=== PATIENT | female | born 1975 | race Two or more races ===

== ENCOUNTER 2020-02-10 22:58 | Emergency (ER) | payer MEDICAID, OTHER ==
[~2020-02-10] VITALS: Ht 154.9 cm; Wt 71.2 kg
[2020-02-10] MEDS ORDERED: LIDOCAINE HCL 1 % PF INJ 2ML AMP IJ ONE (23:30)
[2020-02-10 23:57] VITALS: BP 155/76
== END 2020-02-11 00:26 | disposition home or self-care (01) ==
LOC: ER 22:58
DX: L03.011 Cellulitis of right finger (principal)
CPT/HCPCS: 10060

== ENCOUNTER 2020-06-19 01:11 | Emergency (ER) | payer MEDICAID ==
[~2020-06-19] VITALS: Ht 152.4 cm; Wt 77.1 kg
[2020-06-19] MEDS ORDERED: ONDANSETRON ODT 4 MG TAB PO ONE (01:15)
[2020-06-19 01:23] VITALS: BP 144/117
[2020-06-19] MEDS ORDERED: LORazepam 0.5 MG TAB PO ONE (01:30)
[2020-06-19 01:53] LABS: Urine Bacteria FEW /hpf (None Seen); Urine Blood Negative /uL (Negative); Urine Specific Gravity 1.014 (1.001-1.035); Urine WBC 3 /hpf (0 - 5)
== END 2020-06-19 06:30 | disposition left against medical advice (07) ==
LOC: ER 01:11
DX: R06.02 Shortness of breath (principal); Z53.21 Procedure and treatment not carried out due to patient leaving prior to being seen by health care provider
CPT/HCPCS: 71045; 81001; 93005; Q0162

== ENCOUNTER 2020-06-20 22:11 | Emergency (ER) | payer MEDICAID ==
[~2020-06-20] VITALS: Ht 160 cm; Wt 71.2 kg
[2020-06-20] MEDS ORDERED: LORazepam 2MG/ML-1ML VIAL IV ONE (23:00)
[2020-06-20 23:18] LABS: Urine Bacteria NONE SEEN /hpf (None Seen); Urine Blood Negative /uL (Negative); Urine Specific Gravity 1.036 (1.001-1.035); Urine WBC 1 /hpf (0 - 5)
[2020-06-20 23:18] LABS: Basophils # (auto) 0 10 ^3/uL (0-0.2); Eosinophils # (auto) 0.1 10 ^3/uL (0-0.8); Lymphocytes # (auto) 2.1 10 ^3/uL (0.4-5.4); Lymphocytes % (auto) 26.8 % (10.0-50.0); Monocytes # (auto) 0.4 10 ^3/uL (0-1.3); Nucleated Red Blood Cells % 0.1 %; Platelet Count (auto) 153 10^3/uL (140-450); White Blood Cell 7.7 10^3/uL (4.4-10.8)
[2020-06-20 23:19] LABS: Basophils % (auto) 0.5 % (0.0-2.0); Eosinophils % (auto) 1.4 % (0.0-7.0); Hematocrit 44.3 % (36.0-46.0); Hemoglobin 14.7 g/dL (12.2-16.2); Mean Corpuscular Hemoglobin 26.7 pg (28.0-32.0); Mean Corpuscular Hgb Conc. 33.1 g/dL (32.0-36.0); Mean Corpuscular Volume 80.8 fL (80.0-100.0); Monocytes % (auto) 5.6 % (0.0-12.0); Neutrophils % (auto) 65.7 % (37.0-80.0); Red Blood Cells 5.48 10^6/uL (4.0-5.20); Red Cell Distribution Width 14.1 % (11.8-14.3)
[2020-06-20 23:36] LABS: Alanine Aminotransferase 28 U/L (13-56); Albumin 3.5 g/dL (3.4-5.0); Anion Gap 8 (5-15); Aspartate Aminotransferase 17 U/L (15-37); BUN/Creatinine Ratio 10.1; Blood Urea Nitrogen 7 mg/dL (7-18); Calcium 8.4 mg/dL (8.5-10.1); Carbon Dioxide 21 mmol/L (21-32); Chloride 107 mmol/L (98-107); GFR African American 120 mL/min; GFR Non-African American 99 mL/min; Glucose 335 mg/dL (74-106); Magnesium 2.6 mg/dL (1.6-2.6); Potassium 3.3 mmol/L (3.5-5.1); Sodium 136 mmol/L (136-145)
[2020-06-20 23:41] LABS: Alkaline Phosphatase 159 U/L (45-117); Total Protein 7.7 g/dL (6.4-8.2)
[2020-06-20 23:42] LABS: Alcohol, Urine < 3.0 mg/dL (0-10); Amphetamine Screen, Urine NEGATIVE (NEGATIVE); Barbiturate Scree,Urine NEGATIVE (NEGATIVE); Benzodiazephine Screen, Urine NEGATIVE (NEGATIVE); Cannabinoid Screen, Urine NEGATIVE (NEGATIVE); Cocaine Screen, Urine NEGATIVE (NEGATIVE); Opiate Scree,Urine NEGATIVE (NEGATIVE); Phencyclidine Screen, Urine NEGATIVE (NEGATIVE)
[2020-06-21] MEDS ORDERED: ONDANSETRON HCL 4 MG/2 ML VIAL IV ONE (00:45)
[2020-06-21] MEDS ORDERED: MORPHINE SULFATE 4 MG/ML SYR/VIAL IV ONE (00:45)
[2020-06-21] MEDS ORDERED: ONDANSETRON ODT 4 MG TAB PO ONE (02:30)
[2020-06-21] MEDS ORDERED: HYDROcodone-ACET 5/325MG TAB PO ONE (02:30)
[2020-06-21 04:00] VITALS: BP 129/74
[2020-06-21] MEDS ORDERED: LORazepam 0.5 MG TAB PO ONE (04:45)
== END 2020-06-21 05:08 | disposition home or self-care (01) ==
LOC: ER 22:11
DX: R07.89 Other chest pain (principal); F41.9 Anxiety disorder, unspecified; Z88.0 Allergy status to penicillin; Z88.8 Allergy status to other drugs, medicaments and biological substances
CPT/HCPCS: 36415; 71045; 80053; 80307; 81001; 83735; 83880; 84484; 85025; 93005; 96374; 96375; 99285; J2060; J2270; J2405; Q0162

== ENCOUNTER 2020-10-14 17:28 | Emergency (ER) | payer MEDICAID ==
[~2020-10-14] VITALS: Ht 154.9 cm; Wt 80.7 kg
[2020-10-14 17:51] VITALS: BP 157/94
== END 2020-10-14 20:43 | disposition home or self-care (01) ==
LOC: ER 17:30
DX: J18.9 Pneumonia, unspecified organism (principal); Z20.828 Contact with and (suspected) exposure to other viral communicable diseases; Z88.0 Allergy status to penicillin
CPT/HCPCS: 36415; 71045; 87426; 99284; U0003

== ENCOUNTER 2020-10-16 13:56 | Emergency (ER) | payer MEDICAID ==
[~2020-10-16] VITALS: Ht 154.9 cm; Wt 77.1 kg
[2020-10-16 15:44] VITALS: BP 146/74
== END 2020-10-16 20:18 | disposition left against medical advice (07) ==
LOC: ER 13:56
DX: R06.02 Shortness of breath (principal); R05 Cough; R50.9 Fever, unspecified; Z53.21 Procedure and treatment not carried out due to patient leaving prior to being seen by health care provider
CPT/HCPCS: 93005

== ENCOUNTER 2022-03-27 00:57 | Emergency (ER) | payer MEDICAID ==
[~2022-03-27] VITALS: Ht 154.9 cm; Wt 74.8 kg
[2022-03-27 02:41] LABS: Urine Bacteria NONE SEEN /hpf (None Seen); Urine Blood Negative /uL (Negative); Urine Specific Gravity 1.016 (1.001-1.035); Urine WBC 1 /hpf (0 - 5)
[2022-03-27 03:09] LABS: Basophils # (auto) 0 10 ^3/uL (0-0.2); Basophils % (auto) 0.3 % (0.0-2.0); Eosinophils # (auto) 0.2 10 ^3/uL (0-0.8); Eosinophils % (auto) 1.8 % (0.0-7.0); Hematocrit 41.1 % (36.0-46.0); Hemoglobin 14.1 g/dL (12.2-16.2); Lymphocytes # (auto) 3.1 10 ^3/uL (0.4-5.4); Lymphocytes % (auto) 30.3 % (10.0-50.0); Mean Corpuscular Hemoglobin 27.6 pg (28.0-32.0); Mean Corpuscular Hgb Conc. 34.2 g/dL (32.0-36.0); Mean Corpuscular Volume 80.8 fL (80.0-100.0); Monocytes # (auto) 0.5 10 ^3/uL (0-1.3); Monocytes % (auto) 5.1 % (0.0-12.0); Neutrophils # (auto) 6.3 10 ^3/uL (1.6-8.6); Neutrophils % (auto) 62.5 % (37.0-80.0); Nucleated Red Blood Cells % 0.1 %; Red Blood Cells 5.09 10^6/uL (4.0-5.20); Red Cell Distribution Width 13.7 % (11.8-14.3); White Blood Cell 10.1 10^3/uL (4.4-10.8)
[2022-03-27 03:23] LABS: Albumin 3.9 g/dL (3.4-5.0); BUN/Creatinine Ratio 19.8; Calcium 8.9 mg/dL (8.5-10.1); Potassium 3.8 mmol/L (3.5-5.1)
[2022-03-27 03:25] LABS: Bilirubin, Total 0.7 mg/dL (0.2-1.0)
[2022-03-27] MEDS ORDERED: KETOROLAC TROMETH 60MG/2ML VIAL IM ONE (04:00)
[2022-03-27 04:53] VITALS: BP 111/71
== END 2022-03-27 04:55 | disposition home or self-care (01) ==
LOC: ER 00:57
DX: R10.31 Right lower quadrant pain (principal); E11.9 Type 2 diabetes mellitus without complications; Z88.0 Allergy status to penicillin; Z88.8 Allergy status to other drugs, medicaments and biological substances
CPT/HCPCS: 36415; 80053; 81001; 81025; 85025; 96372; 99283; J1885

== ENCOUNTER 2022-04-19 19:29 | Emergency (ER) | payer MEDICAID ==
[~2022-04-19] VITALS: Ht 152.4 cm; Wt 74.8 kg
[2022-04-19 19:29] VITALS: BP 147/62
[2022-04-19 20:50] LABS: Basophils # (auto) 0 10 ^3/uL (0-0.2); Basophils % (auto) 0.5 % (0.0-2.0); Eosinophils # (auto) 0.1 10 ^3/uL (0-0.8); Eosinophils % (auto) 1.3 % (0.0-7.0); Hematocrit 39.2 % (36.0-46.0); Hemoglobin 13.4 g/dL (12.2-16.2); Lymphocytes # (auto) 2.9 10 ^3/uL (0.4-5.4); Lymphocytes % (auto) 31.2 % (10.0-50.0); Mean Corpuscular Hemoglobin 27.2 pg (28.0-32.0); Mean Corpuscular Hgb Conc. 34.2 g/dL (32.0-36.0); Mean Corpuscular Volume 79.5 fL (80.0-100.0); Monocytes # (auto) 0.5 10 ^3/uL (0-1.3); Monocytes % (auto) 5.8 % (0.0-12.0); Neutrophils # (auto) 5.6 10 ^3/uL (1.6-8.6); Neutrophils % (auto) 61.2 % (37.0-80.0); Nucleated Red Blood Cells % 0.1 %; Red Blood Cells 4.93 10^6/uL (4.0-5.20); Red Cell Distribution Width 13.5 % (11.8-14.3); White Blood Cell 9.2 10^3/uL (4.4-10.8)
[2022-04-19 21:02] LABS: Calcium 9.1 mg/dL (8.5-10.1); Magnesium 2.3 mg/dL (1.6-2.6); Potassium 3.9 mmol/L (3.5-5.1)
[2022-04-19 21:04] LABS: BUN/Creatinine Ratio 22.7
[2022-04-19 21:07] LABS: Bilirubin, Total 0.7 mg/dL (0.2-1.0)
== END 2022-04-20 02:45 | disposition home or self-care (01) ==
LOC: ER 19:33
DX: B34.9 Viral infection, unspecified (principal); R07.89 Other chest pain; M94.0 Chondrocostal junction syndrome [Tietze]; E11.9 Type 2 diabetes mellitus without complications; I10 Essential (primary) hypertension; Z98.51 Tubal ligation status; Z90.49 Acquired absence of other specified parts of digestive tract; Z88.0 Allergy status to penicillin
CPT/HCPCS: 36415; 71045; 80053; 83735; 83880; 84484; 84702; 85025; 85379; 93005

== ENCOUNTER 2022-04-30 14:35 | Emergency (ER) | payer MEDICAID ==
[~2022-04-30] VITALS: Ht 154.9 cm; Wt 74.8 kg
[2022-04-30 14:40] VITALS: BP 128/78
[2022-04-30 15:21] LABS: Urine Bacteria FEW /hpf (None Seen); Urine Blood Negative /uL (Negative); Urine Specific Gravity 1.001 (1.001-1.035); Urine WBC <1 /hpf (0 - 5)
[2022-04-30 15:49] LABS: Basophils # (auto) 0.1 10 ^3/uL (0-0.2); Eosinophils # (auto) 0.1 10 ^3/uL (0-0.8); Eosinophils % (auto) 1.4 % (0.0-7.0); Hematocrit 42.2 % (36.0-46.0); Hemoglobin 14.3 g/dL (12.2-16.2); Lymphocytes # (auto) 3.1 10 ^3/uL (0.4-5.4); Lymphocytes % (auto) 30.7 % (10.0-50.0); Mean Corpuscular Hemoglobin 27.2 pg (28.0-32.0); Mean Corpuscular Volume 80.2 fL (80.0-100.0); Monocytes # (auto) 0.5 10 ^3/uL (0-1.3); Monocytes % (auto) 5.1 % (0.0-12.0); Neutrophils # (auto) 6.3 10 ^3/uL (1.6-8.6); Neutrophils % (auto) 61.8 % (37.0-80.0); Nucleated Red Blood Cells % 0.3 %; Red Blood Cells 5.26 10^6/uL (4.0-5.20); Red Cell Distribution Width 13.4 % (11.8-14.3); White Blood Cell 10.2 10^3/uL (4.4-10.8)
[2022-04-30 16:04] LABS: BUN/Creatinine Ratio 21.5; Calcium 9.3 mg/dL (8.5-10.1); Potassium 3.7 mmol/L (3.5-5.1)
[2022-04-30] MEDS ORDERED: SODIUM CHLORIDE 0.9% 1,000 ML IV ONE (16:15)
[2022-04-30] MEDS ORDERED: ONDANSETRON ODT 4 MG TAB PO ONE (16:15)
[2022-04-30] MEDS ORDERED: ONDA-144 PO (16:17)
[2022-04-30] MEDS ORDERED: HYDROcodone-ACET 5/325MG TAB PO ONE (16:30)
[2022-04-30 16:48] LABS: Alcohol, Urine < 3.0 mg/dL (0-10); Amphetamine Screen, Urine NEGATIVE (NEGATIVE); Barbiturate Scree,Urine NEGATIVE (NEGATIVE); Benzodiazephine Screen, Urine NEGATIVE (NEGATIVE); Cannabinoid Screen, Urine NEGATIVE (NEGATIVE); Cocaine Screen, Urine NEGATIVE (NEGATIVE); Opiate Scree,Urine NEGATIVE (NEGATIVE); Phencyclidine Screen, Urine NEGATIVE (NEGATIVE)
[2022-04-30 16:51] LABS: Lactic Acid w/Reflex 2.3 mmol/L (0.4-2.0)
== END 2022-04-30 17:24 | disposition home or self-care (01) ==
LOC: ER 14:35
DX: K59.00 Constipation, unspecified (principal); E11.9 Type 2 diabetes mellitus without complications; I10 Essential (primary) hypertension; Z90.49 Acquired absence of other specified parts of digestive tract; Z98.51 Tubal ligation status; Z88.0 Allergy status to penicillin
CPT/HCPCS: 36415; 74176; 80048; 80307; 81001; 82962; 83605; 83690; 83735; 84702; 85025; 99284; Q0162

== ENCOUNTER 2022-05-25 14:56 | Emergency (ER) | payer MEDICAID ==
[~2022-05-25] VITALS: Ht 152.4 cm; Wt 69.9 kg
[~2022-05-25 14:56] MED LIST: ONDA-144 PO
[2022-05-25 16:15] VITALS: BP 157/91
[2022-05-25] MEDS ORDERED: HYDROcodone-ACET 5/325MG TAB PO ONE (16:15)
[2022-05-25] MEDS ORDERED: ONDANSETRON ODT 4 MG TAB PO ONE (16:15)
== END 2022-05-25 17:11 | disposition home or self-care (01) ==
LOC: ER 14:56
DX: S83.512A Sprain of anterior cruciate ligament of left knee, initial encounter (principal); I10 Essential (primary) hypertension; E11.9 Type 2 diabetes mellitus without complications; Z90.49 Acquired absence of other specified parts of digestive tract; Z79.899 Other long term (current) drug therapy; Z88.0 Allergy status to penicillin; Z88.8 Allergy status to other drugs, medicaments and biological substances; W18.39XA Other fall on same level, initial encounter; Y93.89 Activity, other specified; Y92.89 Other specified places as the place of occurrence of the external cause; Y99.8 Other external cause status
CPT/HCPCS: 29505; 73562; 93971; 99284; Q0162

== ENCOUNTER 2022-07-10 18:58 | Emergency (ER) | payer MEDICAID ==
[~2022-07-10] VITALS: Ht 152.4 cm; Wt 76.8 kg
[2022-07-10] MEDS ORDERED: ALBUTEROL SULF 2.5 MG/0.5ML(0.5%) NEB SOLN NEB ONE (20:15)
[2022-07-10] MEDS ORDERED: ASPirin 325 MG TAB PO ONE (20:15)
[2022-07-10] MEDS ORDERED: IPRATROPIUM BROM 0.5 MG/2.5ML INH SOL NEB ONE (20:15)
[2022-07-10 20:32] LABS: Basophils # (auto) 0.1 10 ^3/uL (0-0.2); Eosinophils # (auto) 0.1 10 ^3/uL (0-0.8); Lymphocytes # (auto) 3.4 10 ^3/uL (0.4-5.4); Monocytes # (auto) 0.7 10 ^3/uL (0-1.3); Nucleated Red Blood Cells % 0.1 %
[2022-07-10 20:33] LABS: Basophils % (auto) 0.7 % (0.0-2.0); Hematocrit 41.9 % (36.0-46.0); Hemoglobin 13.6 g/dL (12.2-16.2); Lymphocytes % (auto) 30.7 % (10.0-50.0); Mean Corpuscular Hemoglobin 25.6 pg (28.0-32.0); Mean Corpuscular Hgb Conc. 32.4 g/dL (32.0-36.0); Mean Corpuscular Volume 79.1 fL (80.0-100.0); Monocytes % (auto) 6.3 % (0.0-12.0); Neutrophils # (auto) 6.8 10 ^3/uL (1.6-8.6); Neutrophils % (auto) 61.3 % (37.0-80.0); Red Cell Distribution Width 13.9 % (11.8-14.3); White Blood Cell 11.1 10^3/uL (4.4-10.8)
[2022-07-10 21:04] LABS: Calcium 9.5 mg/dL (8.5-10.1); Potassium 3.7 mmol/L (3.5-5.1)
[2022-07-10 21:08] LABS: BUN/Creatinine Ratio 28.8; Bilirubin, Total 0.9 mg/dL (0.2-1.0); Total Protein 7.7 g/dL (6.4-8.2)
[2022-07-11] MEDS ORDERED: SODIUM CHLORIDE 0.9% 1,000 ML IV ONE (01:45)
[2022-07-11] MEDS ORDERED: HYDROcodone-ACET 5/325MG TAB PO ONE (02:00)
[2022-07-11 04:14] LABS: Urine Bacteria NONE SEEN /hpf (None Seen); Urine Blood Negative /uL (Negative); Urine Specific Gravity 1.029 (1.001-1.035); Urine WBC 2 /hpf (0 - 5)
[2022-07-11] MEDS ORDERED: ONDA-144 PO (04:19)
[2022-07-11] MEDS ORDERED: ONDANSETRON ODT 4 MG TAB PO ONE (05:15)
[2022-07-11] MEDS ORDERED: MECLIZINE HCL 25 MG TAB PO ONE (05:15)
[2022-07-11 05:30] VITALS: BP 123/76
[2022-07-11] MEDS ORDERED: MECL25TA18 PO (07:05)
== END 2022-07-11 07:15 | disposition home or self-care (01) ==
LOC: ER 18:58
DX: R42 Dizziness and giddiness (principal); R06.00 Dyspnea, unspecified; Z88.0 Allergy status to penicillin; Z88.8 Allergy status to other drugs, medicaments and biological substances; Z20.822 Contact with and (suspected) exposure to COVID-19
CPT/HCPCS: 36415; 71045; 71260; 74177; 80053; 81001; 82962; 83605; 84484; 85025; 85379; 87426; 87804; 93005; 94640; 99285; J7644; J8597; Q0162

== ENCOUNTER 2022-12-09 16:57 | Emergency (ER) | payer MEDICAID ==
[~2022-12-09] VITALS: Ht 154.9 cm; Wt 77.2 kg
[~2022-12-09 16:57] MED LIST changes: +MECL25TA18 PO
[2022-12-09 17:05] VITALS: BP 135/73
[2022-12-09] MEDS ORDERED: SODIUM CHLORIDE 0.9% 1,000 ML IV ONE (17:15)
[2022-12-09] MEDS ORDERED: ONDANSETRON HCL 4 MG/2 ML VIAL IV ONE (17:15)
[2022-12-09 17:59] LABS: Basophils # (auto) 0 10 ^3/uL (0-0.2); Basophils % (auto) 0.2 % (0.0-2.0); Eosinophils # (auto) 0 10 ^3/uL (0-0.8); Eosinophils % (auto) 0.3 % (0.0-7.0); Lymphocytes # (auto) 0.7 10 ^3/uL (0.4-5.4); Monocytes # (auto) 0.3 10 ^3/uL (0-1.3); Monocytes % (auto) 2.1 % (0.0-12.0); Nucleated Red Blood Cells % 0.1 %
[2022-12-09 18:01] LABS: Hemoglobin 14.8 g/dL (12.2-16.2); Lymphocytes % (auto) 4.3 % (10.0-50.0); Mean Corpuscular Hgb Conc. 32.3 g/dL (32.0-36.0); Mean Corpuscular Volume 80.6 fL (80.0-100.0); Neutrophils # (auto) 14.3 10 ^3/uL (1.6-8.6); Neutrophils % (auto) 93.1 % (37.0-80.0); Red Cell Distribution Width 14.6 % (11.8-14.3); White Blood Cell 15.4 10^3/uL (4.4-10.8)
[2022-12-09 18:15] LABS: Albumin 4.2 g/dL (3.4-5.0); BUN/Creatinine Ratio 38.2; Calcium 9.2 mg/dL (8.5-10.1); Potassium 3.8 mmol/L (3.5-5.1)
[2022-12-09 18:17] LABS: Bilirubin, Total 1.2 mg/dL (0.2-1.0); Total Protein 8.6 g/dL (6.4-8.2)
[2022-12-09] MEDS ORDERED: DICYCLOMINE HCL 10 MG CAP PO ONE (19:00)
== END 2022-12-09 20:00 | disposition left against medical advice (07) ==
LOC: ER 16:57
DX: R11.2 Nausea with vomiting, unspecified (principal); R10.33 Periumbilical pain; Z53.21 Procedure and treatment not carried out due to patient leaving prior to being seen by health care provider
CPT/HCPCS: 36415; 80053; 85025; 93005; J0500; J2405

== ENCOUNTER 2024-06-04 01:09 | Emergency (ER) | payer MEDICAID ==
[~2024-06-04] VITALS: Ht 152.4 cm; Wt 71.7 kg
[~2024-06-04 01:09] MED LIST changes: +AZIT-43 PO; +HYDR-4902 PO; +MECL-90 PO; -MECL25TA18 PO; +PRED20TA2 PO
[2024-06-04] MEDS ORDERED: HYDR-4902 PO (04:07)
[2024-06-04] MEDS: HYDROcodone-ACET 5/325MG TAB PO ONE (04:36)
[2024-06-04 05:45] VITALS: BP 121/68; PULSE 92; RESP 20; TEMP 98.6; O2SAT 99
== END 2024-06-04 05:49 | disposition home or self-care (01) ==
LOC: ER 01:09
DX: S46.001A Unspecified injury of muscle(s) and tendon(s) of the rotator cuff of right shoulder, initial encounter (principal); M25.511 Pain in right shoulder; Z88.0 Allergy status to penicillin; Z88.8 Allergy status to other drugs, medicaments and biological substances; Z79.52 Long term (current) use of systemic steroids; Z79.899 Other long term (current) drug therapy; X58.XXXA Exposure to other specified factors, initial encounter; Y93.89 Activity, other specified; Y92.89 Other specified places as the place of occurrence of the external cause; Y99.8 Other external cause status
CPT/HCPCS: 73030

== ENCOUNTER 2024-08-14 15:31 | Emergency (ER) | payer MEDICAID ==
[~2024-08-14] VITALS: Ht 152.4 cm; Wt 74.9 kg
[~2024-08-14 15:31] MED LIST changes: +NAP500T PO
[2024-08-14] MEDS: SODIUM CHLORIDE 0.9% 1,000 ML IV ONE (16:15)
[2024-08-14 16:26] LABS: Urine Bacteria None Seen /hpf (None Seen)
[2024-08-14 16:37] LABS: Basophils # (auto) 0 10 ^3/uL (0-0.2); Basophils % (auto) 0.6 % (0.0-2.0); Eosinophils # (auto) 0.1 10 ^3/uL (0-0.8); Eosinophils % (auto) 1.7 % (0.0-7.0); Hematocrit 29.9 % (36.0-46.0); Hemoglobin 8.9 g/dL (12.2-16.2); Lymphocytes % (auto) 29.2 % (10.0-50.0); Mean Corpuscular Hemoglobin 17.9 pg (28.0-32.0); Mean Corpuscular Hgb Conc. 29.7 g/dL (32.0-36.0); Mean Corpuscular Volume 60.2 fL (80.0-100.0); Monocytes # (auto) 0.4 10 ^3/uL (0-1.3); Monocytes % (auto) 5.7 % (0.0-12.0); Neutrophils # (auto) 4.4 10 ^3/uL (1.6-8.6); Neutrophils % (auto) 62.8 % (37.0-80.0); Nucleated Red Blood Cells % 0.1 %; Platelet Count (auto) 294 10^3/uL (140-450); Red Blood Cells 4.97 10^6/uL (4.0-5.20); Red Cell Distribution Width 17.5 % (11.8-14.3); White Blood Cell 6.9 10^3/uL (4.4-10.8)
[2024-08-14 16:43] LABS: Urine Blood Negative /uL (Negative); Urine Clarity Clear (Clear); Urine Color Light-Yellow (Yellow); Urine Protein, UAD Negative (Negative); Urine Specific Gravity 1.018 (1.001-1.035); Urine Urobilinogen Normal (Negative); Urine WBC <1 /hpf (0 - 5); Urine pH 5.5 (5.0-9.0)
[2024-08-14 16:45] LABS: Chloride 107 mmol/L (98-107); Potassium 3.4 mmol/L (3.5-5.1); Sodium 138 mmol/L (136-145)
[2024-08-14 16:46] LABS: Anion Gap 7 (5-15); Calcium 9.3 mg/dL (8.7-10.4); Carbon Dioxide 24 mmol/L (20-31)
[2024-08-14 16:51] LABS: Blood Urea Nitrogen 10 mg/dL (9-23); Glucose 111 mg/dL (74-106)
[2024-08-14 18:30] LABS: Anisocytosis Slight; Hypochromia Marked; Platelet Estimate Adequate
[2024-08-14 18:31] LABS: Stomatocytes Few; Tear Drop Cells FEW
[2024-08-14 19:50] VITALS: BP 132/79; PULSE 78; RESP 16; TEMP 98.5; O2SAT 100
== END 2024-08-14 20:04 | disposition home or self-care (01) ==
LOC: ER 15:31
DX: R53.1 Weakness (principal); E11.65 Type 2 diabetes mellitus with hyperglycemia; I10 Essential (primary) hypertension; K21.9 Gastro-esophageal reflux disease without esophagitis; Z79.52 Long term (current) use of systemic steroids; Z88.0 Allergy status to penicillin; Z90.49 Acquired absence of other specified parts of digestive tract; Z98.51 Tubal ligation status; Z98.890 Other specified postprocedural states
CPT/HCPCS: 36415; 80048; 81001; 82962; 85025; 99283; J7030

== ENCOUNTER 2024-09-10 16:47 | Inpatient (IN) | payer MEDICAID ==
[~2024-09-10] VITALS: Ht 152.4 cm; Wt 77.3 kg
--- NOTE | 2024-09-10 16:59 | ED.PDOC ---
GI ASSESSMENT HPI Comments ABDOMINAL PAIN. LUQ PAIN AND NAUSEA VOMITING, DIARRHEA FOR 4 DAYS. BMS ARE BLACK. EMESIS IS CLEAR. DID NOT CHECK BS Time Seen by MD: 16:48 Primary Care Provider: NAJMA Allergies: Coded Allergies: Diphenhydramine (Verified Allergy, Unknown, 02/10/20) Penicillins (Verified Allergy, Unknown, 02/10/20) Home Meds Active Scripts Naproxen (NAPROSYN TABLET) 500 Mg Tb, 1 TAB PO BID for 5 Days, #10 TAB 1 Refill Prov:SRAVANTHI TSEP 07/03/24 Hydrocodone-Acetaminophen (Hydrocodone Bitartrate/AC 5-325 mg) 1 Tab Tab, 1 TAB PO Q6HPRN PRN, #20 TAB Prov:YOVANY AREVALO PAC 06/04/24 Prednisone (Prednisone) 20 Mg Tab, 20 MG PO BID for 5 Days, #10 TAB 0 Refills Prov:KHANH GARCIAS 11/03/23 Azithromycin (Azithromycin) 250 Mg Tab, 250 MG PO DAILY MDD 500 for 5 Days, #6 TAB 0 Refills 2 TABLETS ORALLY ON DAY ONE, THEN 1 TABLET ORALLY DAILY FOR 4 DAYS Prov:KHANH GARCIAS 11/03/23 Ondansetron (Zofran) 4 Mg Tab, 1 TAB PO Q8HR PRN, #15 TAB 0 Refills Prov:MATEUSZ ROCA 04/09/23 Hydrocodone-Acetaminophen (Hydrocodone Bitartrate/AC 5-325 mg) 1 Tab Tab, 1 TAB PO Q4HPRN PRN, #15 TAB 0 Refills Prov:MATEUSZ ROCA 04/09/23 Meclizine Hcl (Meclizine Hcl) 25 Mg Tab, 25 MG PO TIDPRN PRN for 3 Days, #10 MG Prov:JO ANN ROBERTS DO 07/11/22 Ondansetron (Zofran) 4 Mg Tab, 4 MG PO Q8HPRN PRN for 3 Days, #10 MG Prov:JO ANN ROBERTS DO 07/11/22 Ondansetron (Zofran) 4 Mg Tab, 4 MG PO Q8HPRN PRN for 3 Days, #10 MG Prov:JO ANN ROBERTS DO 04/30/22 Information Source: Patient, [facility] Medical Record, Past Medical Record Mode of Arrival: Ambulatory Timing: Days (4) Duration: Intermittent Prehospital treatment: None Quality: Aching Vomitus: Watery Stool: Black Severity: Moderate Recent: None Recent Hx of: Diabetes Pain Location: LUQ Modifying Factors: Nothing Associated sign and symptoms: Nausea, Vomiting, Diarrhea, Abdominal Pain Past Medical History PAST MEDICAL HISTORY: Anxiety, Depression, DM, High Lipids, HTN Surgical History: Cholecystectomy, , Tubal Ligation Surgical History (Other): BILATERAL CARPAL TUNNEL RELEASE, KNEE SURGERY LIAISON PLANNER History: No Pertinent LIAISON PLANNER History Family History Family History: No family hx of Cancer, No family hx of DM, No family hx of Heart herber, No family hx of HTN, No family hx ofKidney herber, No family hx of Liver herber, No family hx of Lung herber, No family hx of Stroke Social History Smoker: Non-Smoker Alcohol: Denies ETOH Use Drugs: Denies Drug Use Lives In: Home Constitutional: denies: chills, diaphoresis, fatigue, fever, malaise, sweats, weakness, others EENTM: denies: blurred vision, double vision, ear bleeding, ear discharge, ear drainage, ear pain, ear ringing, eye pain, eye redness, hearing loss, mouth pain, mouth swelling, nasal discharge, nose bleeding, nose congestion, nose pain, photophobia, tearing, throat pain, throat swelling, voice changes, others Respiratory: denies: cough, hemoptysis, orthopnea, SOB at rest, shortness of breath, SOB with excertion, stridor, wheezing, others Cardiovascular: denies: chest pain, dizzy spells, diaphoresis, Dyspnea on exertion, edema, irregular heart beat, left arm pain, lightheadedness, palpitations, PND, syncope, others Gastrointestinal: reports: abdominal pain, diarrhea, nausea, vomiting; denies: abdomen distended, blood streaked bowels, constipated, dysphagia, difficulty swallowing, hematemesis, melena, poor appetite, poor fluid intake, rectal bleeding, rectal pain, others Genitourinary: denies: abnormal vagina bleeding, burning, dyspareunia, dysuria, flank pain, frequency, hematuria, incontinence, pain, , vagina discha rge, urgency, others Neurological: denies: dizziness, fainting, headache, left sided numbness, left sided weakness, numbness, paresthesia, pre-existing deficit, right sided numbness, right sided weakness, seizure, speech problems, tingling, tremors, weakness, others Musculoskeletal: denies: back pain, gout, joint pain, joint swelling, muscle pain, muscle stiffness, neck pain, others Integumetry: denies: bruises, change in color, change in hair/nails, dryness, laceration, lesions, lumps, rash, wounds, others Allergic/Immunocompromised: denies: Difficulty Healing, Frequent Infections, Hives, Itching, others Hematologic/Lymphatic: denies: anemia, blood clots, easy bleeding, easy bruising, swollen glands, others Endocrine: denies: excessive hunger, excessive sweating, excessive thirst, excessive urination, flushing, intolerance to cold, intolerance to heat, unexplained weight gain, unexplained weight loss, others Psychiatric: denies: anxiety, bipolar disorder, depression, hopeless, panic disorder, schizophrenia, sleepless, suicidal, others All Other Systems: Reviewed and Negative Physical Exam General Appearance: No Apparent Distress, Normal HEENT: Normal ENT Inspection, Pharynx Normal, TMs Normal Neck: Full Range of Motion, Non-Tender, Normal, Normal Inspection Respiratory: Chest Non-Tender, Lungs Clear, No Accessory Muscle Use, No Respiratory Distress, Normal Breath Sounds Cardiovascular: No Edema, No JVD, No Murmur, No Gallop, Normal Peripheral Pulses, Regular Rate/Rhythm Breast Exam: Deferred Gastrointestinal: LUQ, No Organomegaly, No Pulsatile Mass, Normal Bowel Sounds, Soft, Tenderness Genitalia: Deferred Pelvic: Deferred Rectal: Heme negative stool, Normal Exam, Normal rectal tone Extremities: No calf tenderness, Normal capillary refill, Normal inspection, Normal range of motion, Non-tender, No pedal edema Musculoskeletal : Apperance: Normal Neurologic: Alert, salt washer II-XII nml as Tested, No Motor Deficits, Normal Affect, Normal Mood, No Sensory Deficits Cerebellar Function: Normal Reflexes: Normal Skin: Dry, Normal Color, Warm Lymphatic: No Adenopathy Was a procedure done? Was a procedure done?: No GI differential Dx Differential Diagnosis: Appendicitis, Complete , Incomplete , Inevitable , Missed , Threatened , Abruptio placentae, Bowel Obstruction, Cholangitis, Cholecystitis, Constipation, Diverticular disease, Dysmenorrhea, Ectopic , Esophagitis, Gastritis/PUD, Gastroenteritis, Hernia, Hepatitis, Inflammatory BD, Ovarian cyst/torsion, Pancreatitis, Urinary Obstruction, UTI, Urolithiasis, Dehydration, Diabetes/ DKA, Electrolyte Imbalance, Food Poisoning, , Bacterial, Parasitic, Hypovolemia, Impaction, Malnutrition, Renal Failure, Ischemic Bowel, Mass, Anemia, Stress Ulcer, Kidney Stone X-Ray, Labs, Meds, VS Vital Signs Date Time Temp Pulse Resp B/P (MAP) Pulse Ox O2 Delivery O2 Flow Rate FiO2 09/10/24 17:47 98.8 96 17 118/58 (78) 99 98.8 09/10/24 17:47 96 17 99 Room Air 09/10/24 16:59 98.1 107 18 131/61 (84) 100 Lab Test 09/10/24 18:13 09/10/24 17:02 Range/Units White Blood Count 6.6 4.4-10.8 10^3/uL Red Blood Count 4.74 4.0-5.20 10^6/uL Hemoglobin 8.2 L 12.2-16.2 g/dL Hematocrit 28.7 L 36.0-46.0 % Mean Corpuscular Volume 60.6 L 80.0-100.0 fL Mean Corpuscular Hemoglobin 17.3 L 28.0-32.0 pg Mean Corpuscular Hemoglobin Concent 28.6 L 32.0-36.0 g/dL Red Cell Distribution Width 19.5 H 11.8-14.3 % Platelet Count 293 140-450 10^3/uL Mean Platelet Volume 8.5 6.9-10.8 fL Neutrophils (%) (Auto) 63.9 37.0-80.0 % Lymphocytes (%) (Auto) 27.2 10.0-50.0 % Monocytes (%) (Auto) 6.6 0.0-12.0 % Eosinophils (%) (Auto) 1.6 0.0-7.0 % Basophils (%) (Auto) 0.7 0.0-2.0 % Neutrophils # (Auto) 4.2 1.6-8.6 10 ^3/uL Lymphocytes # (Auto) 1.8 0.4-5.4 10 ^3/uL Monocytes # (Auto) 0.4 0-1.3 10 ^3/uL Eosinophils # (Auto) 0.1 0-0.8 10 ^3/uL Basophils # (Auto) 0 0-0.2 10 ^3/uL Nucleated Red Blood Cells 0.1 % Platelet Estimate Pending Sodium Level 137 136-145 mmol/L Potassium Level 4.1 3.5-5.1 mmol/L Chloride Level 110 H 98-107 mmol/L Carbon Dioxide Level 19 L 20-31 mmol/L Anion Gap 8 5-15 Blood Urea Nitrogen 12 9-23 mg/dL Creatinine 0.73 0.550-1.02 mg/dL Glomerular Filtration Rate Calc 102 >90 mL/min BUN/Creatinine Ratio 16.4 10.0-20.0 Serum Glucose 268 H 74-106 mg/dL Calcium Level 9.2 8.7-10.4 mg/dL Total Bilirubin 0.8 0.2-1.0 mg/dL Aspartate Amino Transferase (AST) 27 13-40 U/L Alanine Aminotransferase (ALT) 40 7-40 U/L Alkaline Phosphatase 158 H 46-116 U/L Total Protein 6.9 5.7-8.2 g/dL Albumin 4.6 3.2-4.8 g/dL Lipase 64 H 12-53 U/L Beta HCG, Quantitative 0.8 L 1.5-4.2 mIU/mL Current Medications Medications (Trade) Dose Ordered Sig/Ragini Route Start Time Stop Time Status Last Admin Sodium Chloride 1,000 ml @ 1,000 mls/hr Q1H ONCE IV 09/10/24 17:00 09/10/24 17:59 DC 09/10/24 17:39 Ondansetron HCl (Zofran) 4 mg ONCE ONCE IV 09/10/24 17:00 09/10/24 17:01 DC 09/10/24 17:44 Insulin Human Regular (InsuLIN R) 2 units ONCE ONCE IV 09/10/24 17:15 09/10/24 17:23 DC 09/10/24 17:46 Diagnostic Test (Pha) (Accu-Chek Comfort Curve T) 1 strip ONCE ONCE 09/10/24 17:30 09/10/24 17:31 DC 09/10/24 17:37 Time of 1ST Reevaluation: 18:00 Reevaluation 1ST: Unchanged Time of 2ND Reevaluation: 18:47 Reevaluation 2ND: Unchanged Consultation: Other (admitting provider) Patient Education/Counseling: Diagnosis, Treatment, Prognosis, Need For Follow Up Family Education/Counseling: No Family Present Additional Information although pt is not in DKA, she continues to feel nausea and pain. kub shows she is constipated, but she may need more advanced imaging. she is acidotic, though with out an AG. with her continuing having nausea, she is at riak to worsen and progress into DKA. pt has uncontrolled DM, due to her GI symptoms and will need to be admitted to control her symptoms, further evaluated for the abdominal p ain, and to control her BS Departure 1 Departure Time of Disposition: 18:49 Impression: Primary Impression: Uncontrolled diabetes mellitus Qualified Codes: E10.65 - Type 1 diabetes mellitus with hyperglycemia Additional Impressions: Metabolic acidosis Intractable nausea Abdominal pain Qualified Codes: R10.12 - Left upper quadrant pain Constipation Qualified Codes: K59.01 - Slow transit constipation Anemia Qualified Codes: D64.9 - Anemia, unspecified Alkaline phosphatase elevation Elevated lipase Disposition: ADMITTED INPATIENT Condition: Stable Critical Care Note Critical Care Time?: Yes (55 min-critical care time only) Critical care comment: due to the possibliety of deterioration of patients condition, causing life threatening processes, her care required my highest level of attention. i ordered the proper tests, reviewed the results, formulated a plan of care, communicated with medical personnel, and consulted with hospitalist. i reassessed her respond to treatment and reformulated [facility] care plan. total time include at least 50% face to face contact, excluding any procedures Stability Stability form required: RADHA Mclean MD Sep 10, 2024 16:59
[2024-09-10] MEDS: ACCU-CHEK COMFORT CURVE STRIP VI ONE (17:37)
[2024-09-10] MEDS: SODIUM CHLORIDE 0.9% 1,000 ML IV ONE (17:39)
[2024-09-10] MEDS: ONDANSETRON HCL 4 MG/2 ML VIAL IV ONE ×2 (17:44→20:36)
[2024-09-10 17:46] LABS: Alanine Aminotransferase 40 U/L (7-40); Albumin 4.6 g/dL (3.2-4.8); Alkaline Phosphatase 158 U/L (46-116); Anion Gap 8 (5-15); Aspartate Aminotransferase 27 U/L (13-40); BUN/Creatinine Ratio 16.4 (10.0-20.0); Blood Urea Nitrogen 12 mg/dL (9-23); Calcium 9.2 mg/dL (8.7-10.4); Carbon Dioxide 19 mmol/L (20-31); Chloride 110 mmol/L (98-107); Glucose 268 mg/dL (74-106); Lipase 64 U/L (12-53); Potassium 4.1 mmol/L (3.5-5.1); Sodium 137 mmol/L (136-145)
[2024-09-10] MEDS: InsuLIN REG 1unit/0.01ml Soln (100units/ml) IV ONE (17:46)
[2024-09-10 17:47] LABS: Bilirubin, Total 0.8 mg/dL (0.2-1.0); Total Protein 6.9 g/dL (5.7-8.2)
[2024-09-10 18:32] LABS: Basophils # (auto) 0 10 ^3/uL (0-0.2); Basophils % (auto) 0.7 % (0.0-2.0); Eosinophils # (auto) 0.1 10 ^3/uL (0-0.8); Eosinophils % (auto) 1.6 % (0.0-7.0); Hematocrit 28.7 % (36.0-46.0); Hemoglobin 8.2 g/dL (12.2-16.2); Lymphocytes # (auto) 1.8 10 ^3/uL (0.4-5.4); Lymphocytes % (auto) 27.2 % (10.0-50.0); Mean Corpuscular Hemoglobin 17.3 pg (28.0-32.0); Mean Corpuscular Hgb Conc. 28.6 g/dL (32.0-36.0); Mean Corpuscular Volume 60.6 fL (80.0-100.0); Monocytes # (auto) 0.4 10 ^3/uL (0-1.3); Monocytes % (auto) 6.6 % (0.0-12.0); Neutrophils # (auto) 4.2 10 ^3/uL (1.6-8.6); Neutrophils % (auto) 63.9 % (37.0-80.0); Nucleated Red Blood Cells % 0.1 %; Platelet Count (auto) 293 10^3/uL (140-450); Red Blood Cells 4.74 10^6/uL (4.0-5.20); Red Cell Distribution Width 19.5 % (11.8-14.3); White Blood Cell 6.6 10^3/uL (4.4-10.8)
--- NOTE | 2024-09-10 18:43 | DVH ---
Exam: XY KUB ABDOMEN SINGLE VIEW Indication: R/O CONSTIPATION, ILEUS, SBO Comparison: None Technique: 3 radiographic views of the abdomen. Findings: Post cholecystectomy. Mildly distended stomach. Moderate volume colonic stool. Nonobstructive bowel gas pattern noted. There is no definite evidence for pneumoperitoneum. No abnormal calcifications noted. Impression: Mildly distended stomach and moderate volume colonic stool.
[2024-09-10 19:55] LABS: Anisocytosis Slight; Hypochromia Marked; Platelet Estimate Adequate
[2024-09-10 20:06] VITALS: PULSE 82; RESP 18; O2SAT 96
[2024-09-10] MEDS: KETOROLAC TROMETH 30 MG/ML 1ML VIAL IV ONE (20:35)
--- NOTE | 2024-09-10 21:05 | DVH ---
Exam: CT CT AB PEL WO CON-NO ORAL OR IV History: luq pain Comparison Study: CT ABD PELVIS WO CONTRAST on DOS: 04/30/22 TECHNIQUE: Multidetector CT of the abdomen and pelvis was performed from lung bases to pubic symphysi s. Imaging was performed without IV contrast. Axial, coronal, and sagittal multiplanar reformats were obtained from the axial data set by the technologist. RADIATION DOSE: DLP 693.79 mGy.cm; CTDI vol 12.31 mGy. Findings: Lungs: The lung bases are clear. Heart: The visualized heart is unremarkable. No cardiomegaly or pericardial effusion. Liver: Unremarkable. Gallbladder: Cholecystectomy. Spleen: Unremarkable Pancreas: Unremarkable Adrenals: Unremarkable Kidneys: Unremarkable GI tract: Unremarkable : Unremarkable. Vasculature: Unremarkable Lymphadenopathy: Absent Peritoneum: No ascites Musculoskeletal: Unremarkable Soft tissues: Unremarkable Impression: 1. No acute abdominopelvic abnormalities.
[2024-09-10] MEDS ORDERED: ACETAMINOPHEN 325 MG TAB PO PRN (22:00)
[2024-09-10] MEDS ORDERED: MORPHINE SULFATE INJ 2 MG/ml SYRG IV PRN (22:00)
[2024-09-10] MEDS: SODIUM CHLORIDE 0.9% 1,000 ML IV SCH (22:00)
[2024-09-10] MEDS: ACCU-CHEK COMFORT CURVE STRIP VI SCH (22:00)
[2024-09-10] MEDS ORDERED: DEXTROSE (50%) 50ML SYRG IV PRN (22:00)
[2024-09-10] MEDS: InsuLIN REG 1unit/0.01ml Soln (100units/ml) SC SCH (22:27)
[2024-09-10] MEDS: HYDROcodone-ACET 5/325MG TAB PO PRN (22:55)
[2024-09-11] VITALS (10 sets, daily range): BP systolic 112–138; BP diastolic 61–72; PULSE 73–85; RESP 17–20; TEMP 97.9–98.4; O2SAT 96–100
[2024-09-11] MEDS ORDERED: LACTULOSE 20Gm/30ML SOLN PO PRN (00:45)
--- NOTE | 2024-09-11 00:54 | DVHHP2 ---
CHEKO DUBON PRESSURE SUPERVISOR 09/11/24 0054: History of Present Illness Reason for Visit: Abdominal pain History of Present Illness 49-year-old female with past medical history of DM presents with complaints of Of Left sided abdominal pain with nausea, vomiting, diarrhea times four days. Patient endorses stool has been black. Denies iron supplements and black emesis. FeroSul 325mg prescribed 08/30/24 Patient endorsed she was told last month She was anemic. States previous blood work nine months ago was normal. Also endorses she has not been compliant with her anti-diabetic medication. Denies fevers, chills, Dizziness, Shortness of breath, chest pain, palpitations, hematemesis. Endocrine: Diabetes Review of Systems Constitutional: No: Fever, Chills, Sweats, Weakness, Malaise, Other Eyes: No: Pain, Vision change, Conjunctivae inflammation, Eyelid inflammation, Other, Redness ENT: No: Ear pain, Ear discharge, Nose pain, Nose discharge, Nose congestion, Mouth pain, Mouth swelling, Throat pain, Throat swelling, Other Respiratory: No: Cough, Dry, Shortness of breath, SOB with excertion, Wheezing, Hemoptysis, Pleuritic Pain, Sputum, Wheezing, Other Cardiovascular: No: Chest Pain, Palpitations, Orthopnea, Paroxysmal Noc. Dyspnea, Edema, Lt Headedness, Other Gastrointestinal: Nausea, Vomiting, Abdominal Pain, Diarrhea, Constipation; No: Melena, Hematochezia, Other Genitourinary: No Dysuria, No Frequency, No Incontinence, No Hematuria, No Retention, No Other Musculoskeletal: No: other, neck pain, shoulder pain, arm pain, back pain, hand pain, leg pain, foot pain Skin: No: Rash, Lesions, Jaundice, Bruising, Other Neurological: No: Weakness, Numbness, Incoordination, Change in speech, Confusion, Seizures, Other Allergies: Coded Allergies: Diphenhydramine (Verified Allergy, Unknown, 02/10/20) Penicillins (Verified Allergy, Unknown, 02/10/20) Medications Current Medications Medications Dose Ordered Sig/Ragini Route Start Time Stop Time Status Last Admin Dose Admin Sodium Chloride 1,000 ml @ 100 mls/hr Q10H IV 09/10/24 22:00 09/10/24 22:00 100 MLS/HR Docusate Sodium 100 mg BIDPRN PRN PO 09/10/24 22:00 Acetaminophen 650 mg Q6HP PRN PO 09/10/24 22:00 Acetaminophen/ Hydrocodone Bitart 1 tab Q4HP PRN PO 09/10/24 22:00 09/10/24 22:55 1 TAB Ondansetron HCl 4 mg Q4HP PRN IV 09/10/24 22:00 Morphine Sulfate 2 mg Q4HPRN PRN IV 09/10/24 22:00 Nitroglycerin 0.4 mg Q5MINP PRN SL 09/10/24 22:00 Morphine Sulfate 2 mg Q30M PRN IV 09/10/24 22:00 Diagnostic Test (Pha) 1 strip ACHS 09/10/24 22:00 09/10/24 22:00 1 STRIP Insulin Human Regular HS SC 09/10/24 22:00 09/10/24 22:27 3 UNITS Insulin Human Regular AC SC 09/11/24 07:00 Dextrose 50 ml UD PRN IV 09/10/24 22:00 Pantoprazole Sodium 40 mg DAILY IV 09/11/24 10:00 Exam Vital Signs Vital Signs Date Time Temp Pulse Resp B/P (MAP) Pulse Ox O2 Delivery O2 Flow Rate FiO2 09/11/24 00:02 81 20 124/65 (84) 100 09/10/24 20:06 Room Air* 0 21 21 09/10/24 20:01 98.3 98.3 General Appearance: Alert, Oriented X3, Cooperative, mild distress HEENT: Atraumatic, PERRLA, EOMI Respiratory: Clear to auscultation, Normal air movement Cardiovascular: Regular rate, Normal S1, Normal S2 Abdominal: Soft, No tenderness Extremities: No clubbing, No cyanosis, No edema Skin: No breakdown, No significant lesion Neuro: Normal gait, Normal speech, Strength at 5/5 X4 ext Psych/Mental Status: Mental status NL, Mood NL Labs/Xrays Labs Test 09/10/24 22:23 09/10/24 18:13 09/10/24 17:02 Range/Units POC Glucose 184 H 70-106 mg/dl White Blood Count 6.6 4.4-10.8 10^3/uL Red Blood Count 4.74 4.0-5.20 10^6/uL Hemoglobin 8.2 L 12.2-16.2 g/dL Hematocrit 28.7 L 36.0-46.0 % Mean Corpuscular Volume 60.6 L 80.0-100.0 fL Mean Corpuscular Hemoglobin 17.3 L 28.0-32.0 pg Mean Corpuscular Hemoglobin Concent 28.6 L 32.0-36.0 g/dL Red Cell Distribution Width 19.5 H 11.8-14.3 % Platelet Count 293 140-450 10^3/uL Mean Platelet Volume 8.5 6.9-10.8 fL Neutrophils (%) (Auto) 63.9 37.0-80.0 % Lymphocytes (%) (Auto) 27.2 10.0-50.0 % Monocytes (%) (Auto) 6.6 0.0-12.0 % Eosinophils (%) (Auto) 1.6 0.0-7.0 % Basophils (%) (Auto) 0.7 0.0-2.0 % Neutrophils # (Auto) 4.2 1.6-8.6 10 ^3/uL Lymphocytes # (Auto) 1.8 0.4-5.4 10 ^3/uL Monocytes # (Auto) 0.4 0-1.3 10 ^3/uL Eosinophils # (Auto) 0.1 0-0.8 10 ^3/uL Basophils # (Auto) 0 0-0.2 10 ^3/uL Nucleated Red Blood Cells 0.1 % Platelet Estimate Adequate Hypochromasia (manual) Marked Anisocytosis (manual) Slight Microcytosis Marked Sodium Level 137 136-145 mmol/L Potassium Level 4.1 3.5-5.1 mmol/L Chloride Level 110 H 98-107 mmol/L Carbon Dioxide Level 19 L 20-31 mmol/L Anion Gap 8 5-15 Blood Urea Nitrogen 12 9-23 mg/dL Creatinine 0.73 0.550-1.02 mg/dL Glomerular Filtration Rate Calc 102 >90 mL/min BUN/Creatinine Ratio 16.4 10.0-20.0 Serum Glucose 268 H 74-106 mg/dL Calcium Level 9.2 8.7-10.4 mg/dL Total Bilirubin 0.8 0.2-1.0 mg/dL Aspartate Amino Transferase (AST) 27 13-40 U/L Alanine Aminotransferase (ALT) 40 7-40 U/L Alkaline Phosphatase 158 H 46-116 U/L Total Protein 6.9 5.7-8.2 g/dL Albumin 4.6 3.2-4.8 g/dL Lipase 64 H 12-53 U/L Beta HCG, Quantitative 0.8 L 1.5-4.2 mIU/mL Assessment/Plan Assessment/Plan Dark stool rule out GI bleed Anemia Elevated lipase level T2DM with hyperglycemia Metabolic acidosis Plan Admit telemetry Consult gastroenterology. Occult Stool rule out GI bleed. IVF. Clear liquid diet. Blood glucose checks ACHS with regular insulin sliding scale coverage for optimal glycemic management. Monitor BMP. GI prophylaxis - Protonix / DVT prophylaxis - SCDs Plan discussed with: Patient My Orders Orders - CHEKO DUBON NP Procedure Category Date Status Time Admit ADMIT 09/10/24 Transmitted 21:52 Code Status CODE 09/10/24 Transmitted 21:52 Vital Signs CHRIS 09/10/24 In Process 21:52 Review Orders With CHRIS 09/10/24 In Process Adm. 21:52 Sodium Chloride 0.9% PHA 09/10/24 In Process 22:00 Oxygen By Face Mask RT 09/10/24 Transmitted 21:52 Docusate Sodium PHA 09/10/24 In Process Capsule (Colace 22:00 Acetaminophen Tablet PHA 09/10/24 In Process (Tylenol Tablet) 22:00 Notify Of Changes CHRIS 09/10/24 In Process From Base 21:52 Advance Directive CHRIS 09/10/24 In Process 21:52 Basic Metabolic Panel LAB 09/11/24 Logged 05:00 Basic Metabolic Panel LAB 09/12/24 Verified 05:00 Basic Metabolic Panel LAB 09/13/24 Verified 05:00 Basic Metabolic Panel LAB 09/14/24 Verified 05:00 Basic Metabolic Panel LAB 09/15/24 Verified 05:00 Complete Blood Count LAB 09/11/24 Logged 05:00 Complete Blood Count LAB 09/12/24 Verified 05:00 Complete Blood Count LAB 09/13/24 Verified 05:00 Complete Blood Count LAB 09/14/24 Verified 05:00 Complete Blood Count LAB 09/15/24 Verified 05:00 Urine Bacterial STEVEN 09/10/24 Logged Culture 21:52 Patient Condition ORDERS 09/10/24 Transmitted 21:52 Allergies CHRIS 09/10/24 In Process 21:52 Hydrocodone-Acet PHA 09/10/24 In Process 5/325mg Tab ([place] 22:00 Ondansetron Hcl PHA 09/10/24 In Process (Zofran) 22:00 Morphine Sulfate PHA 09/10/24 In Process Injection 22:00 Sequential CHRIS 09/10/24 In Process Compression Device Nitroglycerin PHA 09/10/24 In Process Sublingual (Ntrostat 22:00 Morphine Sulfate PHA 09/10/24 In Process Injection 22:00 Stat Ekg For Chest CHRIS 09/10/24 In Process Pain 21:52 Notify Of Changes CHRIS 09/10/24 In Process From Base 21:52 [employer] Representative For CHRIS 09/10/24 In Process 24 Hours 21:52 Emergency Dysrhythmia CHRIS 09/10/24 In Process Protocol 21:52 Rhythm Strips Once CHRIS 09/10/24 In Process Every Shift 21:52 Oxygen By Nasal RT 09/10/24 Transmitted Cannula 21:52 Glucose Blood PHA 09/10/24 In Process (Accu-Chek Comfort 22:00 Insulin R (Human) PHA 09/10/24 In Process (Insulin R) 22:00 Insulin R (Human) PHA 09/11/24 In Process (Insulin R) 07:00 Dextrose 50% Syringe PHA 09/10/24 In Process 22:00 Gastric Occult Blood LAB 09/10/24 Logged 21:52 * Gi Dvh Sql Programmer Analyst CONS 09/10/24 Transmitted 21:52 Clear Liq Diet DIET 09/11/24 Transmitted Breakfast Communication Order ORDERS 09/10/24 Transmitted 21:52 Communication Order ORDERS 09/10/24 Transmitted 21:52 Hemoglobin A1c LAB 09/11/24 Logged 04:00 Pantoprazole PHA 09/11/24 In Process (Protonix) 10:00 Lactulose Oral PHA 09/11/24 Transmitted 00:45 Date of Service: Sep 11, 2024 Billing Provider: MERYL WALKER MD Common Visit Codes: NOT BILLABLE MERYL WALKER MD 09/11/24 1721: Review of Systems Allergies: Coded Allergies: Diphenhydramine (Verified Allergy, Unknown, 02/10/20) Penicillins (Verified Allergy, Unknown, 02/10/20) Additional Comments Additional Comments Additional Comments 49-year-old female with a known history of insulin-dependent diabetes mellitus, hypertension, dyslipidemia who initially presented to the hospital with a nausea vomiting diarrhea found to have 1. Uncontrolled hyperglycemia in the setting of diabetes mellitus type 2 insulin dependent 2. Mild metabolic acidosis improved 3. Chest pain rule out AL 4. Hypertension 5-dyslipidemia 6. Microcytic anemia -continue insulin as needed, 2D echo cardiology consultation -GI consultation for possible EGD CHEKO DUBON NP Sep 11, 2024 00:54 MERYL WALKER MD Sep 11, 2024 17:21
[2024-09-11] MEDS ORDERED: TRAZ-227 PO (04:18)
[2024-09-11] MEDS ORDERED: ROPI1TAB78 PO (04:18)
[2024-09-11] MEDS ORDERED: OMEP20TA PO (04:26)
[2024-09-11] MEDS ORDERED: TRAM50TA2 PO (04:26)
[2024-09-11] MEDS ORDERED: PANT40TA2 PO (04:26)
[2024-09-11] MEDS ORDERED: ATOR10TA PO (04:26)
[2024-09-11] MEDS: InsuLIN REG 1unit/0.01ml Soln (100units/ml) SC SCH (06:40)
[2024-09-11 07:09] LABS: Anion Gap 9 (5-15); Carbon Dioxide 21 mmol/L (20-31); Chloride 111 mmol/L (98-107); Potassium 3.8 mmol/L (3.5-5.1); Sodium 141 mmol/L (136-145)
[2024-09-11 07:15] LABS: BUN/Creatinine Ratio 21.4 (10.0-20.0); Blood Urea Nitrogen 12 mg/dL (9-23); Glucose 136 mg/dL (74-106)
[2024-09-11] MEDS: PANTOPRAZOLE 40 MG/10 ML VIAL INJ IV SCH (08:50)
[2024-09-11] MEDS: DOCUSATE SOD 100 MG CAP PO PRN (08:50)
[2024-09-11 09:41] LABS: Basophils # (auto) 0 10 ^3/uL (0-0.2); Eosinophils # (auto) 0.2 10 ^3/uL (0-0.8); Eosinophils % (auto) 3.6 % (0.0-7.0); Hemoglobin 8.4 g/dL (12.2-16.2); Lymphocytes # (auto) 1.9 10 ^3/uL (0.4-5.4); White Blood Cell 5.6 10^3/uL (4.4-10.8)
[2024-09-11 09:44] LABS: Basophils % (auto) 0.4 % (0.0-2.0); Lymphocytes % (auto) 33.8 % (10.0-50.0); Mean Corpuscular Hemoglobin 17.5 pg (28.0-32.0); Mean Corpuscular Volume 60.5 fL (80.0-100.0); Monocytes # (auto) 0.5 10 ^3/uL (0-1.3); Monocytes % (auto) 8.1 % (0.0-12.0); Neutrophils # (auto) 3.1 10 ^3/uL (1.6-8.6); Neutrophils % (auto) 54.1 % (37.0-80.0); Nucleated Red Blood Cells % 0.1 %; Platelet Count (auto) 278 10^3/uL (140-450); Red Cell Distribution Width 19.8 % (11.8-14.3)
[2024-09-11 11:03] LABS: Urine Bacteria None Seen /hpf (None Seen)
[2024-09-11 11:15] LABS: Urine Blood Negative /uL (Negative); Urine Clarity Clear (Clear); Urine Color Light-Yellow (Yellow); Urine Protein, UAD Negative (Negative); Urine Specific Gravity 1.038 (1.001-1.035); Urine Urobilinogen Normal (Negative); Urine WBC <1 /hpf (0 - 5)
[2024-09-11] MEDS: ONDANSETRON HCL 4 MG/2 ML VIAL IV PRN (11:20)
[2024-09-11] MEDS: MORPHINE SULFATE INJ 2 MG/ml SYRG IV PRN (11:34)
--- NOTE | 2024-09-11 14:40 | DVHINCON2 ---
Date of service: Sep 11, 2024 Referring Physician Lseli Reason for Consultation Possible GI bleed History of Present Illness Patient is a 49-year-old female admitted with abdominal pain, dark stools, history of peptic ulcer disease, history of diabetes, anemia, with a prior history of endoscopy in December of this year in September of last year. Patient has no history of colonoscopy. She has been having abdominal pain and loose stools. Patient also states that her dark stool may be due to Pepto-Bismol. She is currently having chest pain and shortness of breath with cough. Patient does take NSAIDs. Past Medical History As above Past Surgical History Cholecystectomy Tubal ligation Family History: Patient reports no known family medical history. Family History No gastrointestinal diseases or malignancies Social History No significant tobacco alcohol or recreation drug Allergies: Coded Allergies: Diphenhydramine (Verified Allergy, Unknown, 02/10/20) Penicillins (Verified Allergy, Unknown, 02/10/20) Home Meds Active Scripts Naproxen (NAPROSYN TABLET) 500 Mg Tb, 1 TAB PO BID for 5 Days, #10 TAB 1 Refill Prov:SRAVANTHI TSE 07/03/24 Hydrocodone-Acetaminophen (Hydrocodone Bitartrate/AC 5-325 mg) 1 Tab Tab, 1 TAB PO Q6HPRN PRN, #20 TAB Prov:YOVANY AREVALO 06/04/24 Prednisone (Prednisone) 20 Mg Tab, 20 MG PO BID for 5 Days, #10 TAB 0 Refills Prov:KHANH GARCIAS 11/03/23 Azithromycin (Azithromycin) 250 Mg Tab, 250 MG PO DAILY MDD 500 for 5 Days, #6 TAB 0 Refills 2 TABLETS ORALLY ON DAY ONE, THEN 1 TABLET ORALLY DAILY FOR 4 DAYS Prov:KHANH GARCIAS 11/03/23 Ondansetron (Zofran) 4 Mg Tab, 1 TAB PO Q8HR PRN, #15 TAB 0 Refills Prov:MATEUSZ ROCA 04/09/23 Hydrocodone-Acetaminophen (Hydrocodone Bitartrate/AC 5-325 mg) 1 Tab Tab, 1 TAB PO Q4HPRN PRN, #15 TAB 0 Refills Prov:MATEUSZ ROCA 04/09/23 Meclizine Hcl (Meclizine Hcl) 25 Mg Tab, 25 MG PO TIDPRN PRN for 3 Days, #10 MG Prov:JO ANN ROBERTS DO 07/11/22 Ondansetron (Zofran) 4 Mg Tab, 4 MG PO Q8HPRN PRN for 3 Days, #10 MG Prov:JO ANN ROBERTS DO 07/11/22 Ondansetron (Zofran) 4 Mg Tab, 4 MG PO Q8HPRN PRN for 3 Days, #10 MG Prov:JO ANN ROBERTS DO 04/30/22 Reported Medications Tramadol Hcl (Tramadol Hcl) 50 Mg Tab, 50 MG PO Q6HP, MG 09/11/24 Pantoprazole Sodium Sesquihydr (Protonix) 40 Mg Tab, 40 MG PO DAILY, #30 TAB 09/11/24 Atorvastatin Calcium (Lipitor) 10 Mg Tab, 10 MG PO DAILY@DINNER, TAB 09/11/24 Omeprazole (Gnp Omeprazole) 20 Mg Tab, 40 MG PO BIDAC, TAB 09/11/24 Ropinirole Hydrochloride (Ropinirole Hcl) 1 Mg Tab, 1 MG PO HS, TAB 09/11/24 Trazodone Hcl (Trazodone Hcl) 50 Mg Tab, 50 MG PO HS, MG 09/11/24 Current Medications Current Medications Medications (Trade) Dose Ordered Sig/Ragini Route PRN Reason Start Time Stop Time Status Last Admin Sodium Chloride 1,000 ml @ 100 mls/hr Q10H IV 09/10/24 22:00 09/11/24 06:56 Docusate Sodium (Colace Capsule) 100 mg BIDPRN PRN PO FOR CONSTIPATION 09/10/24 22:00 09/11/24 08:50 Acetaminophen (Tylenol Tablet) 650 mg Q6HP PRN PO PAIN SCALE 1-3 OR TEMP>100.4 09/10/24 22:00 Acetaminophen/ Hydrocodone Bitart ([place] 5/325MG Tab) 1 tab Q4HP PRN PO MODERATE PAIN (4-6 PAIN SCALE) 09/10/24 22:00 09/11/24 08:49 Ondansetron HCl (Zofran) 4 mg Q4HP PRN IV NAUSEA / VOMITING 09/10/24 22:00 09/11/24 11:20 Morphine Sulfate 2 mg Q4HPRN PRN IV SEVERE PAIN (7-10 PAIN SCALE) 09/10/24 22:00 Nitroglycerin (Ntrostat Sublingual) 0.4 mg Q5MINP PRN SL FOR CHEST PAIN 09/10/24 22:00 Morphine Sulfate 2 mg Q30M PRN IV FOR CHEST PAIN 09/10/24 22:00 09/11/24 13:58 Diagnostic Test (Pha) (Accu-Chek Comfort Curve T) 1 strip ACHS 09/10/24 22:00 09/11/24 12:22 Insulin Human Regular (InsuLIN R) HS SC 09/10/24 22:00 09/10/24 22:27 Insulin Human Regular (InsuLIN R) AC SC 09/11/24 07:00 09/11/24 12:22 Dextrose 50 ml UD PRN IV Blood Sugar LESS THAN 60 09/10/24 22:00 Pantoprazole Sodium (Protonix) 40 mg DAILY IV 09/11/24 10:00 09/11/24 08:50 Lactulose 30 ml BIDPRN PRN PO FOR CONSTIPATION 09/11/24 00:45 Review of Systems 12 point review of systems negative other than HPI Vital Signs Vital Signs Date Time Temp Pulse Resp B/P (MAP) Pulse Ox O2 Delivery O2 Flow Rate FiO2 09/11/24 13:58 78 17 127/86 09/11/24 09:00 98.0 96 98.0 09/11/24 01:34 Room Air* 0 21 Physical Exam Alert and oriented x4 Normocephalic atraumatic EOMI, PERRLA, oropharynx clear Regular rate and rhythm Soft nontender nondistended abdomen No clubbing cyanosis or edema Labs/Diagnostic Data Labs Test 09/11/24 11:26 09/11/24 09:04 09/11/24 09:00 09/11/24 06:13 Range/Units POC Glucose 142 H 70-106 mg/dl White Blood Count 5.6 4.4-10.8 10^3/uL Red Blood Count 4.80 4.0-5.20 10^6/uL Hemoglobin 8.4 L 12.2-16.2 g/dL Hematocrit 29.0 L 36.0-46.0 % Mean Corpuscular Volume 60.5 L 80.0-100.0 fL Mean Corpuscular Hemoglobin 17.5 L 28.0-32.0 pg Mean Corpuscular Hemoglobin Concent 29.0 L 32.0-36.0 g/dL Red Cell Distribution Width 19.8 H 11.8-14.3 % Platelet Count 278 140-450 10^3/uL Mean Platelet Volume 8.5 6.9-10.8 fL Neutrophils (%) (Auto) 54.1 37.0-80.0 % Lymphocytes (%) (Auto) 33.8 10.0-50.0 % Monocytes (%) (Auto) 8.1 0.0-12.0 % Eosinophils (%) (Auto) 3.6 0.0-7.0 % Basophils (%) (Auto) 0.4 0.0-2.0 % Neutrophils # (Auto) 3.1 1.6-8.6 10 ^3/uL Lymphocytes # (Auto) 1.9 0.4-5.4 10 ^3/uL Monocytes # (Auto) 0.5 0-1.3 10 ^3/uL Eosinophils # (Auto) 0.2 0-0.8 10 ^3/uL Basophils # (Auto) 0 0-0.2 10 ^3/uL Nucleated Red Blood Cells 0.1 % Hemoglobin A1c 7.0 H <5.7 % A1C Urine Color Light-yellow Yellow Urine Clarity Clear Clear Urine pH 6.0 5.0-9.0 Urine Specific [place] 1.038 H 1.001-1.035 Urine Protein Negative Negative Urine Ketones Negative Negative Urine Blood Negative Negative /uL Urine Nitrite Negative Negative Urine Bilirubin Negative Negative Urine Urobilinogen Normal Negative mg/dL Urine Leukocyte Esterase Negative Negative /uL Urine RBC <1 0 - 4 /hpf Urine WBC <1 0 - 5 /hpf Urine Squamous Epithelial Cells Few <5 /hpf Urine Bacteria None seen None Seen /hpf Urine Glucose 4+ H Normal mg/dL Sodium Level 141 136-145 mmol/L Potassium Level 3.8 3.5-5.1 mmol/L Chloride Level 111 H 98-107 mmol/L Carbon Dioxide Level 21 20-31 mmol/L Anion Gap 9 5-15 Blood Urea Nitrogen 12 9-23 mg/dL Creatinine 0.56 0.550-1.02 mg/dL Glomerular Filtration Rate Calc 113 >90 mL/min BUN/Creatinine Ratio 21.4 H 10.0-20.0 Serum Glucose 136 H 74-106 mg/dL Calcium Level 9.0 8.7-10.4 mg/dL Test 09/10/24 18:13 09/10/24 17:02 Range/Units Platelet Estimate Adequate Hypochromasia (manual) Marked Anisocytosis (manual) Slight Microcytosis Marked Total Bilirubin 0.8 0.2-1.0 mg/dL Aspartate Amino Transferase (AST) 27 13-40 U/L Alanine Aminotransferase (ALT) 40 7-40 U/L Alkaline Phosphatase 158 H 46-116 U/L Total Protein 6.9 5.7-8.2 g/dL Albumin 4.6 3.2-4.8 g/dL Lipase 64 H 12-53 U/L Beta HCG, Quantitative 0.8 L 1.5-4.2 mIU/mL CT scan of abdomen was normal Assessment 1. Abdominal pain 2. Anemia 3. History of peptic ulcer disease 4. Chest pain 5. Melena Patient is currently having chest pain and she states that she feels like somebody is pushing on her chest. It is associated with a cough and some shortness of breath Patient has microcytic anemia which may be due to GI bleed, she has a history of peptic ulcer disease but is downplaying her symptoms. She has no history of colonoscopy, other possibilities include no GI source of any Problems(with codes): (1) Anemia (2) Abdominal pain Plan/Recommendation 1. Cardiac workup as indicated 2. Continue Protonix 3. Follow H&H 4. Patient will need an EGD, once stabilized 5. Transfuse as needed Plan discussed with: Patient STEFANO HUTTON MD Sep 11, 2024 14:40
[2024-09-11] MEDS ORDERED: PROMETHAZINE-DM 5 ML ORAL SYRUP PO PRN (15:30)
[2024-09-11] MEDS: PROMETHAZINE-DM 5 ML ORAL SYRUP PO PRN (17:18)
[2024-09-12] VITALS (9 sets, daily range): BP systolic 105–149; BP diastolic 56–81; PULSE 75–107; RESP 16–18; TEMP 98–98.7; O2SAT 94–100
[2024-09-12 07:00] LABS: Chloride 108 mmol/L (98-107); Potassium 3.5 mmol/L (3.5-5.1); Sodium 140 mmol/L (136-145)
[2024-09-12 07:01] LABS: Anion Gap 9 (5-15); Calcium 8.9 mg/dL (8.7-10.4); Carbon Dioxide 23 mmol/L (20-31)
[2024-09-12 07:06] LABS: Blood Urea Nitrogen 6 mg/dL (9-23); Glucose 134 mg/dL (74-106)
[2024-09-12 07:11] LABS: Basophils # (auto) 0 10 ^3/uL (0-0.2); Basophils % (auto) 0.5 % (0.0-2.0); Eosinophils # (auto) 0.2 10 ^3/uL (0-0.8); Eosinophils % (auto) 2.8 % (0.0-7.0); Hematocrit 25.5 % (36.0-46.0); Hemoglobin 7.5 g/dL (12.2-16.2); Lymphocytes # (auto) 1.2 10 ^3/uL (0.4-5.4); Lymphocytes % (auto) 21.8 % (10.0-50.0); Mean Corpuscular Hemoglobin 17.3 pg (28.0-32.0); Mean Corpuscular Hgb Conc. 29.3 g/dL (32.0-36.0); Mean Corpuscular Volume 59.1 fL (80.0-100.0); Monocytes # (auto) 0.4 10 ^3/uL (0-1.3); Monocytes % (auto) 6.5 % (0.0-12.0); Neutrophils # (auto) 3.9 10 ^3/uL (1.6-8.6); Neutrophils % (auto) 68.4 % (37.0-80.0); Nucleated Red Blood Cells % 0.2 %; Platelet Count (auto) 264 10^3/uL (140-450); Red Blood Cells 4.33 10^6/uL (4.0-5.20); Red Cell Distribution Width 19.7 % (11.8-14.3); White Blood Cell 5.6 10^3/uL (4.4-10.8)
[2024-09-12 08:45] LABS: Hepatitis B Surface Antigen Negative (Negative)
[2024-09-12 09:18] LABS: Hepatitis C Antibody Positive (Negative)
[2024-09-12 09:19] LABS: Hypochromia Marked; Platelet Estimate Adequate
--- NOTE | 2024-09-12 14:16 | DVHPN2 ---
Subjective Overnight events noted. Patient denies any chest pain. Reviewed: Care Plan Changes from previous H/P or p: No Changes Eyes: No Pain, No Vision change, No Conjunctivae inflammation, No Eyelid inflammation, No Other, No Redness ENT: No Ear pain, No Ear discharge, No Nose pain, No Nose discharge, No Nose congestion, No Mouth pain, No Mouth swelling, No Throat pain, No Throat swelling, No Other Cardiovascular: No Chest Pain, No Palpitations, No Orthopnea, No Paroxysmal Noc. Dyspnea, No Edema, No Lt Headedness, No Other Respiratory: No Cough, No Dry, No Shortness of breath, No SOB with excertion, No Wheezing, No Hemoptysis, No Pleuritic Pain, No Sputum, No Other Gastrointestinal: Nausea, Vomiting, Abdominal Pain, Diarrhea, Constipation; No Melena, No Hematochezia, No Other Genitourinary: No Dysuria, No Frequency, No Incontinence, No Hematuria, No Retention, No Other Musculoskeletal: No other, No neck pain, No shoulder pain, No arm pain, No back pain, No hand pain, No leg pain, No foot pain Skin: No Rash, No Lesions, No Jaundice, No Bruising, No Other Objective Vitals Vital Signs Date Time Temp Pulse Resp B/P (MAP) Pulse Ox O2 Delivery O2 Flow Rate FiO2 09/12/24 09:11 98.2 101 16 113/65 (81) 94 98.2 09/12/24 08:10 Room Air* 0 21 Intake/Output Intake and Output 09/12/24 07:00 Intake Total 2170 ml Balance 2170 ml Intake Oral 2170 ml # Voids 6 Exam HEENT pupils are reactive Neck is supple CV is S1-S2 regular rate and rhythm Respiratory diminished breath sounds bases GI positive bowel sounds Extremity no edema [employer] no motor deficit Medications Current Medications Medications Dose Ordered Sig/Ragini Route Start Time Stop Time Status Last Admin Dose Admin Sodium Chloride 1,000 ml @ 100 mls/hr Q10H IV 09/10/24 22:00 09/12/24 14:00 100 MLS/HR Docusate Sodium 100 mg BIDPRN PRN PO 09/10/24 22:00 09/11/24 08:50 100 MG Acetaminophen 650 mg Q6HP PRN PO 09/10/24 22:00 Acetaminophen/ Hydrocodone Bitart 1 tab Q4HP PRN PO 09/10/24 22:00 09/12/24 11:02 1 TAB Ondansetron HCl 4 mg Q4HP PRN IV 09/10/24 22:00 09/11/24 18:20 4 MG Morphine Sulfate 2 mg Q4HPRN PRN IV 09/10/24 22:00 Nitroglycerin 0.4 mg Q5MINP PRN SL 09/10/24 22:00 Morphine Sulfate 2 mg Q30M PRN IV 09/10/24 22:00 09/11/24 13:58 2 MG Diagnostic Test (Pha) 1 strip ACHS 09/10/24 22:00 09/12/24 11:59 1 STRIP Insulin Human Regular HS SC 09/10/24 22:00 09/10/24 22:27 3 UNITS Insulin Human Regular AC SC 09/11/24 07:00 09/12/24 06:15 2 UNITS Dextrose 50 ml UD PRN IV 09/10/24 22:00 Pantoprazole Sodium 40 mg DAILY IV 09/11/24 10:00 09/12/24 11:02 40 MG Lactulose 30 ml BIDPRN PRN PO 09/11/24 00:45 Promethazine HCl/ Dextromethorphan 5 ml Q4HP PRN PO 09/11/24 17:15 09/11/24 17:18 5 ML Laboratory Results Laboratory Tests 09/12/24 06:04 Chemistry Test 09/12/24 06:04 Calcium Level 8.9 mg/dL (8.7-10.4) Urinalysis Test 09/11/24 09:00 Urine Color Light-yellow (Yellow) Urine Clarity Clear (Clear) Urine pH 6.0 (5.0-9.0) Urine Specific [employer] 1.038 (1.001-1.035) Urine Protein Negative (Negative) Urine Ketones Negative (Negative) Urine Blood Negative /uL (Negative) Urine Nitrite Negative (Negative) Urine Bilirubin Negative (Negative) Urine Urobilinogen Normal mg/dL (Negative) Urine Leukocyte Esterase Negative /uL (Negative) Urine RBC <1 /hpf (0 - 4) Urine WBC <1 /hpf (0 - 5) Urine Squamous Epithelial Cells Few /hpf (<5) Urine Bacteria None seen /hpf (None Seen) Urine Glucose 4+ mg/dL (Normal) H Microbiology Microbiology Date/Time Source Procedure Growth Status 09/11/24 09:00 Urine - Midstream Clean Catch Urine Culture - Preliminary Resulted Assessment/Plan Assessment/Plan 49-year-old female with a known history of insulin-dependent diabetes mellitus, hypertension, dyslipidemia who initially presented to the hospital with a nausea vomiting diarrhea found to have 1. Uncontrolled hyperglycemia in the setting of diabetes mellitus type 2 insulin dependent 2. Mild metabolic acidosis improved 3. Chest pain rule out [place] 4. Hypertension 5-dyslipidemia 6. Microcytic anemia -2D echo, cardiology consultation, continue current management Follow up GI for possible EGD. Plan discussed with: Patient My Orders Orders - MERYL WALKER MD Procedure Category Date Status Time * Cardiology Consult CONS 09/11/24 Transmitted 14:35 Promethazine-Dm PHA 09/11/24 In Process (Phenergan-Dm) 17:15 Date of Service: Sep 12, 2024 Billing Provider: MERYL WALKER MD Common Visit Codes: NOT BILLABLE MERYL WALKER MD Sep 12, 2024 14:16
[2024-09-12 20:04] LABS: % Iron Saturation 4.3 % (15-50)
[2024-09-12 20:35] LABS: Magnesium 2.1 mg/dL (1.6-2.6)
[2024-09-12 20:37] LABS: Phosphorus 3.4 mg/dL (2.4-5.1)
[2024-09-12] MEDS ORDERED: LACTULOSE 20Gm/30ML SOLN PO SCH (22:00)
[2024-09-12] MEDS ORDERED: LACTULOSE 20Gm/30ML SOLN PO PRN (22:00)
[2024-09-13] VITALS (10 sets, daily range): BP systolic 111–133; BP diastolic 60–70; PULSE 69–102; RESP 13–19; TEMP 97.9–98.8; O2SAT 95–100
[2024-09-13] MEDS: NITROGLYCERIN 0.4 MG SL TAB SL PRN (04:22)
[2024-09-13] MEDS: KETOROLAC TROMETH 30 MG/ML 1ML VIAL IV ONE (04:55)
[2024-09-13 06:50] LABS: Anion Gap 10 (5-15); Carbon Dioxide 26 mmol/L (20-31); Chloride 106 mmol/L (98-107); Potassium 3.6 mmol/L (3.5-5.1); Sodium 142 mmol/L (136-145)
[2024-09-13 06:51] LABS: INR 0.97 (0.9-1.15); Partial Thromboplastin Time 25.1 SEC (24.5-34.5); Prothrombin Time 10.3 sec (9.3-11.8)
[2024-09-13 06:56] LABS: BUN/Creatinine Ratio 13.8 (10.0-20.0); Blood Urea Nitrogen 9 mg/dL (9-23); Glucose 183 mg/dL (74-106)
[2024-09-13 07:22] LABS: Hematocrit 27.7 % (36.0-46.0); Hemoglobin 8.3 g/dL (12.2-16.2); Mean Corpuscular Hemoglobin 17.7 pg (28.0-32.0); Mean Corpuscular Hgb Conc. 29.9 g/dL (32.0-36.0); Mean Corpuscular Volume 59.3 fL (80.0-100.0); Platelet Count (auto) 318 10^3/uL (140-450); Red Blood Cells 4.66 10^6/uL (4.0-5.20); Red Cell Distribution Width 19.4 % (11.8-14.3); White Blood Cell 7.2 10^3/uL (4.4-10.8)
[2024-09-13 07:24] LABS: Band Neutrophils % (manual) 0; Basophils % (manual) 0 (0.0-2.0); Blast Cells 0; Metamyelocytes % 0; Myelocytes % 0; Promyelocytes % 0; Reactive Lymphocytes 0
[2024-09-13 09:02] LABS: Eosinophils % (manual) 2 (0-7); Lymphocytes % (manual) 30 (10.0-50.0); Monocytes % (manual) 4 (0-12); Platelet Estimate Adequate
[2024-09-13] MEDS ORDERED: SODIUM CHLORIDE LOCK 10 ML ONE (10:29)
[2024-09-13] MEDS ORDERED: LIDOCAINE VISCOUS 2% 15ML UD ONE (10:29)
[2024-09-13] MEDS ORDERED: diphenhdrAMINE HCL 50 MG/1 ML VL ONE (10:30)
[2024-09-13] MEDS: fentaNYL CITRATE 100 MCG/2 ML VL ONE (12:04)
[2024-09-13] MEDS: MIDAZOLAM HCL 5 MG/ML-1ML VIAL ONE (12:04)
--- NOTE | 2024-09-13 12:18 | DVHOP2 ---
Operative Report DATE OF OPERATION: 09/13/24 PROCEDURE: Upper Endoscopy with biopsy. PREOPERATIVE INDICATION: The patient is a 49 -year-old female undergoing endoscopy for nausea vomiting and dark colored stools POSTOPERATIVE DIAGNOSES: 1. [id number] antral gastritis with multiple pre-pyloric antral gastric tiny erosions and ulcers 2. Otherwise normal examination up to the 2nd and 3rd part of the duodenum with no active bleeding PROCEDURE PERFORMED BY: Sherron Rodriguez GI NURSE: Carmelina SCOPE: Olympus videoendoscope. ASA CLASS: 2. PREOPERATIVE MEDICATIONS: Versed 3 mg, Fentanyl 100 mcg, Benadryl 0 mg I administered moderate sedation throughout this _8_ minutes procedure. An independent trained observer pushed medications at my direction, and monitored the patient's level of consciousness and physiological status throughout. PROCEDURE IN DETAIL: After obtaining an informed consent, the patient was placed on left lateral decubitus position. The patient was then sedated with the above medications. A bite block was placed between her teeth. The endoscope was then passed through the oropharynx, into the esophagus, and through the stomach and pylorus up to the second and third part of the duodenum. The endoscope was then withdrawn. The 2nd and 3rd part of the duodenum and the duodenal bulb were normal. Duodenal biopsies were obtained. The pre-pyloric area and antrum showed [id number] gastritis with multiple tiny antral gastric erosions and ulcers On retroflexion the fundus cardia and angularis were normal. Gastric biopsies were obtained. There was no fresh or old blood in the stomach. The endoscope was then withdrawn into the distal esophagus where she had a slightly irregular squamocolumnar junction but no significant erosive esophagitis The remaining distal and proximal esophagus and oropharynx were unremarkable The patient tolerated the procedure well without difficulty. COMPLICATIONS : None SPECIMENS: Duodenal biopsy Gastric biopsy DISPOSITION: Transfer back to the floor Stable PLAN: 1. Await for biopsy result 2. Will place pt on Protonix 40 mg bid 3. Carafate 1 g p.o. twice a day 4. DC aspirin NSAIDs smoking alcohol 5. Resume soft mechanical diet advance as tolerated 6. Outpatient follow up with GI Services to discuss outpatient elective colonoscopy SHERRON RODRIGUEZ MD Sep 13, 2024 12:17
--- NOTE | 2024-09-13 16:05 | DVHSR ---
APPROVED REPORT EXAM: Two-dimensional and M-mode echocardiogram with Doppler and color Doppler. INDICATION Tachycardia RISK FACTORS Height: 5'7", Weight: 111 DIMENSIONS LVDd4.9 (3.8-5.7cm)LA (2D)3.9 (1.9-4.0cm)Aortic Root (2.0-3.7cm) LVDs3.3 (2.5-4.0cm)LA (MM) (1.9-4.0cm)Aortic Cusp Exc (1.5-2.0cm) EF (%) 60.0 (55-70%)Rt. Atrium3.3 (1.9-4.0cm)Asc. Aorta cm Mitral Valve MitralMitral Stenosis E/A ratio0.02D MVAcm2 LEFT VENTRICLE The left ventricle is normal size. There is normal left ventricular wall thickness. The left ventricle is normal in structure and function. The Ejection Fraction is 60-65%. No regional wall motion abnormalities noted. RIGHT VENTRICLE The right ventricle is normal size. There is normal right ventricular wall thickness. The right ventricular systolic function is normal. ATRIA The left atrium size is normal. The right atrium size is normal. The interatrial septum is intact with no evidence for an atrial septal defect. MITRAL VALVE The mitral valve is normal in structure and function. There is no evidence of mitral valve prolapse. There is no mitral valve stenosis. There is no mitral valve regurgitation noted. PULMONIC VALVE The pulmonary valve is normal in structure and function. There is no pulmonic valvular regurgitation. There is no pulmonic valvular stenosis. TRICUSPID VALVE The tricuspid valve is normal in structure and function. There is no tricuspid valve regurgitation noted. There is no tricuspid valve prolapse or vegetation. There is no tricuspid valve stenosis. AORTIC VALVE The aortic valve is normal in structure and function. No aortic regurgitation is present. There is no aortic valvular stenosis. There is no aortic valvular vegetation. GREAT VESSELS The aortic root is normal in size. Other Information Quality : Technically LimitedRhythm : Technically limited study due to body habitus and patient position. Conclusion The left ventricle is normal size. There is normal left ventricular wall thickness. The left ventricle is normal in structure and function. The Ejection Fraction is 60-65%. There is no gross valvular pathology. There is no pericardial effusion.
[2024-09-13] MEDS: SUCRALFATE 1 GM/10 ML ORAL SUSP PO SCH (17:08)
[2024-09-13] MEDS: PANTOPRAZOLE 40 MG TAB PO SCH (17:08)
[2024-09-13] MEDS ORDERED: PANT40TA2 PO (19:02)
[2024-09-13] MEDS ORDERED: SUCR1SUS26 PO (19:02)
--- NOTE | 2024-09-13 19:04 | DVHDS2 ---
Discharge Summary Date of Admission Sep 10, 2024 at 21:52 Date of Discharge: Sep 13, 2024 Labs/Diagnostic Data: Laboratory Results Test 09/13/24 16:51 09/13/24 06:19 09/12/24 18:49 09/12/24 06:04 POC Glucose 127 mg/dl (70-106) White Blood Count 7.2 10^3/uL (4.4-10.8) Red Blood Count 4.66 10^6/uL (4.0-5.20) Hemoglobin 8.3 g/dL (12.2-16.2) Hematocrit 27.7 % (36.0-46.0) Mean Corpuscular Volume 59.3 fL (80.0-100.0) Mean Corpuscular Hemoglobin 17.7 pg (28.0-32.0) Mean Corpuscular Hemoglobin Concent 29.9 g/dL (32.0-36.0) Red Cell Distribution Width 19.4 % (11.8-14.3) Platelet Count 318 10^3/uL (140-450) Mean Platelet Volume 8.6 fL (6.9-10.8) Neutrophils (%) (Auto) % (37.0-80.0) Lymphocytes (%) (Auto) % (10.0-50.0) Monocytes (%) (Auto) % (0.0-12.0) Basophils (%) (Auto) % (0.0-2.0) Neutrophils # (Auto) 10 ^3/uL (1.6-8.6) Lymphocytes # (Auto) 10 ^3/uL (0.4-5.4) Monocytes # (Auto) 10 ^3/uL (0-1.3) Differential Total Cells Counted 100.0 (100) Neutrophils % (Manual) 64 (37.0-80.0) Band Neutrophils % (Manual) 0 Lymphocytes % (Manual) 30 (10.0-50.0) Monocytes % (Manual) 4 (0-12) Eosinophils % (Manual) 2 (0-7) Basophils % (Manual) 0 (0.0-2.0) Metamyelocytes % (manual) 0 Myelocytes % (Manual) 0 Promyelocytes % (Manual) 0 Blast Cells % (Manual) 0 Reactive Lymphocytes 0 Platelet Estimate Adequate Prothrombin Time 10.3 sec (9.3-11.8) Prothrombin Time INR 0.97 (0.9-1.15) Activated Partial Thromboplast Time 25.1 SEC (24.5-34.5) Sodium Level 142 mmol/L (136-145) Potassium Level 3.6 mmol/L (3.5-5.1) Chloride Level 106 mmol/L (98-107) Carbon Dioxide Level 26 mmol/L (20-31) Anion Gap 10 (5-15) Blood Urea Nitrogen 9 mg/dL (9-23) Creatinine 0.65 mg/dL (0.550-1.02) Glomerular Filtration Rate Calc 109 mL/min (>90) BUN/Creatinine Ratio 13.8 (10.0-20.0) Serum Glucose 183 mg/dL (74-106) Calcium Level 9.0 mg/dL (8.7-10.4) Ammonia 33 umol/L (11-32) Phosphorus Level 3.4 mg/dL (2.4-5.1) Magnesium Level 2.1 mg/dL (1.6-2.6) Iron Level 18 ug/dL (50-170) Total Iron Binding Capacity 416 ug/dL (250-425) Percent Iron Saturation 4.3 % (15-50) Lactate Dehydrogenase 223 U/L (120-246) Triglycerides Level 163 mg/dL (< 150) Cholesterol Level 122 mg/dL (< 200) LDL Cholesterol 67 mg/dL (< 100) HDL Cholesterol 35 mg/dL (40-59) Carcinoembryonic Antigen 0.78 ng/mL (<=5.0) Vitamin B12 Level 636 pg/mL (211-911) Vitamin D 25-Hydroxy 39.9 ng/mL (30.0-100) Folic Acid 42.93 ng/mL (>5.38) Thyroid Stimulating Hormone (TSH) 0.37 uIU/mL (0.55-4.78) Eosinophils (%) (Auto) 2.8 % (0.0-7.0) Eosinophils # (Auto) 0.2 10 ^3/uL (0-0.8) Basophils # (Auto) 0 10 ^3/uL (0-0.2) Nucleated Red Blood Cells 0.2 % Hypochromasia (manual) Marked Microcytosis Marked Reticulocyte Count (auto) 2.19 % (0.5-1.5) Test 09/11/24 20:33 09/11/24 09:04 09/11/24 09:00 09/10/24 18:13 Troponin I High Sensitivity 7 ng/L (</=34) Hemoglobin A1c 7.0 % A1C (<5.7) Hepatitis B Surface Antigen Negative (Negative) Hepatitis C Antibody Positive (Negative) Urine Color Light-yellow (Yellow) Urine Clarity Clear (Clear) Urine pH 6.0 (5.0-9.0) Urine Specific [place] 1.038 (1.001-1.035) Urine Protein Negative (Negative) Urine Ketones Negative (Negative) Urine Blood Negative /uL (Negative) Urine Nitrite Negative (Negative) Urine Bilirubin Negative (Negative) Urine Urobilinogen Normal mg/dL (Negative) Urine Leukocyte Esterase Negative /uL (Negative) Urine RBC <1 /hpf (0 - 4) Urine WBC <1 /hpf (0 - 5) Urine Squamous Epithelial Cells Few /hpf (<5) Urine Bacteria None seen /hpf (None Seen) Urine Glucose 4+ mg/dL (Normal) Anisocytosis (manual) Slight Test 09/10/24 17:02 Total Bilirubin 0.8 mg/dL (0.2-1.0) Aspartate Amino Transferase (AST) 27 U/L (13-40) Alanine Aminotransferase (ALT) 40 U/L (7-40) Alkaline Phosphatase 158 U/L (46-116) Total Protein 6.9 g/dL (5.7-8.2) Albumin 4.6 g/dL (3.2-4.8) Lipase 64 U/L (12-53) Beta HCG, Quantitative 0.8 mIU/mL (1.5-4.2) Other Laboratory Tests 09/13/24 06:19 Brief Hx & Hospital Course: 49-year-old female with a known history of insulin-dependent diabetes mellitus, hypertension, dyslipidemia who initially presented to the hospital with a nausea vomiting diarrhea found to have uncontrolled hyperglycemia in the setting of diabetes mellitus type 2 insulin-dependent. Patient also had mild metabolic acidosis which has improved. Patient was complaining of chest pain eventually cardiology was consulted who cleared the patient to be get EGD patient underwent EGD which shows evidence of esophagitis gastritis. Protonix and Carafate was recommended per GI. Patient was being discharged under stable condition. Condition at Discharge: Stable Final Diagnosis/Problems List 49-year-old female with a known history of insulin-dependent diabetes mellitus, hypertension, dyslipidemia who initially presented to the hospital with a nausea vomiting diarrhea found to have 1. Uncontrolled hyperglycemia in the setting of diabetes mellitus type 2 insulin dependent 2. Mild metabolic acidosis improved 3. Chest pain rule out [place] 4. Hypertension 5-dyslipidemia 6. Microcytic anemia Discharge Disposition: Home SNF Discharge Will this Physician continue t: No Discharge Instruct/Medications Diet: Cardiac 2g Na,low cholest Activity: No Restrictions, As Tolerated Follow Up/Referral: Follow up with the PCP in 1-2 weeks Follow up with GI in 1-2 weeks Medications: Medication as prescribed add Protonix and Carafate Discharge Statement: "Patient was advised to return to the ER or call 911 if any headaches, dizziness, shortness of breath, chest pain, abdominal pain, bleeding, fevers, or worsening of medical condition. Patient was counseled about treatment plan, medications, possible side effects, patientverbalized understanding. All questions were answered to the best of my ability. This discharge took greater then 30 minutes in planning, reviewing documentation, counseling the patient, and discussing with other team members." ASSESSMENT ASSESSMENT Assessment 49-year-old female with a known history of insulin-dependent diabetes mellitus, hypertension, dyslipidemia who initially presented to the hospital with a nausea vomiting diarrhea found to have 1. Uncontrolled hyperglycemia in the setting of diabetes mellitus type 2 insulin dependent 2. Mild metabolic acidosis improved 3. Chest pain rule out [place] 4. Hypertension 5-dyslipidemia 6. Microcytic anemia Date of Service: Sep 13, 2024 Billing Provider: MERYL WALKER MD Common Visit Codes: NOT BILLABLE MERYL WALKER MD Sep 13, 2024 19:04
--- NOTE | 2024-09-13 20:05 | DVHINCON2 ---
DATE OF CONSULTATION: 09/13/2024 REFERRING PHYSICIAN: ____ CONSULTING PHYSICIAN: Obdulia Lemos MD INDICATION: Chest pain. HISTORY OF PRESENT ILLNESS: The patient is a 49-year-old female with a history of diabetes, hypertension, obesity. She initially presented to the hospital with complaints of nausea, vomiting, diarrhea. The patient was also reported symptoms of chest pain. At time of my evaluation, the patient states that she did not have any chest pain upon presentation to the hospital, but did have prior episodes which she described as dull, at times sharp. Her troponin has been negative x 2. She denies any prior history of heart disease known to her. PAST MEDICAL HISTORY: * Hypertension. * Diabetes. * Obesity. MEDICATIONS: Per med rec. ALLERGIES: PENICILLIN. PHYSICAL EXAMINATION: GENERAL: Alert and awake, in no form of cardiopulmonary distress. VITAL SIGNS: Blood pressure 113/57, pulse 107 per minute, saturation 96%. HEENT: No carotid bruits. No jugular venous distention. CHEST: Bilateral air entry, CARDIOVASCULAR: ____. Normal S1, S2. Regular rate and rhythm. No appreciable gallop or rubs. EXTREMITIES: No peripheral edema. DIAGNOSTIC DATA: Sodium 142, potassium 3.6, creatinine is 0.6. White count 7, hemoglobin 8.3, platelet is 318. Troponin negative x 2. ASSESSMENT: * Intractable nausea, vomiting. * Chest pain, atypical, IL has been ruled out. Serial negative troponin, doubt ACS. * Diabetes. * Hypertension. * Anemia. RECOMMENDATIONS: * Continue IV hydration. * Monitor electrolytes. * Hold off aspirin given anemia. * We will review echo once completed. * Continue telemetry monitoring. * If echo unremarkable, no further inpatient cardiac workup indicated. Thank you for allowing me to partake in the care of this patient. MD DDEE Ang/MICHAEL/JACINTA/JONNY TID: [id number] RECEIPT: [id number]
[2024-09-14 08:06] LABS: Haptoglobin 161 mg/dL (42-296)
[2024-09-14 17:06] LABS: Anti-Centromere B Antibody <0.2 AI (0.0-0.9); Anti-Jo-1 Antibody <0.2 AI (0.0-0.9); Anti-dsDNA Antibody <1 IU/mL (0-9); Antichromatin Antibody <0.2 AI (0.0-0.9); Antiscleroderma-70 Antibody <0.2 AI (0.0-0.9); RNP Antibody <0.2 AI (0.0-0.9); Sjogren's Anti-SS-A Antibody <0.2 AI (0.0-0.9); Sjogren's Anti-SS-B Antibody <0.2 AI (0.0-0.9); Smith Antibody <0.2 AI (0.0-0.9)
--- NOTE | 2024-09-18 09:29 | ECG ---
[facility] Test Date: 2024-09-13 Test Time: 04:20:52 Pat Name: LUIS GROSSMAN Department: Room: 0251T A Gender: F Parts Consultant: daniel : 1975 Requested By: ADONIS MOJICA Order Number: [id number] Reading MD: Kurt Rubio Measurements Intervals [place] Rate: 83 P: 59 [place]: 137 QRS: 68 QRSD: 86 T: 38 QT: 402 QTc: 473 Interpretive Statements Sinus rhythm Electronically Signed On 09-19-2024 17:23:11 PST by Kurt Rubio Please click the below link to view image of tracing.
--- NOTE | 2024-09-18 09:38 | ECG ---
[facility] Test Date: 2024-09-13 Test Time: 04:19:56 Pat Name: LUIS GROSSMAN Department: Room: 0251T A Gender: F Turkey Picker: daniel : 1975 Requested By: RUDY NARANJO Order Number: [id number] Reading MD: Kurt Rubio Measurements Intervals [place] Rate: 85 P: 56 [place]: 144 QRS: 64 QRSD: 84 T: 31 QT: 398 QTc: 474 Interpretive Statements Sinus rhythm ST elev, probable normal early repol pattern Electronically Signed On 09-19-2024 17:23:09 PST by Kurt Rubio Please click the below link to view image of tracing.
--- NOTE | 2024-09-23 10:52 | ECG ---
[facility] Test Date: 2024-09-11 Test Time: 14:07:17 Pat Name: LUIS GROSSMAN Department: Room: 0251T A Gender: F Sail Finisher Machine: KAREN : 1975 Requested By: RUDY NARANJO Order Number: [id number] Reading MD: Kurt Rubio Measurements Intervals [place] Rate: 69 P: 60 [place]: 131 QRS: 30 QRSD: 82 T: 2 QT: 407 QTc: 436 Interpretive Statements Sinus rhythm Low voltage, precordial leads Electronically Signed On 09-23-2024 15:51:54 PST by Kurt Rubio Please click the below link to view image of tracing.
== END 2024-09-13 22:00 | disposition home or self-care (01) | DRG 249 ==
LOC: ER 16:47 → TELE 21:52 → TELE-EAST 22:00
PROVIDERS: ADMIT Nurse Practitioner Family; ATTEND Nurse Practitioner Family
PROC: 0DB68ZX Excision of Stomach, Via Natural or Artificial Opening Endoscopic, Diagnostic (ICD-10-PCS; 2024-09-13)
PROC: 0DB98ZX Excision of Duodenum, Via Natural or Artificial Opening Endoscopic, Diagnostic (ICD-10-PCS; principal; 2024-09-13 11:58)
DX: A08.4 Viral intestinal infection, unspecified (principal); E87.20 Acidosis, unspecified; D50.9 Iron deficiency anemia, unspecified; E10.65 Type 1 diabetes mellitus with hyperglycemia; E66.9 Obesity, unspecified; E78.5 Hyperlipidemia, unspecified; K25.7 Chronic gastric ulcer without hemorrhage or perforation; K29.70 Gastritis, unspecified, without bleeding; G56.03 Carpal tunnel syndrome, bilateral upper limbs; R74.8 Abnormal levels of other serum enzymes; F32.A Depression, unspecified; F41.9 Anxiety disorder, unspecified; I10 Essential (primary) hypertension; K59.00 Constipation, unspecified; Z88.0 Allergy status to penicillin; Z88.8 Allergy status to other drugs, medicaments and biological substances; Z79.899 Other long term (current) drug therapy; Z91.199 Patient's noncompliance with other medical treatment and regimen due to unspecified reason; Z87.11 Personal history of peptic ulcer disease; Z90.49 Acquired absence of other specified parts of digestive tract; Z68.33 Body mass index [BMI] 33.0-33.9, adult; Z79.4 Long term (current) use of insulin
CPT/HCPCS: 36415; 43239; 74018; 74176; 80048; 80053; 80061; 81001; 82105; 82140; 82306; 82378; 82607; 82746; 82962; 83010; 83036; 83516; 83540; 83550; 83615; 83690; 83735; 84100; 84443; 84484; 84702; 85007; 85025; 85027; 85045; 85610; 85730; 86225; 86235; 86301; 86803; 87086; 87340; 93005; 93306; 99291; G0378; J1815; J1885; J2250; J2405; J2470

== ENCOUNTER 2024-10-14 16:01 | Emergency (ER) | payer MEDICAID ==
[~2024-10-14] VITALS: Ht 152.4 cm; Wt 75.1 kg
[~2024-10-14 16:01] MED LIST changes: +ATOR10TA PO; -AZIT-43 PO; -NAP500T PO; +PANT40TA2 PO; -PRED20TA2 PO; +ROPI1TAB78 PO; +SUCR1SUS26 PO; +TRAM50TA2 PO; +TRAZ-227 PO
[2024-10-14 16:36] LABS: Basophils # (auto) 0 10 ^3/uL (0-0.2); Eosinophils # (auto) 0.2 10 ^3/uL (0-0.8); Nucleated Red Blood Cells % 0.1 %; Red Cell Distribution Width 19.8 % (11.8-14.3); White Blood Cell 7.3 10^3/uL (4.4-10.8)
[2024-10-14 16:37] LABS: Basophils % (auto) 0.5 % (0.0-2.0); Eosinophils % (auto) 2.2 % (0.0-7.0); Hematocrit 27.8 % (36.0-46.0); Hemoglobin 7.8 g/dL (12.2-16.2); Lymphocytes # (auto) 2.3 10 ^3/uL (0.4-5.4); Lymphocytes % (auto) 30.8 % (10.0-50.0); Mean Corpuscular Hemoglobin 16.4 pg (28.0-32.0); Mean Corpuscular Hgb Conc. 28.1 g/dL (32.0-36.0); Mean Corpuscular Volume 58.4 fL (80.0-100.0); Monocytes # (auto) 0.5 10 ^3/uL (0-1.3); Monocytes % (auto) 6.3 % (0.0-12.0); Neutrophils # (auto) 4.4 10 ^3/uL (1.6-8.6); Neutrophils % (auto) 60.2 % (37.0-80.0); Platelet Count (auto) 258 10^3/uL (140-450); Red Blood Cells 4.76 10^6/uL (4.0-5.20)
--- NOTE | 2024-10-14 16:38 | DVH ---
EXAMINATION: AP portable chest radiograph CLINICAL HISTORY: CHEST PAIN COMPARISON: CHEST PORTABLE on DOS: 07/10/22, CXRP on DOS: 07/10/22, CXRP on DOS: 04/19/22 TECHNIQUE: Portable upright AP view of the chest FINDINGS: Negative AP chest. No dominant consolidations. The costophrenic angles are clear. No sizable pleural effusions or pneumo thorax identified. The cardiomediastinal silhouette appears within normal limits given technique. IMPRESSION: 1. Negative AP chest. 2. No significant change from 07/10/2022.
[2024-10-14 16:52] LABS: INR 0.92 (0.9-1.15); Partial Thromboplastin Time 23.3 SEC (24.5-34.5); Prothrombin Time 9.8 sec (9.3-11.8)
[2024-10-14 16:53] LABS: Alanine Aminotransferase 27 U/L (7-40); Albumin 4.4 g/dL (3.2-4.8); Anion Gap 12 (5-15); Aspartate Aminotransferase 26 U/L (13-40); BUN/Creatinine Ratio 25.6 (10.0-20.0); Bilirubin, Total 0.8 mg/dL (0.2-1.0); Blood Urea Nitrogen 21 mg/dL (9-23); Calcium 9.6 mg/dL (8.7-10.4); Carbon Dioxide 21 mmol/L (20-31); Chloride 106 mmol/L (98-107); Potassium 4.4 mmol/L (3.5-5.1); Sodium 139 mmol/L (136-145); Total Protein 6.9 g/dL (5.7-8.2)
[2024-10-14 16:56] LABS: Alkaline Phosphatase 134 U/L (46-116); Glucose 153 mg/dL (74-106)
[2024-10-14 17:01] LABS: Hypochromia Marked; Platelet Estimate Adequate
[2024-10-14] MEDS: NITROGLYCERIN 0.4 MG SL TAB SL ONE (17:56)
[2024-10-14] MEDS: KETOROLAC TROMETH 30 MG/ML 1ML VIAL IV ONE (18:01)
--- NOTE | 2024-10-14 19:49 | ED.PDOC ---
HPI Comments This patient is a pleasant 49-year-old female who arrives to the ED today for complaints of chest pain concerns that began earlier today and has continued throughout. Patient states she has had similar chest pain concerns multiple times over the past month. Patient has been seen at multiple emergency rooms as well as her primary care provider, but all studies performed of been unremarkable. Patient denies any fever nausea or vomiting. Patient states she does have a history of anemia for which she sees a incident commander. Vital signs were stable on arrival. Chief Complaint: Chest Pain Time Seen by MD: 16:03 Primary Care Provider: NAJMA Reviewed Notes: Nurses Notes Allergies: Coded Allergies: Diphenhydramine (Verified Allergy, Unknown, 02/10/20) Penicillins (Verified Allergy, Unknown, 02/10/20) Home Meds Active Scripts Sucralfate (CARAFATE SUSP) 1 Gm/10 Ml Ss, 10 ML PO BID for 30 Days, #600 ML 1 Refill Prov:MERYL WALKER MD 09/13/24 Pantoprazole Sodium Sesquihydr (Protonix) 40 Mg Tab, 40 MG PO BID, #60 TAB Prov:MERYL WALKER MD 09/13/24 Hydrocodone-Acetaminophen (Hydrocodone Bitartrate/AC 5-325 mg) 1 Tab Tab, 1 TAB PO Q6HPRN PRN, #20 TAB Prov:YOVANY AREVALO 06/04/24 Ondansetron (Zofran) 4 Mg Tab, 1 TAB PO Q8HR PRN, #15 TAB 0 Refills Prov:MATEUSZ ROCA 04/09/23 Meclizine Hcl (Meclizine Hcl) 25 Mg Tab, 25 MG PO TIDPRN PRN for 3 Days, #10 MG Prov:JO ANN ROBERTS DO 07/11/22 Reported Medications Tramadol Hcl (Tramadol Hcl) 50 Mg Tab, 50 MG PO Q6HP, MG 09/11/24 Atorvastatin Calcium (Lipitor) 10 Mg Tab, 10 MG PO DAILY@DINNER, TAB 09/11/24 Ropinirole Hydrochloride (Ropinirole Hcl) 1 Mg Tab, 1 MG PO HS, TAB 09/11/24 Trazodone Hcl (Trazodone Hcl) 50 Mg Tab, 50 MG PO HS, MG 09/11/24 Information Source: Patient, Friend Mode of Arrival: Ambulatory Severity: Moderate Timing: Hours Duration: Since onset Prehospital treatment: None Location: Chest (L), Substernal Quality: Sharp, Squeezing Onset: At Rest Cardiac Risk Factors: None PE Risk Factors: None History of: Similar pain in past Associated Signs and Symptoms: SOB Past Medical History PAST MEDICAL HISTORY: Anxiety, Depression, DM, High Lipids, HTN Surgical History: Cholecystectomy, , Tubal Ligation HEALTH INFORMATICS SPECIALIST History: No Pertinent HEALTH INFORMATICS SPECIALIST History Family History Family History: No family hx of Cancer, No family hx of DM, No family hx of Heart herber, No family hx of HTN, No family hx ofKidney herber, No family hx of Liver herber, No family hx of Lung herber, No family hx of Stroke Social History Smoker: Non-Smoker Alcohol: Denies ETOH Use Drugs: Denies Drug Use Lives In: Home Constitutional: denies: chills, diaphoresis, fatigue, fever, malaise, sweats, weakness, others EENTM: denies: blurred vision, double vision, ear bleeding, ear discharge, ear drainage, ear pain, ear ringing, eye pain, eye redness, hearing loss, mouth pain, mouth swelling, nasal discharge, nose bleeding, nose congestion, nose pain, photophobia, tearing, throat pain, throat swelling, voice changes, others Respiratory: reports: shortness of breath; denies: cough, hemoptysis, orthopnea, SOB at rest, SOB with excertion, stridor, wheezing, others Cardiovascular: reports: chest pain; denies: dizzy spells, diaphoresis, Dyspnea on exertion, edema, irregular heart beat, left arm pain, lightheadedness, palpitations, PND, syncope, others Gastrointestinal: denies: abdomen distended, abdominal pain, blood streaked bowels, constipated, diarrhea, dysphagia, difficulty swallowing, hematemesis, melena, nausea, poor appetite, poor fluid intake, rectal bleeding, rectal pain, vomiting, others Genitourinary: denies: abnormal vagina bleeding, burning, dyspareunia, dysuria, flank pain, frequency, hematuria, incontinence, pain, , vagina discharge, urgency, others Neurological: denies: dizziness, fainting, headache, left sided numbness, left sided weakness, numbness, paresthesia, pre-existing deficit, right sided numbness, right sided weakness, seizure, speech problems, tingling, tremors, weakness, others Musculoskeletal: denies: back pain, gout, joint pain, joint swelling, muscle pa in, muscle stiffness, neck pain, others Integumetry: denies: bruises, change in color, change in hair/nails, dryness, laceration, lesions, lumps, rash, wounds, others Allergic/Immunocompromised: denies: Difficulty Healing, Frequent Infections, Hives, Itching, others Hematologic/Lymphatic: denies: anemia, blood clots, easy bleeding, easy bruising, swollen glands, others Endocrine: denies: excessive hunger, excessive sweating, excessive thirst, excessive urination, flushing, intolerance to cold, intolerance to heat, unexplained weight gain, unexplained weight loss, others Psychiatric: denies: anxiety, bipolar disorder, depression, hopeless, panic disorder, schizophrenia, sleepless, suicidal, others Physical Exam General Appearance: Moderate Distress (Patient was in [id number] distress at time of evaluation.), Obese HEENT: Normal ENT Inspection, Pharynx Normal, TMs Normal Neck: Full Range of Motion, Non-Tender, Normal, Normal Inspection Respiratory: Chest Non-Tender, Lungs Clear, No Accessory Muscle Use, No Respiratory Distress, Normal Breath Sounds, Other (Unremarkable auscultation bilateral lung elena.) Cardiovascular: No Edema, No JVD, No Murmur, No Gallop, Normal Peripheral Pulses, Regular Rate/Rhythm, Other (Unremarkable cardiac evaluation) Breast Exam: Deferred Gastrointestinal: No Organomegaly, Non Tender, No Pulsatile Mass, Normal Bowel Sounds, Soft Genitalia: Deferred Pelvic: Deferred Rectal: Deferred Extremities: No calf tenderness, Normal capillary refill, Normal inspection, Normal range of motion, Non-tender, No pedal edema Neurologic: Alert, cigarette catcher II-XII nml as Tested, No Motor Deficits, Normal Affect, Normal Mood, No Sensory Deficits Cerebellar Function: Normal Reflexes: Normal Skin: Dry, Normal Color, Warm Lymphatic: No Adenopathy Was a procedure done? Was a procedure done?: No CP Differential Dx Differential Diagnosis: A-fib, Anxiety / Panic Attack, Atrial Dysrhythmia, AV Block 1st Degree, ID, Sinus Tachycardia X-Ray, Labs, Meds, VS Vital Signs Date Time Temp Pulse Resp B/P (MAP) Pulse Ox O2 Delivery O2 Flow Rate FiO2 10/14/24 17:56 105/45 10/14/24 17:54 98.7 97 17 105/45 (65) 97 98.7 10/14/24 17:54 95 10/14/24 16:11 98.9 99 19 115/49 (71) 98 10/14/24 16:07 100 Lab Test 10/14/24 17:19 10/14/24 16:18 Range/Units Troponin I High Sensitivity 4 5 </=34 ng/L White Blood Count 7.3 4.4-10.8 10^3/uL Red Blood Count 4.76 4.0-5.20 10^6/uL Hemoglobin 7.8 L 12.2-16.2 g/dL Hematocrit 27.8 L 36.0-46.0 % Mean Corpuscular Volume 58.4 L 80.0-100.0 fL Mean Corpuscular Hemoglobin 16.4 L 28.0-32.0 pg Mean Corpuscular Hemoglobin Concent 28.1 L 32.0-36.0 g/dL Red Cell Distribution Width 19.8 H 11.8-14.3 % Platelet Count 258 140-450 10^3/uL Mean Platelet Volume 8.5 6.9-10.8 fL Neutrophils (%) (Auto) 60.2 37.0-80.0 % Lymphocytes (%) (Auto) 30.8 10.0-50.0 % Monocytes (%) (Auto) 6.3 0.0-12.0 % Eosinophils (%) (Auto) 2.2 0.0-7.0 % Basophils (%) (Auto) 0.5 0.0-2.0 % Neutrophils # (Auto) 4.4 1.6-8.6 10 ^3/uL Lymphocytes # (Auto) 2.3 0.4-5.4 10 ^3/uL Monocytes # (Auto) 0.5 0-1.3 10 ^3/uL Eosinophils # (Auto) 0.2 0-0.8 10 ^3/uL Basophils # (Auto) 0 0-0.2 10 ^3/uL Nucleated Red Blood Cells 0.1 % Platelet Estimate Adequate Hypochromasia (manual) Marked Microcytosis Marked Prothrombin Time 9.8 9.3-11.8 sec Prothrombin Time INR 0.92 0.9-1.15 Activated Partial Thromboplast Time 23.3 L 24.5-34.5 SEC Sodium Level 139 136-145 mmol/L Potassium Level 4.4 3.5-5.1 mmol/L Chloride Level 106 98-107 mmol/L Carbon Dioxide Level 21 20-31 mmol/L Anion Gap 12 5-15 Blood Urea Nitrogen 21 9-23 mg/dL Creatinine 0.82 0.550-1.02 mg/dL Glomerular Filtration Rate Calc 89 >90 mL/min BUN/Creatinine Ratio 25.6 H 10.0-20.0 Serum Glucose 153 H 74-106 mg/dL Calcium Level 9.6 8.7-10.4 mg/dL Total Bilirubin 0.8 0.2-1.0 mg/dL Aspartate Amino Transferase (AST) 26 13-40 U/L Alanine Aminotransferase (ALT) 27 7-40 U/L Alkaline Phosphatase 134 H 46-116 U/L Total Protein 6.9 5.7-8.2 g/dL Albumin 4.4 3.2-4.8 g/dL Current Medications Medications (Trade) Dose Ordered Sig/Ragini Route Start Time Stop Time Status Last Admin Ketorolac Tromethamine (Toradol Injection) 30 mg ONCE ONCE IV 10/14/24 18:00 10/14/24 18:01 DC 10/14/24 18:01 X-Ray, Labs, Meds, VS Comment All studies performed the ED were evaluated by me personally. Laboratories for unremarkable for any acute process. The patient is anemic state was noted, but the patient is receiving outpatient care for that concern. EKG came back with sinus tachycardia at a rate of 100. Otherwise normal EKG with a DE interval of 115 and a QT interval of 354. Chest x-ray was unremarkable for any consolidation or pulmonary concern. Patient did not respond well to the nitro r equired additional pain medication. Advised patient that she will need to follow up with the primary care provider for continued evaluation of her chest pain concerns. Additionally, patient should continue follow up with her incident commander to address the cause of her anemic issues. Time of 1ST Reevaluation: 19:54 Reevaluation 1ST: Improved Consultation: PCP, Cardiology, Other (Hematology) Patient Education/Counseling: Diagnosis, Treatment Family Education/Counseling: Diagnosis, Treatment Departure 1 Departure Time of Disposition: 19:54 Impression: Primary Impression: Chest pain Disposition: HOME / SELF CARE / HOMELESS Condition: Stable Additional Instructions: Advised patient utilize medication as needed and additionally, follow up with [facility] care provider, Cardiology and Hematology to address her chest pain and anemic concerns. e-Prescriptions Hydrocodone-Acetaminophen (Hydrocodone Bitartrate/AC 5-325 mg) 1 Tab Tab 1 TAB PO Q6HP PRN, #10 TAB Prov: BARBI NICKERSON PAC 10/14/24 Ibuprofen Micronized (Ibuprofen) 800 Mg Tab 800 MG PO Q8HP PRN, #20 TAB Prov: BARBI NICKERSON PAC 10/14/24 Discharged With: Self, Friend Critical Care Note Critical Care Time?: No Stability Stability form required: No Heart Score Heart Score: Heart Score Response (Comments) Value History Slightly Suspicious 0 EKG Normal 0 Age 45-64 1 Risk Factors No known risk factors 0 Troponin Normal limit 0 Total 1 BARBI NICKERSON PAC Oct 14, 2024 19:49
[2024-10-14] MEDS ORDERED: IBUP-1455 PO (19:56)
[2024-10-14] MEDS ORDERED: HYDR-4902 PO (19:56)
[2024-10-14 20:10] VITALS: BP 113/52; PULSE 96; RESP 18; TEMP 98.2; O2SAT 99
--- NOTE | 2024-10-17 12:26 | ECG ---
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
== END 2024-10-14 20:12 | disposition home or self-care (01) ==
LOC: ER 16:01
DX: R07.89 Other chest pain (principal); I10 Essential (primary) hypertension; E11.9 Type 2 diabetes mellitus without complications; F41.9 Anxiety disorder, unspecified; F32.A Depression, unspecified; E78.5 Hyperlipidemia, unspecified; Z90.49 Acquired absence of other specified parts of digestive tract; Z98.890 Other specified postprocedural states; Z88.0 Allergy status to penicillin; Z79.899 Other long term (current) drug therapy; Z88.8 Allergy status to other drugs, medicaments and biological substances
CPT/HCPCS: 36415; 71045; 80053; 84484; 85025; 85610; 85730; 93005; 96374; 99285; J1885

== ENCOUNTER 2024-12-24 17:24 | Emergency (ER) | payer MEDICAID ==
[~2024-12-24] VITALS: Ht 152.4 cm; Wt 76.0 kg
[~2024-12-24 17:24] MED LIST changes: +IBUP-1455 PO
--- NOTE | 2024-12-24 17:40 | ED.PDOC ---
History of Present Illness HPI Comments 49-year-old female presents with a chief complaint of neck pain. Patient states that she is having right lateral neck pain, radiates down her right arm, describes as shooting pain, and subsequently is making her right arm numb. Patient reports that she is scheduled to see her surgeon soon sore right-sided rotator cuff issues. Patient is requesting pain management in the meantime until she can see her doctor. No trauma or injuries reported by patient. No deformities to the cervical neck or right arm. Chief Complaint: Neck Pain Time Seen by MD: 17:32 Primary Care Provider: NAJMA Reviewed Notes: Nurses Notes, Medications, Allergies Allergies: Coded Allergies: Diphenhydramine (Verified Allergy, Unknown, 02/10/20) Penicillins (Verified Allergy, Unknown, 02/10/20) Home Meds Active Scripts Hydrocodone-Acetaminophen (Hydrocodone Bitartrate/AC 5-325 mg) 1 Tab Tab, 1 TAB PO Q6HP PRN, #10 TAB Prov:BARBI NICKERSON PAC 10/14/24 Ibuprofen Micronized (Ibuprofen) 800 Mg Tab, 800 MG PO Q8HP PRN, #20 TAB Prov:BARBI NICKERSON PAC 10/14/24 Sucralfate (CARAFATE SUSP) 1 Gm/10 Ml Ss, 10 ML PO BID for 30 Days, #600 ML 1 Refill Prov:MERYL WALKER MD 09/13/24 Pantoprazole Sodium Sesquihydr (Protonix) 40 Mg Tab, 40 MG PO BID, #60 TAB Prov:MERYL WALKER MD 09/13/24 Hydrocodone-Acetaminophen (Hydrocodone Bitartrate/AC 5-325 mg) 1 Tab Tab, 1 TAB PO Q6HPRN PRN, #20 TAB Prov:YOVANY AREVALO PAC 06/04/24 Ondansetron (Zofran) 4 Mg Tab, 1 TAB PO Q8HR PRN, #15 TAB 0 Refills Prov:MATEUSZ ROCA 04/09/23 Meclizine Hcl (Meclizine Hcl) 25 Mg Tab, 25 MG PO TIDPRN PRN for 3 Days, #10 MG Prov:JO ANN ROBERTS DO 07/11/22 Reported Medications Tramadol Hcl (Tramadol Hcl) 50 Mg Tab, 50 MG PO Q6HP, MG 09/11/24 Atorvastatin Calcium (Lipitor) 10 Mg Tab, 10 MG PO DAILY@DINNER, TAB 09/11/24 Ropinirole Hydrochloride (Ropinirole Hcl) 1 Mg Tab, 1 MG PO HS, TAB 09/11/24 Trazodone Hcl (Trazodone Hcl) 50 Mg Tab, 50 MG PO HS, MG 09/11/24 Information Source: Patient Mode of Arrival: Ambulatory Severity: Moderate Timing: Days Duration: Intermittent Prehospital treatment: None Past Medical History PAST MEDICAL HISTORY: Anxiety, Depression, DM, High Lipids, HTN Past Medical History (Other): Patient states right-sided rotator cuff concerns. Surgical History: Cholecystectomy, , Tubal Ligation SENIOR PROCESS CONTROL TECH History: No Pertinent SENIOR PROCESS CONTROL TECH History Family History Family History: No family hx of Cancer, No family hx of DM, No family hx of Heart herber, No family hx of HTN, No family hx ofKidney herber, No family hx of Liver herber, No family hx of Lung herber, No family hx of Stroke Social History Smoker: Non-Smoker Alcohol: Denies ETOH Use Drugs: Denies Drug Use Lives In: Home Constitutional: denies: chills, diaphoresis, fatigue, fever, malaise, sweats, weakness, others EENTM: denies: blurred vision, double vision, ear bleeding, ear discharge, ear drainage, ear pain, ear ringing, eye pain, eye redness, hearing loss, mouth pain, mouth swelling, nasal discharge, nose bleeding, nose congestion, nose pain, photophobia, tearing, throat pain, throat swelling, voice changes, others Respiratory: denies: cough, hemoptysis, orthopnea, SOB at rest, shortness of breath, SOB with excertion, stridor, wheezing, others Cardiovascular: denies: chest pain, dizzy spells, diaphoresis, Dyspnea on exertion, edema, irregular heart beat, left arm pain, lightheadedness, p alpitations, PND, syncope, others Gastrointestinal: denies: abdomen distended, abdominal pain, blood streaked bowels, constipated, diarrhea, dysphagia, difficulty swallowing, hematemesis, melena, nausea, poor appetite, poor fluid intake, rectal bleeding, rectal pain, vomiting, others Genitourinary: denies: abnormal vagina bleeding, burning, dyspareunia, dysuria, flank pain, frequency, hematuria, incontinence, pain, , vagina discharge, urgency, others Neurological: reports: right sided numbness (RIGHT UPPER EXTREMITY); denies: dizziness, fainting, headache, left sided numbness, left sided weakness, numbness, paresthesia, pre-existing deficit, right sided weakness, seizure, speech problems, tingling, tremors, weakness, others Musculoskeletal: reports: neck pain, others (Right-sided rotator cuff concerns); denies: back pain, gout, joint pain, joint swelling, muscle pain, muscle stiffness Integumetry: denies: bruises, change in color, change in hair/nails, dryness, laceration, lesions, lumps, rash, wounds, others Allergic/Immunocompromised: denies: Difficulty Healing, Frequent Infections, Hives, Itching, others Hematologic/Lymphatic: denies: anemia, blood clots, easy bleeding, easy bruising, swollen glands, others Endocrine: denies: excessive hunger, excessive sweating, excessive thirst, excessive urination, flushing, intolerance to cold, intolerance to heat, unexplained weight gain, unexplained weight loss, others Psychiatric: denies: anxiety, bipolar disorder, depression, hopeless, panic disorder, schizophrenia, sleepless, suicidal, others All Other Systems: Reviewed and Negative Physical Exam General Appearance: Moderate Distress (Due to neck and shoulder pain.), Obese HEENT: Normal ENT Inspection, Pharynx Normal, TMs Normal Neck: Other (Diffuse right-sided tenderness to palpation. Moderate hypertonicity appreciated. Straightening of the cervical curve is noted. No step-offs.) Respiratory: Chest Non-Tender, Lungs Clear, No Accessory Muscle Use, No Respiratory Distress, Normal Breath Sounds Cardiovascular: No Edema, No JVD, No Murmur, No Gallop, Normal Peripheral Pulses, Regular Rate/Rhythm Breast Exam: Deferred Gastrointestinal: No Organomegaly, Non Tender, No Pulsatile Mass, Normal Bowel Sounds, Soft Genitalia: Deferred Pelvic: Deferred Rectal: Deferred Extremities: No calf tenderness, No pedal edema, Other (Patient complains of right arm tingling and burning sensations. Patient displays multiple rotator cuff muscle issues. Reduced range of motion noted. Positive empty can. Distal neurovascularly intact.) Musculoskeletal : Apperance: Normal Neurologic: Alert, No Motor Deficits, Normal Affect, Normal Mood, No Sensory Deficits Cerebellar Function: Normal Reflexes: Normal Skin: Dry, Normal Color, Warm Lymphatic: No Adenopathy Was a procedure done? Was a procedure done?: No Differential Dx Considerations may include: Cervical vertebrae fracture, degenerative disc disease of the cervical spine, cervical radiculopathy, nerve impingement X-Ray, Labs, Meds, VS Vital Signs Date Time Temp Pulse Resp B/P (MAP) Pulse Ox O2 Delivery O2 Flow Rate FiO2 12/24/24 18:13 88 16 99 Room Air* 0 21 12/24/24 18:13 88 16 116/67 (83) 99 12/24/24 17:31 97.3 98 16 153/57 (89) 98 Current Medications Medications (Trade) Dose Ordered Sig/Ragini Route Start Time Stop Time Status Last Admin Ketorolac Tromethamine (Toradol Injection) 30 mg ONCE ONCE IM 12/24/24 17:45 12/24/24 17:46 DC 12/24/24 18:11 Acetaminophen/ Hydrocodone Bitart ([place] 5/325MG Tab) 1 tab ONCE ONCE PO 12/24/24 17:45 12/24/24 17:46 DC 12/24/24 18:11 X-Ray, Labs, Meds, VS Comment All studies performed the ED were evaluated by me personally. Imaging studies revealed some minimal degradation but no definitive degenerative disc disease. Some straightening was noted indicative of muscle spasm concerns. Patient will be sent home with supportive medication and has been advised to utilize ice therapy as well. Patient should follow up with her primary care and surgeon for continued management of her right shoulder issues. Time of 1ST Reevaluation: 19:49 Reevaluation 1ST: Improved Consultation: PCP, Other (Orthopedist) Patient Education/Counseling: Diagnosis, Treatment, Prognosis Family Education/Counseling: Diagnosis, Treatment, Prognosis Departure 1 Departure Time of Disposition: 19:50 Impression: Primary Impression: Cervical radiculopathy Additional Impressions: Shoulder impingement Rotator cuff arthropathy Disposition: 01 HOME / SELF CARE / HOMELESS Condition: Stable Additional Instructions: Advised patient utilize pain medication as needed and additionally, patient will need to follow up with primary care provider for long-term medication management and additionally, follow up with orthopedist for continued surgical discussions related to right shoulder rotator cuff concerns. e-Prescriptions Hydrocodone-Acetaminophen (Hydrocodone Bitartrate/AC 5-325 mg) 1 Tab Tab 1 TAB PO Q6HP PRN, #20 TAB Prov: KRISHAN,BARBI B PAC 12/24/24 Ibuprofen Micronized (Ibuprofen) 800 Mg Tab 800 MG PO Q8HP PRN, #20 TAB Prov: BARBI NICKERSON PAC 12/24/24 Discharged With: Self, Friend Critical Care Note Critical Care Time?: No I personally scribed for BARBI NICKERSON PAC ([email or web address]) on 12/24/24 at 17:40. Electronically submitted by Diego Gomez ([email or web address]). BARBI NICKERSON PAC Dec 24, 2024 17:40
[2024-12-24] MEDS: HYDROcodone-ACET 5/325MG TAB PO ONE (18:11)
[2024-12-24] MEDS: KETOROLAC TROMETH 60MG/2ML VIAL IM ONE (18:11)
[2024-12-24 18:13] VITALS: BP 116/67; PULSE 88; RESP 16; O2SAT 99
--- NOTE | 2024-12-24 18:40 | DVH ---
CLINICAL INDICATION: Cervical radiculopathy TECHNIQUE: 3 radiographic views of the cervical spine were obtained. Comparison: None FINDINGS/IMPRESSION: 7 [id number] cervical type vertebra. Mild straightening of the cervical lordosis. Vertebral bod y heights are maintained. No evidence for acute traumatic fractures or spondylolisthesis. Anterior b ridging osteophytes C5-C6 and C6-C7. The dens is intact with the lateral masses of C1 and C2 properly aligned. The prevertebral soft tissues are unremarkable. Airways are patent.
[2024-12-24 20:20] VITALS: PULSE 91; RESP 18; O2SAT 98
== END 2024-12-24 20:18 | disposition home or self-care (01) ==
LOC: ER 17:24
DX: M54.12 Radiculopathy, cervical region (principal); M25.819 Other specified joint disorders, unspecified shoulder; I10 Essential (primary) hypertension; E11.9 Type 2 diabetes mellitus without complications; E78.5 Hyperlipidemia, unspecified; F41.9 Anxiety disorder, unspecified; F32.A Depression, unspecified; Z79.899 Other long term (current) drug therapy; Z90.49 Acquired absence of other specified parts of digestive tract; Z98.51 Tubal ligation status; Z98.890 Other specified postprocedural states; Z88.0 Allergy status to penicillin
CPT/HCPCS: 72040; 96372; 99283; J1885

== ENCOUNTER 2025-05-06 16:45 | Emergency (ER) | payer MEDICAID ==
[~2025-05-06] VITALS: Ht 152.4 cm; Wt 72.5 kg
--- NOTE | 2025-05-06 17:42 | ED.PDOC ---
GI ASSESSMENT HPI Comments This is a 49 year old female presenting to the ED with chief complaint of abdominal pain. Patient reports that she has been experiencing epigastric abdominal pain with associated nausea and vomiting for the past 3 days. Patient relays that she had tried taking Zofran, but she was not able to keep it down. Patient states that she has history of stomach ulcers and has had multiple endoscopies, confirming they are still present. Patient notes that she had recent rotator cuff surgery on 04/27/25 to her right shoulder. Patient reports that she has been unable to acquire pain medication due to pharmacy not releasing the medication because of a recent narcotic prescription recently sent by her PCP. Patient denies any diarrhea, chest pain, SOB, fever, chills, dysuria, or flank pain. Chief Complaint: Nausea/Vomiting Time Seen by MD: 17:36 Primary Care Provider: OLIVIA Thurman Notes: Nurses Notes, Medications, Allergies Allergies: Coded Allergies: Diphenhydramine (Verified Allergy, Unknown, 02/10/20) Penicillins (Verified Allergy, Unknown, 02/10/20) Home Meds Active Scripts Hydrocodone-Acetaminophen (Hydrocodone Bitartrate/AC 5-325 mg) 1 Tab Tab, 1 TAB PO Q6HP PRN, #20 TAB Prov:BARBI NICKERSON PAC 12/24/24 Ibuprofen Micronized (Ibuprofen) 800 Mg Tab, 800 MG PO Q8HP PRN, #20 TAB Prov:BARBI NICKERSON PAC 12/24/24 Hydrocodone-Acetaminophen (Hydrocodone Bitartrate/AC 5-325 mg) 1 Tab Tab, 1 TAB PO Q6HP PRN, #10 TAB Prov:BARBI NICKERSON PAC 10/14/24 Ibuprofen Micronized (Ibuprofen) 800 Mg Tab, 800 MG PO Q8HP PRN, #20 TAB Prov:BARBI NICEKRSON PAC 10/14/24 Sucralfate (CARAFATE SUSP) 1 Gm/10 Ml Ss, 10 ML PO BID for 30 Days, #600 ML 1 Refill Prov:MERYL WALKER MD 09/13/24 Pantoprazole Sodium Sesquihydr (Protonix) 40 Mg Tab, 40 MG PO BID, #60 TAB Prov:MERYL WALKER MD 09/13/24 Hydrocodone-Acetaminophen (Hydrocodone Bitartrate/AC 5-325 mg) 1 Tab Tab, 1 TAB PO Q6HPRN PRN, #20 TAB Prov:YOVANY AREVALO PAC 06/04/24 Ondansetron (Zofran) 4 Mg Tab, 1 TAB PO Q8HR PRN, #15 TAB 0 Refills Prov:MATEUSZ ROCA 04/09/23 Meclizine Hcl (Meclizine Hcl) 25 Mg Tab, 25 MG PO TIDPRN PRN for 3 Days, #10 MG Prov:JO ANN ROBERTS DO 07/11/22 Reported Medications Tramadol Hcl (Tramadol Hcl) 50 Mg Tab, 50 MG PO Q6HP, MG 09/11/24 Atorvastatin Calcium (Lipitor) 10 Mg Tab, 10 MG PO DAILY@DINNER, TAB 09/11/24 Ropinirole Hydrochloride (Ropinirole Hcl) 1 Mg Tab, 1 MG PO HS, TAB 09/11/24 Trazodone Hcl (Trazodone Hcl) 50 Mg Tab, 50 MG PO HS, MG 09/11/24 Information Source: Patient Mode of Arrival: Ambulatory Timing: Days Duration: Since onset Prehospital treatment: None Quality: Sharp Vomitus: Watery Stool: Normal Severity: Moderate Recent: None Recent Hx of: None Pain Location: Epigastric Modifying Factors: Nothing Associated sign and symptoms: Nausea, Vomiting, Abdominal Pain Past Medical History PAST MEDICAL HISTORY: Anxiety, Depression, DM, GERD, High Lipids, HTN Past Medical History (Other): Gastric ulcers Surgical History: Cholecystectomy, , Tubal Ligation Surgical History (Other): Recent right-sided rotator cuff surgery SLED MAKER History: No Pertinent SLED MAKER History Family History Family History: No family hx of Cancer, No family hx of DM, No family hx of Heart herber, No family hx of HTN, No family hx ofKidney herber, No family hx of Liver herber, No family hx of Lung herber, No family hx of Stroke Social History Smoker: Non-Smoker Alcohol: Denies ETOH Use Drugs: Denies Drug Use Lives In: Home Constitutional: denies: chills, diaphoresis, fatigue, fever, malaise, sweats, weakness, others EENTM: denies: blurred vision, double vision, ear bleeding, ear discharge, ear drainage, ear pain, ear ringing, eye pain, eye redness, hearing loss, mouth pain, mouth swelling, nasal discharge, nose bleeding, nose congestion, nose pain, photophobia, tearing, throat pain, throat swelling, voice changes, others Respiratory: denies: cough, hemoptysis, orthopnea, SOB at rest, shortness of breath, SOB with excertion, stridor, wheezing, others Cardiovascular: denies: chest pain, dizzy spells, diaphoresis, Dyspnea on exertion, edema, irregular heart beat, left arm pain, lightheadedness, palpitations, PND, syncope, others Gastrointestinal: reports: abdominal pain, nausea, vomiting; denies: abdomen distended, blood streaked bowels, constipated, diarrhea, dysphagia, difficulty swallowing, hematemesis, melena, poor appetite, poor fluid intake, rectal bleeding, rectal pain, others Genitourinary: denies: abnormal vagina bleeding, burning, dyspareunia, dysuria, flank pain, frequency, hematuria, incontinence, pain, , vagina discharge, urgency, others Neurological: denies: dizziness, fainting, headache, left sided numbness, left sided weakness, numbness, paresthesia, pre-existing deficit, right sided numbness, right sided weakness, seizure, speech problems, tingling, tremors, we akness, others Musculoskeletal: denies: back pain, gout, joint pain, joint swelling, muscle pain, muscle stiffness, neck pain, others Integumetry: denies: bruises, change in color, change in hair/nails, dryness, laceration, lesions, lumps, rash, wounds, others Allergic/Immunocompromised: denies: Difficulty Healing, Frequent Infections, Hives, Itching, others Hematologic/Lymphatic: denies: anemia, blood clots, easy bleeding, easy bruising, swollen glands, others Endocrine: denies: excessive hunger, excessive sweating, excessive thirst, excessive urination, flushing, intolerance to cold, intolerance to heat, unexplained weight gain, unexplained weight loss, others Psychiatric: denies: anxiety, bipolar disorder, depression, hopeless, panic disorder, schizophrenia, sleepless, suicidal, others All Other Systems: Reviewed and Negative Physical Exam General Appearance: Moderate Distress (Due to epigastric burning pain and nausea), Obese HEENT: Normal ENT Inspection, Pharynx Normal, TMs Normal Neck: Full Range of Motion, Non-Tender, Normal, Normal Inspection Respiratory: Chest Non-Tender, Lungs Clear, No Accessory Muscle Use, No Respiratory Distress, Normal Breath Sounds Cardiovascular: No Edema, No JVD, No Murmur, No Gallop, Normal Peripheral Puls es, Regular Rate/Rhythm Breast Exam: Deferred Gastrointestinal: No Pulsatile Mass, Normal Bowel Sounds, Other (Diffuse epigastric tenderness to palpation. No pulsatile masses. Abdomen was reasonably soft.) Genitalia: Deferred Pelvic: Deferred Rectal: Deferred Extremities: Other (Patient arrives with a right arm immobilizer due to recent rotator cuff surgery.) Neurologic: Alert, No Motor Deficits, Normal Affect, Normal Mood, No Sensory Deficits Cerebellar Function: Normal Reflexes: Normal Skin: Dry, Normal Color, Warm Lymphatic: No Adenopathy Was a procedure done? Was a procedure done?: No GI differential Dx Differential Diagnosis: Other (Gastritis, sepsis, electrolyte abnormality, gastric ulcers, GERD) X-Ray, Labs, Meds, VS Vital Signs Date Time Temp Pulse Resp B/P (MAP) Pulse Ox O2 Delivery O2 Flow Rate FiO2 05/06/25 17:28 98.1 72 18 117/76 (90) 96 98.1 Lab Test 05/06/25 18:00 Range/Units White Blood Count 9.2 4.4-10.8 10^3/uL Red Blood Count 5.37 H 4.0-5.20 10^6/uL Hemoglobin 14.5 12.2-16.2 g/dL Hematocrit 42.8 36.0-46.0 % Mean Corpuscular Volume 79.7 L 80.0-100.0 fL Mean Corpuscular Hemoglobin 26.9 L 28.0-32.0 pg Mean Corpuscular Hemoglobin Concent 33.8 32.0-36.0 g/dL Red Cell Distribution Width 13.6 11.8-14.3 % Platelet Count 262 140-450 10^3/uL Mean Platelet Volume 8.3 6.9-10.8 fL Neutrophils (%) (Auto) 67.5 37.0-80.0 % Lymphocytes (%) (Auto) 25.3 10.0-50.0 % Monocytes (%) (Auto) 5.1 0.0-12.0 % Eosinophils (%) (Auto) 1.4 0.0-7.0 % Basophils (%) (Auto) 0.7 0.0-2.0 % Neutrophils # (Auto) 6.2 1.6-8.6 10 ^3/uL Lymphocytes # (Auto) 2.3 0.4-5.4 10 ^3/uL Monocytes # (Auto) 0.5 0-1.3 10 ^3/uL Eosinophils # (Auto) 0.1 0-0.8 10 ^3/uL Basophils # (Auto) 0.1 0-0.2 10 ^3/uL Nucleated Red Blood Cells 0.1 % Sodium Level 142 136-145 mmol/L Potassium Level 3.5 3.5-5.1 mmol/L Chloride Level 106 98-107 mmol/L Carbon Dioxide Level 25 20-31 mmol/L Anion Gap 11 5-15 Blood Urea Nitrogen 9 9-23 mg/dL Creatinine 0.70 0.550-1.02 mg/dL Glomerular Filtration Rate Calc 107 >90 mL/min BUN/Creatinine Ratio 12.9 10.0-20.0 Serum Glucose 123 H 74-106 mg/dL Calcium Level 10.5 H 8.7-10.4 mg/dL X-Ray, Labs, Meds, VS Comment All studies performed the ED were evaluated by me personally. Laboratories were unremarkable for any systemic concerns. Patient was never able to provide urine for us. Patient had relief of symptoms status post medication dispensed. I believe the patient is suffering from gastric ulcers again due to her difficulties in managing her pain due to inability to acquire pain medication. Advised patient to contact her primary care provider in distress for need for pain medication. Patient will be sent home with a short order of a proton pump inhibitor. Time of 1ST Reevaluation: 20:39 Reevaluation 1ST: Improved Consultation: PCP, Surgery Patient Education/Counseling: Diagnosis, Treatment Family Education/Counseling: Diagnosis, Treatment, No Family Present SEPSIS Sepsis Screen Date sepsis recognized/suspect: May 06, 2025 Time Sepsis recognized/suspect: 1714 Recent Procedure: No On Antibiotic Therapy: No Respiratory Rate >20: No Heart Rate >90: No Temp<36 C (96.8 F) or >38.3 C: No SBP <90 or MAP <65 mmHG: No New Acute Mental Status Change: No Is the patient on CPAP, BIPAP,: No Physician Orders Urinalysis (05/06/25 17:36) Vital Signs Date Time Temp Pulse Resp B/P (MAP) Pulse Ox O2 Delivery O2 Flow Rate FiO2 05/06/25 17:28 98.1 72 18 117/76 (90) 96 98.1 Laboratory Tests Test 05/06/25 18:00 White Blood Count 9.2 10^3/uL (4.4-10.8) Departure 1 Departure Time of Disposition: 20:39 Impression: Primary Impression: Gastric peptic ulcer Disposition: HOME / SELF CARE / HOMELESS Condition: Stable Additional Instructions: Advised patient utilize medication as directed and additionally, patient needs to follow up with her surgeon with respect to pain management as well as her primary care provider for discussions related to her continuing gastric ulcer concerns. e-Prescriptions Omeprazole (Gnp Omeprazole) 20 Mg Tab 2 TAB PO DAILY, #40 TAB 0 Refills Prov: BARBI NICKERSON PAC 05/06/25 Discharged With: Self, Friend Critical Care Note Critical Care Time?: No Stability Stability form required: No Heart Score Heart Score: Heart Score Response (Comments) Value History N/A 0 EKG N/A 0 Age N/A 0 Risk Factors N/A 0 Troponin N/A 0 Total 0 I personally scribed for BARBI NICKERSON PAC ([email or web address]) on 05/06/25 at 17:42. Electronically submitted by Ernie Shaikh ([email or web address]). BARBI NICKERSON PAC May 06, 2025 17:42
[2025-05-06] MEDS ORDERED: HYDROmorphone HCL 2 MG/ML VL/or syr IM ONE (17:45)
[2025-05-06 18:12] LABS: Eosinophils # (auto) 0.1 10 ^3/uL (0-0.8); Monocytes # (auto) 0.5 10 ^3/uL (0-1.3); Monocytes % (auto) 5.1 % (0.0-12.0); Neutrophils # (auto) 6.2 10 ^3/uL (1.6-8.6); White Blood Cell 9.2 10^3/uL (4.4-10.8)
[2025-05-06 18:14] LABS: Basophils # (auto) 0.1 10 ^3/uL (0-0.2); Basophils % (auto) 0.7 % (0.0-2.0); Eosinophils % (auto) 1.4 % (0.0-7.0); Hematocrit 42.8 % (36.0-46.0); Hemoglobin 14.5 g/dL (12.2-16.2); Lymphocytes # (auto) 2.3 10 ^3/uL (0.4-5.4); Lymphocytes % (auto) 25.3 % (10.0-50.0); Mean Corpuscular Hemoglobin 26.9 pg (28.0-32.0); Mean Corpuscular Hgb Conc. 33.8 g/dL (32.0-36.0); Mean Corpuscular Volume 79.7 fL (80.0-100.0); Neutrophils % (auto) 67.5 % (37.0-80.0); Nucleated Red Blood Cells % 0.1 %; Platelet Count (auto) 262 10^3/uL (140-450); Red Blood Cells 5.37 10^6/uL (4.0-5.20); Red Cell Distribution Width 13.6 % (11.8-14.3)
[2025-05-06 18:25] LABS: Chloride 106 mmol/L (98-107); Potassium 3.5 mmol/L (3.5-5.1); Sodium 142 mmol/L (136-145)
[2025-05-06 18:26] LABS: Anion Gap 11 (5-15); Carbon Dioxide 25 mmol/L (20-31)
[2025-05-06 18:31] LABS: BUN/Creatinine Ratio 12.9 (10.0-20.0); Blood Urea Nitrogen 9 mg/dL (9-23)
[2025-05-06 18:46] LABS: Calcium 10.5 mg/dL (8.7-10.4); Glucose 123 mg/dL (74-106)
[2025-05-06] MEDS ORDERED: OMEP20TA PO (20:41)
[2025-05-06 23:20] VITALS: BP 134/63; PULSE 69; RESP 18; TEMP 98.2; O2SAT 97
[2025-05-06] MEDS ORDERED: HYDR-4798 PO (23:31)
[2025-05-06] MEDS: LIDOCAINE VISCOUS 2% 15ML UD PO ONE (23:32)
[2025-05-06] MEDS: ONDANSETRON HCL 4 MG/2 ML VIAL IM ONE (23:32)
[2025-05-06] MEDS: PANTOPRAZOLE 40 MG TAB PO ONE (23:32)
[2025-05-06] MEDS: MAALOX PLUS or MAALOX 30 ML PO ONE (23:32)
[2025-05-06] MEDS: HYDROcodone-ACET 10/325MG TAB PO ONE (23:38)
== END 2025-05-06 23:47 | disposition home or self-care (01) ==
LOC: ER 16:45
DX: K25.9 Gastric ulcer, unspecified as acute or chronic, without hemorrhage or perforation (principal); I10 Essential (primary) hypertension; E11.9 Type 2 diabetes mellitus without complications; F32.A Depression, unspecified; F41.9 Anxiety disorder, unspecified; Z79.899 Other long term (current) drug therapy; Z90.49 Acquired absence of other specified parts of digestive tract; Z98.51 Tubal ligation status; Z98.890 Other specified postprocedural states; Z88.0 Allergy status to penicillin
CPT/HCPCS: 36415; 80048; 85025; 96372; 99284; J2405

== ENCOUNTER 2025-05-15 17:28 | Inpatient (IN) | payer MEDICAID ==
[~2025-05-15] VITALS: Ht 160 cm; Wt 76.6 kg
[~2025-05-15 17:28] MED LIST changes: +HYDR-4798 PO; +OMEP20TA PO
--- NOTE | 2025-05-15 17:49 | ECG ---
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
--- NOTE | 2025-05-15 17:53 | ED.PDOC ---
SOB-HPI HPI Comments 49 y.o female with PMHx of DM and GERD, presents to the ED for a chief complaint of SOB that started one hour ago associated with substernal chest pain. Patient reports having right shoulder rotator cuff surgery 2.5 weeks ago. Patient describes pain as sharp, constant, non radiating and rating a 7/10 on the pain scale. Chief Complaint: Shortness of Breath Time Seen by MD: 17:47 Primary Care Provider: NAJMA Thurman notes: Nurses Notes, Medications, Allergies Information Source: Patient Mode of Arrival: Ambulatory Severity: Moderate Timing: Hours (1) Duration: Since onset Context: At Rest PE Risk Factors: Recent Surgery History of: None Modifying Factors: Nothing Associated Signs and Symptoms: Chest Pain Quality: Sharp Radiation: No Radiation Location: Substernal Past Medical History PAST MEDICAL HISTORY: Anxiety, Depression, DM, GERD, High Lipids, HTN Surgical History: Cholecystectomy, , Tubal Ligation Surgical History (Other): right shoulder LOOM CLEANER History: No Pertinent LOOM CLEANER History Family History Family History: No family hx of Cancer, No family hx of DM, No family hx of Heart herber, No family hx of HTN, No family hx ofKidney herber, No family hx of Liver herber, No family hx of Lung herber, No family hx of Stroke Social History Smoker: Non-Smoker Alcohol: Denies ETOH Use Drugs: Denies Drug Use Lives In: Home Constitutional: denies: chills, diaphoresis, fatigue, fever, malaise, sweats, weakness, others EENTM: denies: blurred vision, double vision, ear bleeding, ear discharge, ear drainage, ear pain, ear ringing, eye pain, eye redness, hearing loss, mouth pain, mouth swelling, nasal discharge, nose bleeding, nose congestion, nose pain, photophobia, tearing, throat pain, throat swelling, voice changes, others Respiratory: reports: SOB at rest, shortness of breath, SOB with excertion; denies: cough, hemoptysis, orthopnea, stridor, wheezing, others Cardiovascular: reports: chest pain; denies: dizzy spells, diaphoresis, Dyspnea on exertion, edema, irregular heart beat, left arm pain, lightheadedness, palpitations, PND, syncope, others Gastrointestinal: denies: abdomen distended, abdominal pain, blood streaked bowels, constipated, diarrhea, dysphagia, difficulty swallowing, hematemesis, melena, nausea, poor appetite, poor fluid intake, rectal bleeding, rectal pain, vomiting, others Genitourinary: denies: abnormal vagina bleeding, burning, dyspareunia, dysuria, flank pain, frequency, hematuria, incontinence, pain, , vagina disc harge, urgency, others Neurological: denies: dizziness, fainting, headache, left sided numbness, left sided weakness, numbness, paresthesia, pre-existing deficit, right sided numbness, right sided weakness, seizure, speech problems, tingling, tremors, weakness, others Musculoskeletal: denies: back pain, gout, joint pain, joint swelling, muscle pain, muscle stiffness, neck pain, others Integumetry: denies: bruises, change in color, change in hair/nails, dryness, laceration, lesions, lumps, rash, wounds, others Allergic/Immunocompromised: denies: Difficulty Healing, Frequent Infections, Hives, Itching, others Hematologic/Lymphatic: denies: anemia, blood clots, easy bleeding, easy bruising, swollen glands, others Endocrine: denies: excessive hunger, excessive sweating, excessive thirst, excessive urination, flushing, intolerance to cold, intolerance to heat, unexplained weight gain, unexplained weight loss, others Psychiatric: denies: anxiety, bipolar disorder, depression, hopeless, panic disorder, schizophrenia, sleepless, suicidal, others All Other Systems: Reviewed and Negative Physical Exam General Appearance: Moderate Distress HEENT: Normal ENT Inspection, Pharynx Normal, TMs Normal Neck: Full Range of Motion, Non-Tender, Normal, Normal Inspection Respiratory: Chest Non-Tender, Decreased Breath Sounds, Lungs Clear, No Accessory Muscle Use, Respiratory Distress Cardiovascular: No Edema, No JVD, No Murmur, No Gallop, Tachycardia Breast Exam: Deferred Gastrointestinal: No Organomegaly, Non Tender, No Pulsatile Mass, Normal Bowel Sounds, Soft Genitalia: Deferred Pelvic: Deferred Rectal: Deferred Extremities: No calf tenderness, Normal capillary refill, Normal inspection, Normal range of motion, Non-tender, No pedal edema Musculoskeletal : Apperance: Normal Neurologic: Alert, log manager II-XII nml as Tested, No Motor Deficits, Normal Affect, Normal Mood, No Sensory Deficits Cerebellar Function: Normal Reflexes: Normal Skin: Dry, Normal Color, Warm Lymphatic: No Adenopathy EKG EKG : Pulse Rate (adult): 84 Miranda: Normal Cardiac Rhythm: NSR Block: None ST: Nonsp Was a procedure done? Was a procedure done?: No Differential Dx Differential Diagnosis: Myocardial infarction, Pneumonia, Pulmonary Embolism, Respiratory Distress X-Ray, Labs, Meds, VS Vital Signs Date Time Temp Pulse Resp B/P (MAP) Pulse Ox O2 Delivery O2 Flow Rate FiO2 05/15/25 20:19 90 18 98 Room Air* 0 21 05/15/25 20:19 98.2 78 18 123/78 (93) 97 98.2 05/15/25 20:00 76 05/15/25 18:15 Room Air* 0 21 05/15/25 17:40 84 05/15/25 17:37 98.8 108 20 130/63 (85) 96 98.8 Lab Test 05/15/25 21:37 05/15/25 18:47 05/15/25 17:56 05/15/25 17:35 Range/Units Troponin I High Sensitivity Pending 5 4 </=34 ng/L White Blood Count 8.6 4.4-10.8 10^3/uL Red Blood Count 5.00 4.0-5.20 10^6/uL Hemoglobin 13.5 12.2-16.2 g/dL Hematocrit 39.7 36.0-46.0 % Mean Corpuscular Volume 79.5 L 80.0-100.0 fL Mean Corpuscular Hemoglobin 27.0 L 28.0-32.0 pg Mean Corpuscular Hemoglobin Concent 33.9 32.0-36.0 g/dL Red Cell Distribution Width 13.8 11.8-14.3 % Platelet Count 213 140-450 10^3/uL Mean Platelet Volume 8.6 6.9-10.8 fL Neutrophils (%) (Auto) 66.0 37.0-80.0 % Lymphocytes (%) (Auto) 26.5 10.0-50.0 % Monocytes (%) (Auto) 5.3 0.0-12.0 % Eosinophils (%) (Auto) 1.8 0.0-7.0 % Basophils (%) (Auto) 0.4 0.0-2.0 % Neutrophils # (Auto) 5.7 1.6-8.6 10 ^3/uL Lymphocytes # (Auto) 2.3 0.4-5.4 10 ^3/uL Monocytes # (Auto) 0.5 0-1.3 10 ^3/uL Eosinophils # (Auto) 0.2 0-0.8 10 ^3/uL Basophils # (Auto) 0 0-0.2 10 ^3/uL Nucleated Red Blood Cells 0.0 % D-Dimer, Quantitative 0.84 H 0.0-0.49 mg/L FEU Sodium Level 142 136-145 mmol/L Potassium Level 3.4 L 3.5-5.1 mmol/L Chloride Level 107 98-107 mmol/L Carbon Dioxide Level 22 20-31 mmol/L Anion Gap 13 5-15 Blood Urea Nitrogen 24 H 9-23 mg/dL Creatinine 0.66 0.550-1.02 mg/dL Glomerular Filtration Rate Calc 109 >90 mL/min BUN/Creatinine Ratio 36.4 H 10.0-20.0 Serum Glucose 105 74-106 mg/dL Calcium Level 10.2 8.7-10.4 mg/dL B-Type Natriuretic Peptide 1.78 0-100 pg/mL POC Glucose 122 H 70-106 mg/dl Current Medications Medications (Trade) Dose Ordered Sig/Ragini Route Start Time Stop Time Status Last Admin Ketorolac Tromethamine (Toradol Injection) 15 mg ONCE ONCE IM 05/15/25 20:45 05/15/25 20:46 DC 05/15/25 20:46 The patient was given Toradol 15 mg IM We are going to sign the patient out to Dr. Alvarez The patient's D-dimer is 0.84 The CBC and chemistry panel are within normal limits The patient is status post surgery to the right arm so we are concerned about possible PE We are currently awaiting a CAT scan of the chest to rule out PE The troponin level x2 is negative Time of 1ST Reevaluation: 17:53 Reevaluation 1ST: Unchanged Patient Education/Counseling: Diagnosis, Treatment, Prognosis Family Education/Counseling: No Family Present SEPSIS Sepsis Screen Date sepsis recognized/suspect: May 15, 2025 Time Sepsis recognized/suspect: 1731 Recent Procedure: No On Antibiotic Therapy: No Respiratory Rate >20: No Heart Rate >90: Yes Temp<36 C (96.8 F) or >38.3 C: No SBP <90 or MAP <65 mmHG: No New Acute Mental Status Change: No Is the patient on CPAP, BIPAP,: No Physician Orders Urinalysis (05/15/25 17:49) Heplock Iv (05/15/25 17:49) Pulse Oximetry (05/15/25 17:49) Ice Cream Dispenser (05/15/25 17:49) Blood Pressure (05/15/25 17:49) Ct Angio Chest Contrast (05/15/25 17:49) Troponin-I Hs (05/15/25 20:49) Vital Signs Date Time Temp Pulse Resp B/P (MAP) Pulse Ox O2 Delivery O2 Flow Rate FiO2 05/15/25 20:19 90 18 98 Room Air* 0 21 05/15/25 20:19 98.2 78 18 123/78 (93) 97 98.2 05/15/25 20:00 76 05/15/25 18:15 Room Air* 0 21 05/15/25 17:40 84 05/15/25 17:37 98.8 108 20 130/63 (85) 96 98.8 Laboratory Tests Test 05/15/25 17:56 White Blood Count 8.6 10^3/uL (4.4-10.8) Medications Medications Dose Ordered Sig/Ragini Route Start Time Stop Time Status Last Admin Dose Admin Ketorolac Tromethamine 15 mg ONCE ONCE IM 05/15/25 20:45 05/15/25 20:46 DC 05/15/25 20:46 Departure 1 Departure Time of Disposition: 21:50 Impression: Primary Impression: Shortness of breath Additional Impression: Elevated d-dimer Disposition: ADMITTED INPATIENT Admit to: Tele Condition: Fair Critical Care Note Critical Care Time?: Yes (35 min-critical care time only) Stability Stability form required: Yes Unstable for transfer: Telemetry monitoring (Telemetry monitoring required), ED Physician Assesment (Clinical assesment) I personally scribed for NEIDA ROMAN MD ([email or web address]) on 05/15/25 at 17:53. Electronically submitted by Rosangela Watts ([facility]). NEIDA ROMAN MD May 15, 2025 17:53
[2025-05-15 18:11] LABS: Hematocrit 39.7 % (36.0-46.0); Hemoglobin 13.5 g/dL (12.2-16.2); Mean Corpuscular Hemoglobin 27.0 pg (28.0-32.0); Mean Corpuscular Volume 79.5 fL (80.0-100.0); Nucleated Red Blood Cells % 0.0 %
[2025-05-15 18:20] LABS: Sodium 142 mmol/L (136-145)
[2025-05-15 18:21] LABS: Anion Gap 13 (5-15); Calcium 10.2 mg/dL (8.7-10.4); Carbon Dioxide 22 mmol/L (20-31); Chloride 107 mmol/L (98-107); Potassium 3.4 mmol/L (3.5-5.1)
[2025-05-15 18:26] LABS: BUN/Creatinine Ratio 36.4 (10.0-20.0); Glucose 105 mg/dL (74-106)
[2025-05-15 18:30] LABS: Blood Urea Nitrogen 24 mg/dL (9-23)
[2025-05-15 20:19] VITALS: PULSE 90; RESP 18; O2SAT 98
[2025-05-15] MEDS: KETOROLAC TROMETH 30 MG/ML 1ML VIAL IM ONE (20:46)
[2025-05-15] MEDS: HYDROcodone-ACET 5/325MG TAB PO ONE (22:34)
--- NOTE | 2025-05-15 22:35 | DVH ---
CTA Chest with intravenous contrast INDICATION: sob COMPARISON: None TECHNIQUE: Multidetector spiral CTA of the chest was performed of the chest with intravenous contrast . PULMONARY ANGIOGRAPHY PROTOCOL was utilized using a bolus-tracking technique centered on the main p ulmonary artery. Axial, coronal and sagittal multiplanar and MIP reformats were performed. Radiation Dose : 1. Chest: CTDI volume is 25.01 mGy. Dose-length product is 748.86 mGy*cm The dose indicators for CT are the volume Computed Tomography (CT) Dose Index (CTDIvol) and the Dose Length Product (DLP), and are measured in units of mGy and mGy-cm, respectively. These indicators are not patient dose, but values generated from the CT scanner acquisition factors. The report includes radiation exposure data for exposures received during this examination. Findings: Pulmonary artery: No evidence of pulmonary embolism. Thoracic aorta: No abnormality demonstrated. Lower neck: Unremarkable. Lungs: No pulmonary consolidation or edema. Pleura: No pleural effusion or pneumothorax. Heart: Normal heart size. No pericardial effusion. Mediastinum/Hilum: No abnormality demonstrated. No lymphadenopathy Musculoskeletal: No acute osseous abnormality. Soft tissues: Unremarkable. Upper abdomen: Cholycystectomy morning. IMPRESSION: No evidence of pulmonary embolism. No acute thoracic finding.
[2025-05-15] MEDS ORDERED: NITROGLYCERIN 0.4 MG SL TAB SL PRN (23:45)
[2025-05-15] MEDS ORDERED: ACETAMINOPHEN 325 MG TAB PO PRN (23:45)
[2025-05-15] MEDS ORDERED: MORPHINE SULFATE INJ 2 MG/ml SYRG IV PRN (23:45)
--- NOTE | 2025-05-15 23:56 | DVHHP2 ---
History of Present Illness History of Present Illness Patient is 49 years old female with past medical history of diabetes mellitus type 2, GERD came with a complaint of chest pain and shortness of breaths. As per patient she has been sudden chest pain, central, sharp, 7/10, no aggravating or relieving factor, radiating to the neck for last 1 hour came to the hospital. Patient's pain was associated with the shortness of breaths. Patient denied any sweating palpitation, cough or fever. Initial lab workup revealed D-dimer 0.84, potassium 3.4, MCV 79.7. CT angio chest negative for pulmonary embolism. Past Medical History diabetes mellitus type 2, GERD Past Surgical History Cholecystectomy, , Tubal Ligation, , left knee surgery, right rotator cuff shoulder surgery, bilateral carpal tunnel syndrome surgery Past Social History Denies smoking/alcoholism/use CBD gummy time to time Review of Systems Review of Systems Allergy- NKDA Patient was seen today at the bedside. Cardiovascular- deny acute cough or palpitation Respiratory denies cough or short of breath or wheezing Gastrointestinal- denies any rectal bleeding, nausea or vomiting Musculoskeletal-denies acute joint swelling or tenderness or redness Neurological- denies acute dysarthria, dysphagia, change in vision Psychiatry- denies depression or SI or HI Skin- denies acute rash or purpura Allergies: Coded Allergies: Diphenhydramine (Verified Allergy, Unknown, 02/10/20) Penicillins (Verified Allergy, Unknown, 02/10/20) Medications Current Medications Medications Dose Ordered Sig/Ragini Route Start Time Stop Time Status Last Admin Dose Admin Sodium Chloride 10 ml Q8HR IV 05/16/25 06:00 UNV Enoxaparin Sodium 40 mg DAILY SC 05/16/25 10:00 UNV Acetaminophen 650 mg Q6HP PRN PO 05/15/25 23:45 UNV Nitroglycerin 0.4 mg Q5MINP PRN SL 05/15/25 23:45 UNV Morphine Sulfate 2 mg Q30M PRN IV 05/15/25 23:45 UNV Ibuprofen 400 mg Q6HP PRN PO 05/16/25 00:00 UNV Aspirin 81 mg DAILY PO 05/16/25 10:00 UNV Atorvastatin Calcium 40 mg HS PO 05/16/25 22:00 UNV Diagnostic Test (Pha) 1 strip ACHS 05/16/25 07:00 UNV Insulin Human Regular ACHS SC 05/16/25 07:00 UNV Dextrose 50 ml UD PRN IV 05/16/25 00:00 UNV Exam Vital Signs Vital Signs Date Time Temp Pulse Resp B/P (MAP) Pulse Ox O2 Delivery O2 Flow Rate FiO2 05/15/25 22:00 98.1 87 18 118/75 (89) 97 98.1 05/15/25 20:19 Room Air* 0 21 Exam General examination-awake and alert HEENT- PEERLA, no acute nasal discharge Cardiovascular- S1-S2 audible, rate and rhythm regular, no murmur Respiratory- CTAB, no wheeze or rhonchi Gastrointestinal-nontender, bowel sound+. Nondistended Musculoskeletal-no acute joint swelling or tenderness or redness Lower extremity- no leg edema Neurological- cranial nerves intact, no acute dysarthria or dysphagia Psychiatry- denies depression or SI or HI Skin- no acute rash or purpura Labs/Xrays Labs Test 05/15/25 22:36 05/15/25 21:57 05/15/25 17:56 Range/Units Troponin I High Sensitivity 6 </=34 ng/L POC Glucose 94 70-106 mg/dl White Blood Count 8.6 4.4-10.8 10^3/uL Red Blood Count 5.00 4.0-5.20 10^6/uL Hemoglobin 13.5 12.2-16.2 g/dL Hematocrit 39.7 36.0-46.0 % Mean Corpuscular Volume 79.5 L 80.0-100.0 fL Mean Corpuscular Hemoglobin 27.0 L 28.0-32.0 pg Mean Corpuscular Hemoglobin Concent 33.9 32.0-36.0 g/dL Red Cell Distribution Width 13.8 11.8-14.3 % Platelet Count 213 140-450 10^3/uL Mean Platelet Volume 8.6 6.9-10.8 fL Neutrophils (%) (Auto) 66.0 37.0-80.0 % Lymphocytes (%) (Auto) 26.5 10.0-50.0 % Monocytes (%) (Auto) 5.3 0.0-12.0 % Eosinophils (%) (Auto) 1.8 0.0-7.0 % Basophils (%) (Auto) 0.4 0.0-2.0 % Neutrophils # (Auto) 5.7 1.6-8.6 10 ^3/uL Lymphocytes # (Auto) 2.3 0.4-5.4 10 ^3/uL Monocytes # (Auto) 0.5 0-1.3 10 ^3/uL Eosinophils # (Auto) 0.2 0-0.8 10 ^3/uL Basophils # (Auto) 0 0-0.2 10 ^3/uL Nucleated Red Blood Cells 0.0 % D-Dimer, Quantitative 0.84 H 0.0-0.49 mg/L FEU Sodium Level 142 136-145 mmol/L Potassium Level 3.4 L 3.5-5.1 mmol/L Chloride Level 107 98-107 mmol/L Carbon Dioxide Level 22 20-31 mmol/L Anion Gap 13 5-15 Blood Urea Nitrogen 24 H 9-23 mg/dL Creatinine 0.66 0.550-1.02 mg/dL Glomerular Filtration Rate Calc 109 >90 mL/min BUN/Creatinine Ratio 36.4 H 10.0-20.0 Serum Glucose 105 74-106 mg/dL Calcium Level 10.2 8.7-10.4 mg/dL B-Type Natriuretic Peptide 1.78 0-100 pg/mL Assessment/Plan Assessment/Plan Assessment and plan Acute chest pain, rule out acute coronary syndrome Ruled out Pulmonary embolism Acute chest pain likely due to musculoskeletal pain/costochondritis- chest wall tenderness positive Diabetes mellitus type 2 GERD Obesity Plan Continue aspirin 81 mg p.o. daily Continue atorvastatin 40 mg p.o. q.h.s. Continue pantoprazole 40 mg p.o. daily Insulin sliding scale as prescribed restarted home medication trazodone and Carafate Ibuprofen PRN as per Pending echo 2D Goals of care, Code status ; discussed with >15 minutes PUD prophylaxis: Pantoprazole DVT prophylaxis: Lovenox Plan discussed with Dr. Franklin , nursing staff, Total time spent on patient evaluation, chart review, assessment and plan, discussion discussion >35 minutes Plan discussed with: Patient, Other (RN) My Orders Orders - THANH AWAD RESIDENT Procedure Category Date Status Time Admit ADMIT 05/15/25 Transmitted 23:43 Code Status CODE 05/15/25 Transmitted 23:43 Sodium Chloride Lock PHA 05/16/25 Logged (Saline Lock Ns) 06:00 Enoxaparin Sodium PHA 05/16/25 Logged (Lovenox) 10:00 Complete Blood Count LAB 05/16/25 Verified 04:00 Comprehensive LAB 05/16/25 Verified Metabolic Panel 04:00 Echo 2d Mode Cardiac US 05/15/25 Logged DOP 23:43 Acetaminophen Tablet PHA 05/15/25 Logged (Tylenol Tablet) 23:45 Nitroglycerin PHA 05/15/25 Logged Sublingual (Ntrostat 23:45 Morphine Sulfate PHA 05/15/25 Logged Injection 23:45 Notify Of Changes [facility] 05/15/25 In Process From Base 23:43 Hr Consultant For [facility] 05/15/25 In Process 24 Hours 23:43 Electrocardigram EKG 05/15/25 Logged 23:46 Ibuprofen Tablet PHA 05/16/25 Logged (Motrin Tablet) 00:00 Ibuprofen Tablet PHA 05/16/25 Logged (Motrin Tablet) 00:00 Aspirin Tablet PHA 05/16/25 Logged 10:00 Atorvastatin (Lipitor) PHA 05/16/25 Logged 00:00 Atorvastatin (Lipitor) PHA 05/16/25 Logged 22:00 Glucose Blood PHA 05/16/25 Logged (Accu-Chek Comfort 07:00 Insulin R (Human) PHA 05/16/25 Logged (Insulin R) 07:00 Dextrose 50% Syringe PHA 05/16/25 Logged 00:00 Drug Screen LAB 05/15/25 Logged 23:51 Thyroid Stimulating LAB 05/15/25 Logged Hormone 23:51 Potassium Er Tablet PHA 05/16/25 Logged (Klor-Con Tablet) 00:00 Hepatic Panel LAB 05/15/25 Logged 23:52 Date of Service: May 15, 2025 Billing Provider: NICHOLAS FRANKLIN MD Common Visit Codes: [id number] INP/OBS CARE (HIGH) Secondary Visit Codes: [id number]-[id number] CARE PLAN 30 MINUTES THANH AWAD RESIDENT May 15, 2025 23:56
[2025-05-16] MEDS ORDERED: IBUPROFEN 400 MG TAB PO PRN
[2025-05-16] MEDS ORDERED: DEXTROSE (50%) 50ML SYRG IV PRN
[2025-05-16 00:10] LABS: Alanine Aminotransferase 22.0 U/L (7-40); Albumin 4.6 g/dL (3.2-4.8); Alkaline Phosphatase 102.0 U/L (46-116); Bilirubin, Direct 0.3 mg/dL (<0.3); Total Protein 6.9 g/dL (5.7-8.2)
[2025-05-16 00:11] LABS: Bilirubin, Total 1.0 mg/dL (0.2-1.0)
[2025-05-16] MEDS: POTASSIUM CHL 20 Meq TABLET PO ONE (00:16)
[2025-05-16] MEDS: IBUPROFEN 400 MG TAB PO ONE (00:18)
[2025-05-16] MEDS: guaiFENesin-DM 100/10mg/5ml SYR PO ONE (00:57)
[2025-05-16] MEDS: IOHEXOL 350 MG/ML 100ML IJ ONE (01:25)
[2025-05-16 02:04] LABS: Urine Protein, UAD TRACE (Negative)
[2025-05-16 02:08] LABS: Amphetamine Screen, Urine Neg (NEGATIVE); Barbiturate Scree,Urine Neg (NEGATIVE); Benzodiazephine Screen, Urine Neg (NEGATIVE); Cannabinoid Screen, Urine Pos (NEGATIVE); Cocaine Screen, Urine Neg (NEGATIVE); Opiate Scree,Urine Pos (NEGATIVE); Phencyclidine Screen, Urine Neg (NEGATIVE)
[2025-05-16] MEDS: ATORVASTATIN 20 MG TAB PO ONE ×2 (02:37)
[2025-05-16] MEDS: HYDROcodone-ACET 5/325MG TAB PO PRN (04:40)
[2025-05-16 04:47] LABS: Hematocrit 39.8 % (36.0-46.0); Hemoglobin 13.4 g/dL (12.2-16.2); Mean Corpuscular Hemoglobin 26.7 pg (28.0-32.0); Mean Corpuscular Volume 79.7 fL (80.0-100.0); Nucleated Red Blood Cells % 0.1 %
[2025-05-16 05:01] LABS: Alanine Aminotransferase 23 U/L (7-40); Albumin 4.7 g/dL (3.2-4.8); Alkaline Phosphatase 104 U/L (46-116); Anion Gap 13 (5-15); BUN/Creatinine Ratio 29.6 (10.0-20.0); Blood Urea Nitrogen 21 mg/dL (9-23); Calcium 9.8 mg/dL (8.7-10.4); Carbon Dioxide 20 mmol/L (20-31); Chloride 105 mmol/L (98-107); Potassium 4.0 mmol/L (3.5-5.1); Sodium 138 mmol/L (136-145); Total Protein 6.9 g/dL (5.7-8.2)
[2025-05-16 05:07] LABS: Bilirubin, Total 1.4 mg/dL (0.2-1.0); Glucose 168 mg/dL (74-106)
[2025-05-16] MEDS: SODIUM CHLOR 0.9% PF (SALINE LOCK) 10ML VIAL/SYR IV SCH (05:54)
[2025-05-16] MEDS: InsuLIN REG 1unit/0.01ml Soln (100units/ml) SC SCH (06:27)
[2025-05-16] MEDS: ACCU-CHEK COMFORT CURVE STRIP VI SCH (06:54)
[2025-05-16] MEDS: SUCRALFATE 1 GM/10 ML ORAL SUSP PO SCH (09:50)
[2025-05-16] MEDS: ENOXAPARIN SOD 40 MG/0.4 ML SYRINGE SC SCH (09:51)
[2025-05-16] MEDS: FAMOTIDINE 20 MG TAB PO ONE (12:17)
[2025-05-16] MEDS: POLYETHYLENE GLYCOL 17 GM PWDR PO ONE (12:17)
[2025-05-16] MEDS: KETOROLAC TROMETH 30 MG/ML 1ML VIAL IV ONE (12:17)
[2025-05-16] MEDS: KETOROLAC TROMETH 30 MG/ML 1ML VIAL IV SCH (13:17)
[2025-05-16 15:17] VITALS: BP 126/62; PULSE 69; RESP 18; TEMP 98.3; O2SAT 98
--- NOTE | 2025-05-16 15:39 | DVHPNRES ---
Progress Note Date Seen: May 16, 2025 Resident Creating Document: CHANELL HAGEN RESIDENT Has the PT tested + for MRSA If YES, has PT been informed?: No Medical Necessity Reason Pt with a Central, PICC or Fol: No Subjective Review of Systems Patient is a 49-year-old female with prior medical history of GERD, type 2 diabetes mellitus, and history of peptic ulcers who presents to the ED chief complaint of chest pain that began at rest and is described as a sharp pressure in the central region of the chest, that radiates towards the right shoulder, with intensity of 8/10, with no aggravating nor relieving factors and it is associated with cough shortness of breath, and vomiting. Denies palpitations, dizziness, fever, chills. A 12 lead EKG done in the ED shows sinus rhythm with no specific ST changes, troponins negative, D-dimer 0.84, CT angio negative for PE, and potassium 3.4. Patient admitted for further monitoring. Patient seen at bedside. Patient states improvement of chest pain with intensity of 6/10, still complains of some shortness of breath but overall improved. Patient states that she recently had rotator cuff correction surgery her stitches removed yesterday and pain concentrates towards this area. Additionally states she had a previous episode of pain about 9 months ago for which she was hospitalized at [facility] with workup resulting in a diagnosis of chest pain due to musculoskeletal causes. Constitutional: Patient alert, oriented, Cardiovascular- states chest pain Respiratory: Refers cough, improved shortness of breath Gastrointestinal- Refers constipation, denies any rectal bleeding, nausea or vomiting. Musculoskeletal-Referrs right shoulder Neurological- denies acute dysarthria, dysphagia, change in vision Skin- denies acute rash or purpura Objective vital signs Vital Sign Date Time Temp Pulse Resp B/P (MAP) Pulse Ox O2 Delivery O2 Flow Rate FiO2 05/16/25 14:07 83 16 126/49 (74) 98 05/16/25 10:00 98.0 98.0 05/16/25 07:30 Room Air* 0 21 medications Current Medications Medications Dose Ordered Sig/Ragini Route Start Time Stop Time Status Last Admin Dose Admin Sodium Chloride 10 ml Q8HR IV 05/16/25 06:00 05/16/25 14:06 10 ML Enoxaparin Sodium 40 mg DAILY SC 05/16/25 10:00 05/16/25 09:51 40 MG Atorvastatin Calcium 40 mg HS PO 05/16/25 22:00 Diagnostic Test (Pha) 1 strip ACHS 05/16/25 07:00 05/16/25 11:02 1 STRIP Insulin Human Regular ACHS SC 05/16/25 07:00 05/16/25 11:09 6 UNITS Dextrose 50 ml UD PRN IV 05/16/25 00:00 Acetaminophen/ Hydrocodone Bitart 1 tab Q6HPRN PRN PO 05/16/25 01:15 05/16/25 14:08 1 TAB Trazodone HCl 50 mg HS PO 05/16/25 02:00 Guaifenesin/ Dextromethorphan 10 ml Q6HPRN PRN PO 05/16/25 04:30 Pantoprazole Sodium 40 mg BID@0600,1700 PO 05/16/25 17:00 Polyethylene Glycol 17 gm DAILY PO 05/17/25 10:00 Famotidine 20 mg Q12HR PO 05/16/25 22:00 Ketorolac Tromethamine 15 mg Q8HR IV 05/16/25 14:00 05/21/25 13:59 Examination Physical exam General: The patient alert and oriented in person place and time. Patient following commands HEENT: Normocephalic , atraumatic, moist mucous membrane Respiratory/pulmonary: Clear lungs bilaterally, vesicular murmurs present in almost all lung elena, no associated crackles or wheezes. Chest: Pain to palpation Abdomen: Abdomen nondistended, there is no pain to palpation in any of the abdominal quadrants, no palpable masses. Extremities: there is no peripheral edema present at the lower extremities. R ight arm in brace. Movement of right shoulder restricted, pain to palpation of right shoulder, currently covered by bandages post removal of stitches. Peripheral pulses 3+ radial right, 3+ radials soft. 3+ dorsalis pedis right. 3+ dorsalis pedis left Skin: No rashes or pruritus. Neurological: Intact cranial nerves with no focal neurologic deficit laboratory and microbiology Laboratory Tests 05/16/25 04:05 Test 05/16/25 04:05 Range/Units Serum Glucose 168 H 74-106 mg/dL Problem List/Assessment/Plan Problem List/Assessment/Plan Assessment and Plan: Acute chest pain, ruled out acute coronary syndrome -EKG showing Sinus rhytm no specific ST changes -Troponins negative Ruled out Pulmonary embolism -Initial D-dimer 0.85, CT angio chest ruled out PE Acute chest pain likely due to referred pain from right shoulder -Patient has history of recent history of rotator cuff surgery -IV torodol 15 mg q8 Diabetes mellitus type 2 with hyperglycemia (HbA1c 7.2) -Lantus 10 units at HS and mild sliding scale insulin GERD -S/p endoscopy in 2023 with findings 1. [id number] antral gastritis with multiple pre-pyloric antral gastric tiny erosions and ulcers -Pepcid 20 mg bid Slow transit constipation -Miralax powder Plan discussed with Dr. Gleason. Plan discussed with patient and nurse. Plan discussed with: Patient Date of Service: May 16, 2025 Billing Provider: JAVIER GLEASON MD Common Visit Codes: [id number] INP/OBS CARE(HIGH) CHANELL HAGEN RESIDENT May 16, 2025 15:39 JAVIER GLEASON MD May 16, 2025 21:16
[2025-05-16 15:44] VITALS: BP 126/62; PULSE 69; RESP 18; TEMP 98.3; O2SAT 98
[2025-05-16] MEDS: PANTOPRAZOLE 40 MG TAB PO SCH (17:31)
[2025-05-16 20:00] VITALS: PULSE 77; PULSE 84; RESP 18; O2SAT 98
[2025-05-16 21:00] VITALS: BP 106/68; PULSE 75; RESP 16; TEMP 98.2; O2SAT 97
[2025-05-16] MEDS: FAMOTIDINE 20 MG TAB PO SCH (22:05)
[2025-05-16] MEDS: ATORVASTATIN 20 MG TAB PO SCH (22:05)
[2025-05-16] MEDS: INSULIN LANTUS (GLARGINE) 1 /0.01ml (100units/ml) SC SCH (22:31)
[2025-05-17 01:00] VITALS: BP 124/72; PULSE 68; RESP 16; TEMP 97.9; O2SAT 97
[2025-05-17 05:00] VITALS: BP 115/63; PULSE 82; RESP 19; TEMP 97.7; O2SAT 97
[2025-05-17] MEDS: guaiFENesin-DM 100/10mg/5ml SYR PO PRN (06:32)
[2025-05-17 08:00] VITALS: PULSE 68
[2025-05-17 08:01] VITALS: RESP 17; O2SAT 97
[2025-05-17] MEDS ORDERED: ATOR20TA50 PO (08:39)
[2025-05-17 09:00] VITALS: BP 125/69; PULSE 68; RESP 17; TEMP 98.1; O2SAT 100
[2025-05-17] MEDS: POLYETHYLENE GLYCOL 17 GM PWDR PO SCH (09:18)
--- NOTE | 2025-05-17 09:20 | DVH ---
CHEST RADIOGRAPH Indication: Cough Technique: Single frontal view of the chest was obtained Comparison: XY CHEST PORTABLE on DOS: 10/14/24, CHEST PORTABLE on DOS: 07/10/22, CXRP on DOS: 07/10/22, CXRP on DOS: 04/19/22, CHEST PORTABLE on DOS: 04/19/22 FINDINGS: Lines and Tubes: None Lungs: No focal consolidation. Pleura: No effusion. No pneumothorax. Cardiomediastinal contours: Unremarkable Bones: No acute osseous abnormality. IMPRESSION: No acute cardiopulmonary disease.
[2025-05-17] MEDS ORDERED: CEL100T PO (10:56)
[2025-05-17 12:23] VITALS: BP 118/73; PULSE 65; RESP 18; TEMP 98.5; O2SAT 98
--- NOTE | 2025-05-17 15:46 | DVHDSRES ---
Discharge Summary Date of Admission Resident Creating Document: CHANELL HAGEN RESIDENT May 15, 2025 at 23:43 Date of Discharge: May 17, 2025 Admitting Diagnosis Acute Chest Pain Labs/Diagnostic Data: Laboratory Results Test 05/17/25 06:21 05/16/25 06:26 05/16/25 04:05 05/16/25 01:30 POC Glucose 206 mg/dl (70-106) Vitamin B12 Level 626 pg/mL (211-911) Folic Acid 23.49 ng/mL (>5.38) White Blood Count 7.2 10^3/uL (4.4-10.8) Red Blood Count 5.00 10^6/uL (4.0-5.20) Hemoglobin 13.4 g/dL (12.2-16.2) Hematocrit 39.8 % (36.0-46.0) Mean Corpuscular Volume 79.7 fL (80.0-100.0) Mean Corpuscular Hemoglobin 26.7 pg (28.0-32.0) Mean Corpuscular Hemoglobin Concent 33.6 g/dL (32.0-36.0) Red Cell Distribution Width 14.0 % (11.8-14.3) Platelet Count 189 10^3/uL (140-450) Mean Platelet Volume 9.2 fL (6.9-10.8) Neutrophils (%) (Auto) 53.2 % (37.0-80.0) Lymphocytes (%) (Auto) 35.9 % (10.0-50.0) Monocytes (%) (Auto) 7.9 % (0.0-12.0) Eosinophils (%) (Auto) 2.5 % (0.0-7.0) Basophils (%) (Auto) 0.5 % (0.0-2.0) Neutrophils # (Auto) 3.8 10 ^3/uL (1.6-8.6) Lymphocytes # (Auto) 2.6 10 ^3/uL (0.4-5.4) Monocytes # (Auto) 0.6 10 ^3/uL (0-1.3) Eosinophils # (Auto) 0.2 10 ^3/uL (0-0.8) Basophils # (Auto) 0 10 ^3/uL (0-0.2) Nucleated Red Blood Cells 0.1 % Sodium Level 138 mmol/L (136-145) Potassium Level 4.0 mmol/L (3.5-5.1) Chloride Level 105 mmol/L (98-107) Carbon Dioxide Level 20 mmol/L (20-31) Anion Gap 13 (5-15) Blood Urea Nitrogen 21 mg/dL (9-23) Creatinine 0.71 mg/dL (0.550-1.02) Glomerular Filtration Rate Calc 105 mL/min (>90) BUN/Creatinine Ratio 29.6 (10.0-20.0) Serum Glucose 168 mg/dL (74-106) Hemoglobin A1c 7.1 % A1C (<5.7) Calcium Level 9.8 mg/dL (8.7-10.4) Total Bilirubin 1.4 mg/dL (0.2-1.0) Aspartate Amino Transferase (AST) 19 U/L (13-40) Alanine Aminotransferase (ALT) 23 U/L (7-40) Alkaline Phosphatase 104 U/L (46-116) Total Protein 6.9 g/dL (5.7-8.2) Albumin 4.7 g/dL (3.2-4.8) Vitamin D 25-Hydroxy 33.3 ng/mL (30.0-100) Thyroid Stimulating Hormone (TSH) 3.70 uIU/mL (0.55-4.78) Urine Color Yellow (Yellow) Urine Clarity Clear (Clear) Urine pH 6.0 (5.0-9.0) Urine Specific [place] > 1.050 (1.001-1.035) Urine Protein Trace (Negative) Urine Ketones Trace (Negative) Urine Blood Negative /uL (Negative) Urine Nitrite Negative (Negative) Urine Bilirubin Negative (Negative) Urine Urobilinogen Normal mg/dL (Negative) Urine Leukocyte Esterase Negative /uL (Negative) Urine RBC 7 /hpf (0 - 4) Urine Microscopic WBC < 1 /HPF (0-5) Urine Squamous Epithelial Cells Few /hpf (<5) Urine Bacteria None seen /hpf (None Seen) Urine Mucus Few (None Seen) Urine Glucose 2+ mg/dL (Normal) Urine Opiates Screen Pos (NEGATIVE) Urine Fentanyl Screen Neg (NEGATIVE) Urine Barbiturates Screen Neg (NEGATIVE) Urine Phencyclidine Screen Neg (NEGATIVE) Urine Amphetamines Screen Neg (NEGATIVE) Urine Benzodiazepines Screen Neg (NEGATIVE) Urine Cocaine Screen Neg (NEGATIVE) Urine Cannabinoids Screen Pos (NEGATIVE) Test 05/15/25 22:36 05/15/25 17:56 Direct Bilirubin 0.3 mg/dL (<0.3) Troponin I High Sensitivity 6 ng/L (</=34) D-Dimer, Quantitative 0.84 mg/L FEU (0.0-0.49) B-Type Natriuretic Peptide 1.78 pg/mL (0-100) Other Laboratory Tests 05/16/25 04:05 Brief Hx & Hospital Course: Patient is a 49-year-old female with prior medical history of GERD, type 2 diabetes mellitus, and history of peptic ulcers who presented to the ED with complaint of chest pain that began at rest and is described as sharp pressure in the central region of the chest that radiates towards the right shoulder with intensity of 8/10 with no aggravating or relieving factor and associated with cough, shortness of breath, and vomiting that began after having stitches removed from right shoulder. She denies palpitations, dizziness, fever, and chills. A 12 lead EKG done in the ED showed sinus rhythm with nonspecific ST changes, troponins were negative, D-dimer 0.84, CT angiogram negative for PE and potassium 3.4. On admission, oral potassium was given, analgesia was provided, and Robitussin was given for persistent cough. On evaluation patient presented chest wall tenderness predominantly in the upper right region close to the right shoulder and limited shoulder mobility. Patient was treated with Toradol injections, IV Protonix and Pepcid for GERD, and MiraLax for constipation. Today patient stated that she was feeling better, chest pain had improved. Due to cough chest x-ray was taken which showed no acute cardiopulmonary disease. Patient discharged home with PO Protonix, PO celecoxib for pain, and follow-up in D/C clinic and pain clinic. Operations or Procedures CTA Chest with intravenous contrast INDICATION: sob COMPARISON: None TECHNIQUE: Multidetector spiral CTA of the chest was performed of the chest with intravenous contrast. PULMONARY ANGIOGRAPHY PROTOCOL was utilized using a bolus- tracking technique centered on the main pulmonary artery. Axial, coronal and sagittal multiplanar and MIP reformats were performed. Radiation Dose : 1. Chest: CTDI volume is 25.01 mGy. Dose-length product is 748.86 mGy*cm The dose indicators for CT are the volume Computed Tomography (CT) Dose Index (CTDIvol) and the Dose Length Product (DLP), and are measured in units of mGy and mGy-cm, respectively. These indicators are not patient dose, but values generated from the CT scanner acquisition factors. The report includes radiation exposure data for exposures received during this examination. Findings: Pulmonary artery: No evidence of pulmonary embolism. Thoracic aorta: No abnormality demonstrated. Lower neck: Unremarkable. Lungs: No pulmonary consolidation or edema. Pleura: No pleural effusion or pneumothorax. Heart: Normal heart size. No pericardial effusion. Mediastinum/Hilum: No abnormality demonstrated. No lymphadenopathy Musculoskeletal: No acute osseous abnormality. Soft tissues: Unremarkable. Upper abdomen: Cholycystectomy morning. IMPRESSION: No evidence of pulmonary embolism. No acute thoracic finding. CHEST RADIOGRAPH Indication: Cough Technique: Single frontal view of the chest was obtained Comparison: XY CHEST PORTABLE on DOS: 10/14/24, CHEST PORTABLE on DOS: 07/10/22, CXRP on DOS: 07/10/22, CXRP on DOS: 04/19/22, CHEST PORTABLE on DOS: 04/19/22 FINDINGS: Lines and Tubes: None Lungs: No focal consolidation. Pleura: No effusion. No pneumothorax. Cardiomediastinal contours: Unremarkable Bones: No acute osseous abnormality. IMPRESSION: No acute cardiopulmonary disease. Condition at Discharge: Stable Final Diagnosis/Problems List Acute chest pain, ruled out acute coronary syndrome Ruled out Pulmonary embolism Acute chest pain likely musculoskeletal due to referred pain from right shoulder Diabetes mellitus type 2 with hyperglycemia (HbA1c 7.2) Slow transit constipation GERD Discharge Disposition: Home Discharge Instruct/Medications Diet: Consistent carbohydrate Activity: No Restrictions, As Tolerated Follow Up/Referral: Follow up with DC clinic in 1 week Follow up with Pain clinic in 1 to 2 weeks. Medications: As per EMR Scheduled Atorvastatin Calcium (Lipitor), 10 MG PO DAILY@DINNER, (Reported) Atorvastatin Calcium (Atorvastatin Calcium), 1 TAB PO HS Celecoxib (CeleBREX CAPSULE), 1 CAP PO BID Pantoprazole Sodium Sesquihydr (Protonix), 40 MG PO BID Ropinirole Hydrochloride (Ropinirole Hcl), 1 MG PO HS, (Reported) Sucralfate (Carafate Susp), 10 ML PO BID Tramadol Hcl (Tramadol Hcl), 50 MG PO Q6HP, (Reported) Trazodone Hcl (Trazodone Hcl), 50 MG PO HS, (Reported) Scheduled PRN Ondansetron (Zofran), 1 TAB PO Q8HR PRN Discontinued Medications Hydrocodone-Acetaminophen (Hydrocodone Bitartrate/AC 5-325 mg), 1 TAB PO Q6HPRN PRN Hydrocodone-Acetaminophen (Hydrocodone Bitartrate/AC 5-325 mg), 1 TAB PO Q6HP PRN Hydrocodone-Acetaminophen (Hydrocodone Bitartrate/AC 5-325 mg), 1 TAB PO Q6HP PRN Hydrocodone-Acetaminophen (Hydrocodone Bitartrate/AC 10-325 mg), 1 TAB PO Q8HP PRN Ibuprofen Micronized (Ibuprofen), 800 MG PO Q8HP PRN Ibuprofen Micronized (Ibuprofen), 800 MG PO Q8HP PRN Meclizine Hcl (Meclizine Hcl), 25 MG PO TIDPRN PRN Omeprazole (Gnp Omeprazole), 2 TAB PO DAILY Discharge Statement: "Patient was advised to return to the ER or call 911 if any headaches, dizziness, shortness of breath, chest pain, abdominal pain, bleeding, fevers, or worsening of medical condition. Patient was counseled about treatment plan, medications, possible side effects, patientverbalized understanding. All questions were answered to the best of my ability. This discharge took greater then 30 minutes in planning, reviewing documentation, counseling the patient, and discussing with other team members." ASSESSMENT ASSESSMENT Assessment Acute chest pain, ruled out acute coronary syndrome Ruled out Pulmonary embolism Acute chest pain likely due to referred pain from right shoulder Date of Service: May 17, 2025 Billing Provider: JAVIER GLEASON MD Common Visit Codes: 54017-QOM/OBS DISCH DAY >30min CHANELL HAGEN RESIDENT May 17, 2025 15:46 JAVIER GLEASON MD May 18, 2025 08:44
--- NOTE | 2025-05-18 10:17 | DVHSR ---
APPROVED REPORT EXAM: Two-dimensional and M-mode echocardiogram with Doppler and color Doppler. Blood Pressure: 102/49 mmHg INDICATION Chest Pain RISK FACTORS Height: 5'3, Weight: 161 DIMENSIONS LVDd4.3 (3.8-5.7cm)LA (2D)3.2 (1.9-4.0cm)Aortic Root2.7 (2.0-3.7cm) LVDs3.0 (2.5-4.0cm)LA (MM) (1.9-4.0cm)Aortic Cusp Exc1.6 (1.5-2.0cm) EF (%) 55.0 (55-70%)Rt. Atrium3.2 (1.9-4.0cm)Asc. Aorta cm IVSd0.9 (0.7-1.1cm)RV (D) (1.8-2.4cm) PWd0.8 (0.7-1.1cm) Mitral Valve MitralMitral Stenosis E wave0.81m/sMV Mean GR.mmHg A wave0.69m/sMV Peak GR.mmHg E/A ratio1.22D MVAcm2 DECEL [id number] 1/2 Timems Aortic Valve Aortic ValveAortic Stenosis V10.96m/Partha Mean GR.3mmHg V21.26m/Partha Peak GR.6mmHg LVOT Diameter1.9 (1.8-2.4cm)Doppler AVA2.16cm2 Pulmonic Valve V20.92m/s Tricuspid Valve TR Velocity1.74m/s [id number] Other Information Quality : Technically LimitedRhythm : Technically limited study due to pt had recent shoulder surgery and unable to turn on side Conclusion LVEF 55-60%, mild LVH, RV size and function normal Valved not well visualized, but likely grossly normal
== END 2025-05-17 15:43 | disposition home or self-care (01) | DRG 203 ==
LOC: ER 17:31 → OVERFLOW 23:43 → TELE-EAST 05-16 15:17
PROVIDERS: ADMIT Student in an Organized Health Care Education/Training Program; ATTEND Emergency Medicine
DX: R07.89 Other chest pain (principal); E11.65 Type 2 diabetes mellitus with hyperglycemia; M79.18 Myalgia, other site; E66.9 Obesity, unspecified; I10 Essential (primary) hypertension; K21.9 Gastro-esophageal reflux disease without esophagitis; E11.9 Type 2 diabetes mellitus without complications; F41.9 Anxiety disorder, unspecified; K59.01 Slow transit constipation; Z79.82 Long term (current) use of aspirin; Z88.0 Allergy status to penicillin; Z68.28 Body mass index [BMI] 28.0-28.9, adult
CPT/HCPCS: 36415; 71045; 71275; 80048; 80053; 80076; 80307; 81001; 82306; 82607; 82746; 82962; 83036; 83880; 84443; 84484; 85025; 85379; 93005; 93306; 96372; 99291; G0378; J1815; J1885

== ENCOUNTER 2025-08-02 21:51 | Inpatient (IN) | payer MEDICAID ==
[~2025-08-02] VITALS: Ht 152.4 cm; Wt 75.1 kg
[~2025-08-02 21:51] MED LIST changes: +ATOR20TA50 PO; -HYDR-4798 PO; -HYDR-4902 PO; -IBUP-1455 PO; -MECL-90 PO; -OMEP20TA PO
--- NOTE | 2025-08-02 22:32 | DVH ---
CLINICAL HISTORY: Epigastric pain TECHNIQUE: Single view of the chest was obtained. COMPARISON: XY CHEST XRAY 1 VIEW on DOS: 05/17/25, XR CHEST 2 VIEW on DOS: 04/12/25, XR CHEST 1 VIEW on DOS: 12/02/24, XY CHEST PORTABLE on DOS: 10/14/24, CR CHEST 2 VIEW on DOS: 01/12/24 FINDINGS: The heart size and pulmonary vasculature are normal. The lungs are clear. IMPRESSION: NO ACUTE CARDIOPULMONARY PROCESS.
[2025-08-02 22:33] LABS: Chloride 104 mmol/L (98-107); Sodium 142 mmol/L (136-145)
[2025-08-02 22:34] LABS: Anion Gap 11 (5-15); Calcium 9.3 mg/dL (8.7-10.4); Carbon Dioxide 27 mmol/L (20-31)
[2025-08-02 22:39] LABS: BUN/Creatinine Ratio 29.6 (10.0-20.0); Blood Urea Nitrogen 21 mg/dL (9-23); Glucose 84 mg/dL (74-106)
[2025-08-02 22:40] LABS: Lipase 39 U/L (12-53)
[2025-08-02 22:43] LABS: Potassium 3.2 mmol/L (3.5-5.1)
--- NOTE | 2025-08-02 22:49 | ED.PDOC ---
GI ASSESSMENT HPI Comments This is a 50 year-old female who presents to the ED with a chief complaint of LUQ abdominal pain with associated N, dizziness, substernal chest pain, and SOB as of X1 hour ago. Patient reports abdominal pain began spontaneously X3 hours ago, since worsening, with no alleviating factors. Patient reports chest pain as "pressure". Patient reports a Hx of stomach ulcers and suspects abdominal pain is due to unhealthy food consumption. Patient has no further complaints at this time and otherwise denies cough, hemopytisis, emesis, diarrhea, hematemesis, palpitations, or fever. REVIEW OF SYSTEMS: General: No fever, no chills, or fatigue HEENT: No sore throat, no earache, no congestion, no neck pain. Cardiac: Positive chest pain. No palpitations. Lungs: Positive shortness of breath, no cough. GI: Positive nausea, no vomiting, no diarrhea, no constipation, Positive abdominal pain : No dysuria, frequency, or urgency. No hematuria. Musculoskeletal: No joint pain , no joint swelling, no extremity edema. Skin: No rash, no itching. Neuro: No headache, Positive dizziness, no weakness EXAM: General: Awake, alert and oriented. No acute distress. Skin: Skin in warm, dry and intact. Appropriate color for ethnicity. HEENT: The head is normocephalic and atraumatic. Conjunctivae are clear without exudates or hemorrhage. Sclera is non-icteric. EOM are intact. No signs of nystagmus. Eyelids are normal in appearance without swelling or lesions. Oral mucosa is pink and moist Neck: The neck is supple with normal range of motion. No JVD. Cardiac: Heart rate and rhythm are normal. No murmurs, gallops, or rubs are auscultated. Respiratory: No signs of respiratory distress. Lung sounds are clear in all lobes bilaterally without rales, rhonchi, or wheezes. Abdominal: LUQ abdominal tenderness. Abdomen is soft, without distention. Bowel sounds are present and normoactive in all four quadrants. Extremities: Upper and lower extremities are atraumatic in appearance without deformity or edema. Neurological: The patient is awake, alert and oriented to person, place, and time with normal speech. Speech is clear. There is no facial asymmetry. Psychiatric: Appropriate mood and affect. Good judgement and insight Chief Complaint: Abdominal Pain Time Seen by MD: 22:25 Primary Care Provider: NAJMA Thurman Notes: Medications, Allergies Allergies: Coded Allergies: Diphenhydramine (Verified Allergy, Unknown, 02/10/20) Penicillins (Verified Allergy, Unknown, 02/10/20) Home Meds Active Scripts Atorvastatin Calcium (ATORVASTATIN CALCIUM) 20 Mg Tab, 1 TAB PO HS for 30 Days, #30 TAB 5 Refills Prov:MARCO BARKER 05/17/25 Sucralfate (CARAFATE SUSP) 1 Gm/10 Ml Ss, 10 ML PO BID for 30 Days, #600 ML 1 Refill Prov:MERYL WALKER MD 09/13/24 Pantoprazole Sodium Sesquihydr (Protonix) 40 Mg Tab, 40 MG PO BID, #60 TAB Prov:MERYL WALKER MD 09/13/24 Ondansetron (Zofran) 4 Mg Tab, 1 TAB PO Q8HR PRN, #15 TAB 0 Refills Prov:MATEUSZ ROCA 04/09/23 Reported Medications Omeprazole (Gnp Omeprazole) 20 Mg Tab, 2 TAB PO DAILY 08/03/25 Tramadol Hcl (Tramadol Hcl) 50 Mg Tab, 50 MG PO Q6HP, MG 09/11/24 Atorvastatin Calcium (Lipitor) 10 Mg Tab, 10 MG PO DAILY@DINNER, TAB 09/11/24 Ropinirole Hydrochloride (Ropinirole Hcl) 1 Mg Tab, 1 MG PO HS, TAB 09/11/24 Trazodone Hcl (Trazodone Hcl) 50 Mg Tab, 50 MG PO HS, MG 09/11/24 Information Source: Patient Mode of Arrival: Ambulatory Timing: Hours Duration: Since onset Prehospital treatment: None Severity: Moderate Recent Hx of: Ulcer Disease Pain Location: LUQ Associated sign and symptoms: Nausea, Abdominal Pain, Other (chest pain with SOB ) Past Medical History PAST MEDICAL HISTORY: Anxiety, Depression, DM, GERD, High Lipids, HTN Surgical History: Cholecystectomy, , 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 Was a procedure done?: No GI differential Dx Differential Diagnosis: Cholecystitis, Constipation, Gastritis/PUD, Gastroenteritis, Pancreatitis, UTI, Urolithiasis, Dehydration, Diabetes/ DKA, Food Poisoning, Bacterial, Parasitic, Viral X-Ray, Labs, Meds, VS Vital Signs Date Time Temp Pulse Resp B/P (MAP) Pulse Ox O2 Delivery O2 Flow Rate FiO2 08/03/25 04:47 108 18 168/82 08/03/25 04:46 108 18 168/82 (110) 98 08/03/25 01:27 98.5 101 16 162/94 (116) 99 98.5 08/02/25 22:02 101 08/02/25 21:54 98.3 110 18 153/77 98 98.3 Lab Test 08/03/25 01:23 08/03/25 01:10 08/02/25 23:19 08/02/25 22:17 Range/Units Urine Color Light-yellow Yellow Urine Clarity Clear Clear Urine pH 6.5 5.0-9.0 Urine Specific Jenner 1.028 1.001-1.035 Urine Protein Negative Negative Urine Ketones Negative Negative Urine Blood Negative Negative /uL Urine Nitrite Negative Negative Urine Bilirubin Negative Negative Urine Urobilinogen 2 H Negative mg/dL Urine Leukocyte Esterase Negative Negative /uL Urine RBC None seen 0 - 4 /hpf Urine Microscopic WBC < 1 0-5 /HPF Urine Squamous Epithelial Cells Few <5 /hpf Urine Bacteria None seen None Seen /hpf Urine Glucose Trace Normal mg/dL Urine Opiates Screen Pos NEGATIVE Urine Fentanyl Screen Neg NEGATIVE Urine Barbiturates Screen Neg NEGATIVE Urine Phencyclidine Screen Neg NEGATIVE Urine Amphetamines Screen Neg NEGATIVE Urine Benzodiazepines Screen Neg NEGATIVE Urine Cocaine Screen Neg NEGATIVE Urine Cannabinoids Screen Neg NEGATIVE Troponin I High Sensitivity 3 L 3 L 4 </=34 ng/L Amylase Level 50 30-118 U/L Plasma/Serum Blood Alcohol < 3.0 <10 mg/dL White Blood Count 6.7 4.4-10.8 10^3/uL Red Blood Count 4.93 4.0-5.20 10^6/uL Hemoglobin 13.2 12.2-16.2 g/dL Hematocrit 38.8 36.0-46.0 % Mean Corpuscular Volume 78.7 L 80.0-100.0 fL Mean Corpuscular Hemoglobin 26.8 L 28.0-32.0 pg Mean Corpuscular Hemoglobin Concent 34.1 32.0-36.0 g/dL Red Cell Distribution Width 14.1 11.8-14.3 % Platelet Count 220 140-450 10^3/uL Mean Platelet Volume 9.3 6.9-10.8 fL Neutrophils (%) (Auto) 56.3 37.0-80.0 % Lymphocytes (%) (Auto) 35.5 10.0-50.0 % Monocytes (%) (Auto) 5.7 0.0-12.0 % Eosinophils (%) (Auto) 2.0 0.0-7.0 % Basophils (%) (Auto) 0.5 0.0-2.0 % Neutrophils # (Auto) 3.7 1.6-8.6 10 ^3/uL Lymphocytes # (Auto) 2.4 0.4-5.4 10 ^3/uL Monocytes # (Auto) 0.4 0-1.3 10 ^3/uL Eosinophils # (Auto) 0.1 0-0.8 10 ^3/uL Basophils # (Auto) 0 0-0.2 10 ^3/uL Nucleated Red Blood Cells 0.0 % Sodium Level 142 136-145 mmol/L Potassium Level 3.2 L 3.5-5.1 mmol/L Chloride Level 104 98-107 mmol/L Carbon Dioxide Level 27 20-31 mmol/L Anion Gap 11 5-15 Blood Urea Nitrogen 21 9-23 mg/dL Creatinine 0.71 0.550-1.02 mg/dL Glomerular Filtration Rate Calc 105 >90 mL/min BUN/Creatinine Ratio 29.6 H 10.0-20.0 Serum Glucose 84 74-106 mg/dL Calcium Level 9.3 8.7-10.4 mg/dL Total Bilirubin 1.0 0.2-1.0 mg/dL Aspartate Amino Transferase (AST) 304 H 13-40 U/L Alanine Aminotransferase (ALT) 200 H 7-40 U/L Alkaline Phosphatase 241 H 46-116 U/L Lipase 39 12-53 U/L Current Medications Medications (Trade) Dose Ordered Sig/Ragini Route Start Time Stop Time Status Last Admin Morphine Sulfate 2 mg ONCE ONCE IV 08/03/25 04:00 08/03/25 04:01 DC 08/03/25 04:47 Ondansetron HCl (Zofran) 4 mg ONCE ONCE IV 08/03/25 04:00 08/03/25 04:01 DC 08/03/25 04:47 [place] [id number] Ph: [phone] DIAGNOSTIC IMAGING Diagnostic Imaging Report : [id number] Signed PATIENT: LUIS GROSSMAN FEEACCT: [id number] UNIT: [id number] : 1975 LOC: ER ROOM / BED: / AGE / SEX: 50 / F ADM STATUS: REG ER SERVICE 07 ORDERING PHYSICIAN: MITCHEL SHAH MD PROCEDURE(s): CXR1 - CHEST XRAY 1 VIEW REASON: Epigastric pain ORDER NUMBER(s): [id number], ACCESSION NUMBER(s): [id number] CLINICAL HISTORY: Epigastric pain TECHNIQUE: Single view of the chest was obtained. COMPARISON: XY CHEST XRAY 1 VIEW on DOS: 05/17/25, XR CHEST 2 VIEW on DOS: 04/12/25, XR CHEST 1 VIEW on DOS: 12/02/24, XY CHEST PORTABLE on DOS: 10/14/24, CR CHEST 2 VIEW on DOS: 01/12/24 FINDINGS: The heart size and pulmonary vasculature are normal. The lungs are clear. IMPRESSION: NO ACUTE CARDIOPULMONARY PROCESS. ATED BY: JAN VALENZUELA MD DICTATED DATE/TIME: 08/02/252228 SIGNED BY: JAN VALENZUELA MD SIGNED DATE/TIME: 08/02/252228 CC: [address] [address] Ph: [phone] DIAGNOSTIC IMAGING Diagnostic Imaging Report : [id number] Signed PATIENT: LUIS GROSSMAN FEEACCT: [id number] UNIT: [id number] : 1975 LOC: ER ROOM / BED: / AGE / SEX: 50 / F ADM STATUS: REG ER SERVICE 8 ORDERING PHYSICIAN: MITCHEL SHAH MD PROCEDURE(s): ABPLIV - CT AB PEL WITH IV CON ONLY REASON: Epigastric pain, elevated LFTs ORDER NUMBER(s): [id number], ACCESSION NUMBER(s): [id number] Exam: CT CT AB PEL WITH IV CON ONLY History: Epigastric pain, elevated LFTs COMPARISON: CT CHEST/AB/PL W CON- IV ONLY on DOS: 07/11/22 Technique: Multidetector spiral CT of the abdomen and pelvis was performed from lung bases to pubic symphysis. Intravenous contrast was administered during this examination. Portal venous imaging was obtained. Axial, coronal and sagittal multiplanar reformats were performed by the technologist on a separate workstation. Radiation Dose : 1. Abdomen/Pelvis: CTDIvol 9.12mGy, DLP 547.84 mGy*cm. Findings: Lower Chest: No acute findings. Liver: Diffuse hypoenhancement. Length measures 19.4 cm. Gallbladder and Biliary Tree: Cholecystectomy changes. Pancreas: Mild atrophy. Spleen: Unremarkable Adrenal Glands: Unremarkable Kidneys: Normal. Bladder: Decompressed without evident abnormality. Pelvic Organs: Unremarkable Bowel: Normal caliber without wall thickening. No evidence of appendicitis. Vasculature: Unremarkable. Lymphadenopathy: No evident adenopathy. Peritoneum: No ascites, free air, or fluid collection. Abdominal Wall: Periumbilical subcutaneous stranding likely related to medication injection. Musculoskeletal: No acute abnormality. IMPRESSION: 1. Borderline hepatomegaly with probable steatosis. 2. Prior cholecystectomy without evidence of complication. 3. Other chronic and incidental findings above. Radiation optimization: All CT scans at this facility use at least one of these dose optimization techniques: automated exposure control mA and/or kV adjustment per patient size (includes targeted exams where dose is matched to clinical indication) or iterative reconstruction. ATED BY: YORDY VINCENT MD DICTATED DATE/TIME: 08/03/25403 SIGNED BY: YORDY VINCENT MD SIGNED DATE/TIME: 08/03/25403 CC: Images Reviewed?: Images reviewed and evaluated by me Time of 1ST Reevaluation: 22:43 Reevaluation 1ST: Unchanged Patient Education/Counseling: Diagnosis, Treatment Family Education/Counseling: No Family Present Medical Screening: No EMC Exist At This Time SEPSIS Sepsis Screen Date sepsis recognized/suspect: Aug 02, 2025 Time Sepsis recognized/suspect: 2153 Recent Procedure: No On Antibiotic Therapy: No Respiratory Rate >20: No Heart Rate >90: Yes Temp<36 C (96.8 F) or >38.3 C: No SBP <90 or MAP <65 mmHG: No New Acute Mental Status Change: No Is the patient on CPAP, BIPAP,: No Physician Orders Electrocardigram (08/02/25 22:08) Chest Xray 1 View (08/02/25 22:08) Electrocardigram (08/02/25 22:08) Electrocardigram (08/02/25 23:08) Electrocardigram (08/03/25 01:08) Ct Ab Pel With Iv Con Only (08/03/25 01:19) Saline Lock (08/03/25 01:19) LIVER (08/03/25 03:17) Vital Signs Date Time Temp Pulse Resp B/P (MAP) Pulse Ox O2 Delivery O2 Flow Rate FiO2 08/03/25 04:47 108 18 168/82 08/03/25 04:46 108 18 168/82 (110) 98 08/03/25 01:27 98.5 101 16 162/94 (116) 99 98.5 08/02/25 22:02 101 08/02/25 21:54 98.3 110 18 153/77 98 98.3 Laboratory Tests Test 08/02/25 22:17 White Blood Count 6.7 10^3/uL (4.4-10.8) Departure 1 Departure Time of Disposition: 05:49 Impression: Primary Impression: Intractable abdominal pain Additional Impression: Elevated liver function tests Disposition: ADMITTED INPATIENT Condition: Stable Comments Patient admitted to hospitalist service for further treatment, evaluation and monitoring. Critical Care Note Critical Care Time?: No Stability Stability form required: No Heart Score Heart Score: Heart Score Response (Comments) Value History Slightly Suspicious 0 EKG N/A 0 Age 45-64 1 Risk Factors No known risk factors 0 Troponin N/A 0 Total 1 I personally scribed for MITCHEL SHAH MD ([email or web address]) on 08/02/25 at 22:49. Electronically submitted by Elle Girard ([employer]). I personally scribed for MITCHEL SHAH MD ([employer]) on 08/02/25 at 22:50. Electronically submitted by Elle Girard ([employer]). I personally scribed for MITCHEL SHAH MD ([employer]) on 08/02/25 at 23:39. Electronically submitted by Elle Girard ([employer]). MITCHEL SHAH MD Aug 02, 2025 22:49
[2025-08-02 23:01] LABS: Hematocrit 38.8 % (36.0-46.0); Hemoglobin 13.2 g/dL (12.2-16.2); Mean Corpuscular Hemoglobin 26.8 pg (28.0-32.0); Mean Corpuscular Volume 78.7 fL (80.0-100.0); Nucleated Red Blood Cells % 0.0 %
[2025-08-02 23:21] LABS: Bilirubin, Total 1.0 mg/dL (0.2-1.0)
[2025-08-02 23:35] LABS: Alanine Aminotransferase 200.0 U/L (7-40); Alkaline Phosphatase 241.0 U/L (46-116)
[2025-08-03] MEDS: MAALOX PLUS or MAALOX 30 ML PO ONE (01:40)
[2025-08-03] MEDS: LIDOCAINE VISCOUS 2% 15ML UD PO ONE (01:40)
[2025-08-03 01:44] LABS: Urine Protein, UAD Negative (Negative)
--- NOTE | 2025-08-03 04:07 | DVH ---
Exam: CT CT AB PEL WITH IV CON ONLY History: Epigastric pain, elevated LFTs COMPARISON: CT CHEST/AB/PL W CON- IV ONLY on DOS: 07/11/22 Technique: Multidetector spiral CT of the abdomen and pelvis was performed from lung bases to pubic s ymphysis. Intravenous contrast was administered during this examination. Portal venous imaging was o btained. Axial, coronal and sagittal multiplanar reformats were performed by the technologist on a Fwd: Power workstation. Radiation Dose : 1. Abdomen/Pelvis: CTDIvol 9.12mGy, DLP 547.84 mGy*cm. Findings: Lower Chest: No acute findings. Liver: Diffuse hypoenhancement. Length measures 19.4 cm. Gallbladder and Biliary Tree: Cholecystectomy changes. Pancreas: Mild atrophy. Spleen: Unremarkable Adrenal Glands: Unremarkable Kidneys: Normal. Bladder: Decompressed without evident abnormality. Pelvic Organs: Unremarkable Bowel: Normal caliber without wall thickening. No evidence of appendicitis. Vasculature: Unremarkable. Lymphadenopathy: No evident adenopathy. Peritoneum: No ascites, free air, or fluid collection. Abdominal Wall: Periumbilical subcutaneous stranding likely related to medication injection. Musculoskeletal: No acute abnormality. IMPRESSION: 1. Borderline hepatomegaly with probable steatosis. 2. Prior cholecystectomy without evidence of complication. 3. Other chronic and incidental findings above. Radiation optimization: All CT scans at this facility use at least one of these dose optimization ni hniques: automated exposure control mA and/or kV adjustment per patient size (includes targeted exam s where dose is matched to clinical indication) or iterative reconstruction.
[2025-08-03] MEDS: MORPHINE SULFATE INJ 2 MG/ml SYRG IV ONE (04:47)
[2025-08-03] MEDS: ONDANSETRON HCL 4 MG/2 ML VIAL IV ONE (04:47)
[2025-08-03] MEDS: IOHEXOL 300 MG/ML 100ML BOTTLE IJ ONE (05:32)
--- NOTE | 2025-08-03 06:16 | ECG ---
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
--- NOTE | 2025-08-03 06:48 | DVH ---
INDICATION: epigastric pain elevated lfts TECHNIQUE: Multiple real-time sonographic images were obtained of the right upper quadrant. COMPARISON: None FINDINGS: The liver demonstrates diffusely increased echotexture without focal mass lesions. The live r measures 15.8 cm. Normal hepatopetal portal flow identified. No evidence of pleural effusion or ab dominal ascites. There is no intrahepatic or extrahepatic ductal dilatation. The common duct measures 0.9 cm. The gallbladder is surgically absent. The right kidney measures 8.5 cm. The right kidney is normal in contour, size, and shape. The echogen icity is normal. There is no hydronephrosis. The pancreas is not well visualized due to overlying bowel gas. IMPRESSION: 1. Hepatic steatosis. 2. Cholecystectomy.
--- NOTE | 2025-08-03 08:10 | DVHHP2 ---
History of Present Illness Reason for Visit: Abdominal pain with nausea and vomiting History of Present Illness Davina Aviles is a 50-year-old female with past medical history of anxiety, depression, diabetes, GERD, hyperlipidemia, cholecystectomy, , tubal ligation, bilateral carpal tunnel surgery, right shoulder rotator cuff repair, and left knee surgery who presents to the ED with abdominal pain, nausea, and vomiting that started yesterday. Patient endorses that the epigastric pain is 7/10 aching and constant. She reported that the epigastric pain radiated to her chest. She states that there are no triggering or alleviating factors. She reports that she ate a hamburger yesterday that was [place] cooked. She denies recent travels, recent sick contacts, recent ingestion of spoiled food, recent trauma or injury, fever, chills, shortness of breath, diarrhea, or urinary symptoms. Patient denies that she has a history of hypertension. Patient reports that she ran out of her atorvastatin and was not taking it due to not having medications. Patient reports that she is compliant with her insulin. Cardiovascular: hyperipidemia GI: GERD Psych: Anxiety, Depression Endocrine: Diabetes Past Surgical History: Cholecystectomy, , Other (Bilateral carpal tunnel surgery, right shoulder rotator cuff repair, and left knee surgery) Family History: None Smoke: No ALCOHOL: none Lives: with Family Domestic Violence: Neg Review of Systems Gastrointestinal: Nausea, Vomiting, Abdominal Pain Allergies: Coded Allergies: Diphenhydramine (Verified Allergy, Unknown, 02/10/20) Penicillins (Verified Allergy, Unknown, 02/10/20) Exam Vital Signs Vital Signs Date Time Temp Pulse Resp B/P (MAP) Pulse Ox O2 Delivery O2 Flow Rate FiO2 08/03/25 04:47 108 18 168/82 08/03/25 04:46 98 08/03/25 01:27 98.5 98.5 General Appearance: Alert, Oriented X3, Cooperative, No acute distress HEENT: Atraumatic, PERRLA, EOMI, Mucous membr. moist/pink Respiratory: Clear to auscultation, Normal air movement Cardiovascular: Normal S1, Normal S2, No murmurs Abdominal: Normal bowel sounds, Soft Extremities: No clubbing, No cyanosis, No edema, Normal pulses Skin: No significant lesion Neuro: Normal gait, Normal speech, Strength at 5/5 X4 ext, Normal tone, Sensation intact Psych/Mental Status: Mental status NL, Mood NL Labs/Xrays Labs Test 08/03/25 01:23 08/03/25 01:10 08/02/25 22:17 Range/Units Urine Color Light-yellow Yellow Urine Clarity Clear Clear Urine pH 6.5 5.0-9.0 Urine Specific [place] 1.028 1.001-1.035 Urine Protein Negative Negative Urine Ketones Negative Negative Urine Blood Negative Negative /uL Urine Nitrite Negative Negative Urine Bilirubin Negative Negative Urine Urobilinogen 2 H Negative mg/dL Urine Leukocyte Esterase Negative Negative /uL Urine RBC None seen 0 - 4 /hpf Urine Microscopic WBC < 1 0-5 /HPF Urine Squamous Epithelial Cells Few <5 /hpf Urine Bacteria None seen None Seen /hpf Urine Glucose Trace Normal mg/dL Troponin I High Sensitivity 3 L </=34 ng/L Amylase Level 50 30-118 U/L White Blood Count 6.7 4.4-10.8 10^3/uL Red Blood Count 4.93 4.0-5.20 10^6/uL Hemoglobin 13.2 12.2-16.2 g/dL Hematocrit 38.8 36.0-46.0 % Mean Corpuscular Volume 78.7 L 80.0-100.0 fL Mean Corpuscular Hemoglobin 26.8 L 28.0-32.0 pg Mean Corpuscular Hemoglobin Concent 34.1 32.0-36.0 g/dL Red Cell Distribution Width 14.1 11.8-14.3 % Platelet Count 220 140-450 10^3/uL Mean Platelet Volume 9.3 6.9-10.8 fL Neutrophils (%) (Auto) 56.3 37.0-80.0 % Lymphocytes (%) (Auto) 35.5 10.0-50.0 % Monocytes (%) (Auto) 5.7 0.0-12.0 % Eosinophils (%) (Auto) 2.0 0.0-7.0 % Basophils (%) (Auto) 0.5 0.0-2.0 % Neutrophils # (Auto) 3.7 1.6-8.6 10 ^3/uL Lymphocytes # (Auto) 2.4 0.4-5.4 10 ^3/uL Monocytes # (Auto) 0.4 0-1.3 10 ^3/uL Eosinophils # (Auto) 0.1 0-0.8 10 ^3/uL Basophils # (Auto) 0 0-0.2 10 ^3/uL Nucleated Red Blood Cells 0.0 % Sodium Level 142 136-145 mmol/L Potassium Level 3.2 L 3.5-5.1 mmol/L Chloride Level 104 98-107 mmol/L Carbon Dioxide Level 27 20-31 mmol/L Anion Gap 11 5-15 Blood Urea Nitrogen 21 9-23 mg/dL Creatinine 0.71 0.550-1.02 mg/dL Glomerular Filtration Rate Calc 105 >90 mL/min BUN/Creatinine Ratio 29.6 H 10.0-20.0 Serum Glucose 84 74-106 mg/dL Calcium Level 9.3 8.7-10.4 mg/dL Total Bilirubin 1.0 0.2-1.0 mg/dL Aspartate Amino Transferase (AST) 304 H 13-40 U/L Alanine Aminotransferase (ALT) 200 H 7-40 U/L Alkaline Phosphatase 241 H 46-116 U/L Lipase 39 12-53 U/L INDICATION: epigastric pain elevated lfts TECHNIQUE: Multiple real-time sonographic images were obtained of the right upp er quadrant. COMPARISON: None FINDINGS: The liver demonstrates diffusely increased echotexture without focal mass lesions. The liver measures 15.8 cm. Normal hepatopetal portal flow identified. No evidence of pleural effusion or abdominal ascites. There is no intrahepatic or extrahepatic ductal dilatation. The common duct measures 0.9 cm. The gallbladder is surgically absent. The right kidney measures 8.5 cm. The right kidney is normal in contour, size, and shape. The echogenicity is normal. There is no hydronephrosis. The pancreas is not well visualized due to overlying bowel gas. IMPRESSION: 1. Hepatic steatosis. 2. Cholecystectomy. Exam: CT CT AB PEL WITH IV CON ONLY History: Epigastric pain, elevated LFTs COMPARISON: CT CHEST/AB/PL W CON- IV ONLY on DOS: 07/11/22 Technique: Multidetector spiral CT of the abdomen and pelvis was performed from lung bases to pubic symphysis. Intravenous contrast was administered during this examination. Portal venous imaging was obtained. Axial, coronal and sagittal multiplanar reformats were performed by the technologist on a separate workstation. Radiation Dose : 1. Abdomen/Pelvis: CTDIvol 9.12mGy, DLP 547.84 mGy*cm. Findings: Lower Chest: No acute findings. Liver: Diffuse hypoenhancement. Length measures 19.4 cm. Gallbladder and Biliary Tree: Cholecystectomy changes. Pancreas: Mild atrophy. Spleen: Unremarkable Adrenal Glands: Unremarkable Kidneys: Normal. Bladder: Decompressed without evident abnormality. Pelvic Organs: Unremarkable Bowel: Normal caliber without wall thickening. No evidence of appendicitis. Vasculature: Unremarkable. Lymphadenopathy: No evident adenopathy. Peritoneum: No ascites, free air, or fluid collection. Abdominal Wall: Periumbilical subcutaneous stranding likely related to medication injection. Musculoskeletal: No acute abnormality. IMPRESSION: 1. Borderline hepatomegaly with probable steatosis. 2. Prior cholecystectomy without evidence of complication. 3. Other chronic and incidental findings above. CLINICAL HISTORY: Epigastric pain TECHNIQUE: Single view of the chest was obtained. COMPARISON: XY CHEST XRAY 1 VIEW on DOS: 05/17/25, XR CHEST 2 VIEW on DOS: 04/12/25, XR CHEST 1 VIEW on DOS: 12/02/24, XY CHEST PORTABLE on DOS: 10/14/24, CR CHEST 2 VIEW on DOS: 01/12/24 FINDINGS: The heart size and pulmonary vasculature are normal. The lungs are clear. IMPRESSION: NO ACUTE CARDIOPULMONARY PROCESS. SEPSIS Sepsis Screen Date sepsis recognized/suspect: Aug 02, 2025 Time Sepsis recognized/suspect: 2153 Recent Procedure: No On Antibiotic Therapy: No Respiratory Rate >20: No Heart Rate >90: Yes Temp<36 C (96.8 F) or >38.3 C: No SBP <90 or MAP <65 mmHG: No New Acute Mental Status Change: No Is the patient on CPAP, BIPAP,: No Physician Orders Ct Ab Pel With Iv Con Only (08/03/25 01:19) Saline Lock (08/03/25 01:19) LIVER (08/03/25 03:17) Vital Signs Date Time Temp Pulse Resp B/P (MAP) Pulse Ox O2 Delivery O2 Flow Rate FiO2 08/03/25 04:47 108 18 168/82 08/03/25 04:46 108 18 168/82 (110) 98 08/03/25 01:27 98.5 101 16 162/94 (116) 99 98.5 Laboratory Tests Test 08/02/25 22:17 White Blood Count 6.7 10^3/uL (4.4-10.8) Medications Medications Dose Ordered Sig/Ragini Route Start Time Stop Time Status Last Admin Dose Admin Al Hydrox/Mg Hydrox/Simethicone 30 ml ONCE ONCE PO 08/02/25 22:15 08/02/25 22:16 DC 08/03/25 01:40 30 ML Lidocaine HCl 10 ml ONCE ONCE PO 08/02/25 22:15 08/02/25 22:16 DC 08/03/25 01:40 10 ML Morphine Sulfate 2 mg ONCE ONCE IV 08/03/25 04:00 08/03/25 04:01 DC 08/03/25 04:47 2 MG Ondansetron HCl 4 mg ONCE ONCE IV 08/03/25 04:00 08/03/25 04:01 DC 08/03/25 04:47 4 MG Assessment/Plan Assessment/Plan Assessment Intractable abdominal pain with nausea and vomiting ? Gastroenteritis Transaminitis Obesity Hypokalemia Hepatic steatosis History of cholecystectomy History of History of tubal ligation History of anxiety History of depression History of diabetes History of GERD History of hyperlipidemia ? Hypertension patient denies History of bilateral carpal tunnel surgery History of right shoulder rotator cuff repair History of left knee surgery Plan Med surge admit Antiemetics Pain management Antihypertensives Hemoglobin A1c ISS and Accu-Cheks Replete lytes Lipase noted Amylase Troponins noted UA UDS IV fluids NPO until pain resolves DVT prophylaxis-not indicated patient ambulating PUD prophylaxis-PPIs Discussed plan of care with patient and nurse Counseled patient on lifestyle modifications, diet, and exercise [id number] Preventive counseling healthy eating habits, physical activity, and regular checkups Plan discussed with: Patient Date of Service: Aug 03, 2025 Billing Provider: MARY MELVIN Common Visit Codes: [id number] INP/OBS CARE (HIGH) Secondary Visit Codes: [id number] COUNSELING IND MARY MELVIN Aug 03, 2025 08:10
[2025-08-03] MEDS: LACTATED RINGER'S 1,000 ML IV SCH (08:15)
[2025-08-03] MEDS ORDERED: ACETAMINOPHEN 325 MG TAB PO PRN (08:15)
[2025-08-03] MEDS ORDERED: HYDROmorphone HCL 2 MG/ML VL/or syr IV PRN (08:15)
[2025-08-03] MEDS ORDERED: OMEP20TA PO (09:13)
[2025-08-03] MEDS ORDERED: DEXTROSE (50%) 50ML SYRG IV PRN (09:15)
[2025-08-03] MEDS ORDERED: hydrALAZINE HCL 20 MG/ML VL IV PRN (09:30)
[2025-08-03] MEDS: POTASSIUM CHL 20 Meq TABLET PO ONE (10:07)
[2025-08-03] MEDS: MORPHINE SULFATE INJ 2 MG/ml SYRG ONE ×2 (10:09→10:10)
[2025-08-03] MEDS: ONDANSETRON HCL 4 MG/2 ML VIAL IV PRN (10:11)
[2025-08-03] MEDS: ONDANSETRON HCL 4 MG/2 ML VIAL ONE (10:11)
[2025-08-03] MEDS: ACCU-CHEK COMFORT CURVE STRIP VI SCH (11:11)
[2025-08-03] MEDS: InsuLIN REG 1unit/0.01ml Soln (100units/ml) SC SCH (11:12)
[2025-08-03 13:00] LABS: Amphetamine Screen, Urine Neg (NEGATIVE); Barbiturate Scree,Urine Neg (NEGATIVE); Benzodiazephine Screen, Urine Neg (NEGATIVE); Cannabinoid Screen, Urine Neg (NEGATIVE); Cocaine Screen, Urine Neg (NEGATIVE); Opiate Scree,Urine Pos (NEGATIVE); Phencyclidine Screen, Urine Neg (NEGATIVE)
[2025-08-03 17:22] VITALS: BP 121/99; PULSE 79; RESP 18; TEMP 98.1; O2SAT 99
[2025-08-03 17:30] VITALS: BP 122/66; PULSE 87; RESP 18; TEMP 98.3; O2SAT 99
[2025-08-03] MEDS: MORPHINE SULFATE INJ 2 MG/ml SYRG IV PRN (17:42)
[2025-08-03 20:00] VITALS: BP 121/99; PULSE 79; RESP 18; TEMP 98.1; O2SAT 99
[2025-08-03] MEDS ORDERED: ATORVASTATIN 20 MG TAB PO SCH (22:00)
[2025-08-03 22:39] VITALS: BP 143/74; PULSE 85; RESP 16; TEMP 97.9; O2SAT 98
[2025-08-04] VITALS (8 sets, daily range): BP systolic 111–132; BP diastolic 65–86; PULSE 74–88; RESP 15–17; TEMP 97.7–98.5; O2SAT 97–100
[2025-08-04 07:36] LABS: Hematocrit 40.8 % (36.0-46.0); Hemoglobin 13.7 g/dL (12.2-16.2); Mean Corpuscular Hemoglobin 26.8 pg (28.0-32.0); Mean Corpuscular Volume 79.5 fL (80.0-100.0); Nucleated Red Blood Cells % 0.0 %
[2025-08-04 07:52] LABS: Albumin 4.5 g/dL (3.2-4.8); Anion Gap 10 (5-15); BUN/Creatinine Ratio 13.1 (10.0-20.0); Calcium 8.9 mg/dL (8.7-10.4); Carbon Dioxide 22 mmol/L (20-31); Chloride 105 mmol/L (98-107); Potassium 3.9 mmol/L (3.5-5.1); Sodium 137 mmol/L (136-145); Total Protein 7.4 g/dL (5.7-8.2)
[2025-08-04 07:56] LABS: Alanine Aminotransferase 354 U/L (7-40); Alkaline Phosphatase 265 U/L (46-116); Bilirubin, Total 1.6 mg/dL (0.2-1.0); Blood Urea Nitrogen 8 mg/dL (9-23); Glucose 154 mg/dL (74-106)
[2025-08-04] MEDS: MORPHINE SULFATE INJ 2 MG/ml SYRG IV PRN (10:56)
[2025-08-04] MEDS ORDERED: DEXTROSE (50%) 50ML SYRG IV PRN (15:30)
--- NOTE | 2025-08-04 15:30 | DVHPN2 ---
Subjective Patient continues to have epigastric and right upper quadrant pain Reviewed: Care Plan, Labs, Medications Changes from previous H/P or p: No Changes General: Per HPI Gastrointestinal: Nausea, Vomiting, Abdominal Pain Objective Vitals Vital Signs Date Time Temp Pulse Resp B/P (MAP) Pulse Ox O2 Delivery O2 Flow Rate FiO2 08/04/25 13:00 98.0 76 15 117/74 (88) 97 98.0 08/04/25 08:00 Room Air* 0 21 Intake/Output Intake and Output 08/04/25 07:00 Intake Total 0 ml Balance 0 ml Intake Oral 0 ml # Voids 2 General Appearance: Alert, Oriented X3, Cooperative, No acute distress HEENT: Atraumatic, PERRLA Cardiovascular: Normal S1, Normal S2 Musculoskeletal: Normal sensory function, Normal motor function Skin: Dry, Intact Psych/Mental Status: Mental status NL, Mood NL Medications Current Medications Medications Dose Ordered Sig/Ragini Route Start Time Stop Time Status Last Admin Dose Admin Acetaminophen/ Hydrocodone Bitart 1 tab Q4HP PRN PO 08/03/25 08:15 Ondansetron HCl 4 mg Q4HP PRN IV 08/03/25 08:15 08/03/25 17:42 4 MG Acetaminophen 650 mg Q6HP PRN PO 08/03/25 08:15 Lactated Ringer's 1,000 ml @ 125 mls/hr Q8H IV 08/03/25 08:15 08/04/25 09:51 125 MLS/HR Diagnostic Test (Pha) 1 strip Q6HR 08/03/25 12:00 08/04/25 12:04 1 STRIP Insulin Human Regular Q6HR SC 08/03/25 12:00 08/04/25 11:47 2 UNITS Dextrose 50 ml UD PRN IV 08/03/25 09:15 Atorvastatin Calcium 20 mg HS PO 08/03/25 22:00 Hold Trazodone HCl 50 mg HS PO 08/03/25 22:00 Patient Own Medication 1 mg HS PO 08/03/25 22:00 Hydralazine HCl 10 mg Q6HP PRN IV 08/03/25 09:30 Morphine Sulfate 2 mg Q4HPRN PRN IV 08/04/25 10:45 08/04/25 10:56 2 MG Laboratory Results Laboratory Tests 08/04/25 07:01 Chemistry Test 08/04/25 07:01 Albumin 4.5 g/dL (3.2-4.8) Calcium Level 8.9 mg/dL (8.7-10.4) Total Protein 7.4 g/dL (5.7-8.2) LFT Test 08/04/25 07:01 Alanine Aminotransferase (ALT) 354 U/L (7-40) H Alkaline Phosphatase 265 U/L (46-116) H Aspartate Amino Transferase (AST) 180 U/L (13-40) H Total Bilirubin 1.6 mg/dL (0.2-1.0) H Urinalysis Test 08/03/25 01:23 Urine Color Light-yellow (Yellow) Urine Clarity Clear (Clear) Urine pH 6.5 (5.0-9.0) Urine Specific [place] 1.028 (1.001-1.035) Urine Protein Negative (Negative) Urine Ketones Negative (Negative) Urine Blood Negative /uL (Negative) Urine Nitrite Negative (Negative) Urine Bilirubin Negative (Negative) Urine Urobilinogen 2 mg/dL (Negative) H Urine Leukocyte Esterase Negative /uL (Negative) Urine RBC None seen /hpf (0 - 4) Urine Microscopic WBC < 1 /HPF (0-5) Urine Squamous Epithelial Cells Few /hpf (<5) Urine Bacteria None seen /hpf (None Seen) Urine Glucose Trace mg/dL (Normal) Labs and/or images reviewed: Labs reviewed by me, Image(s) reviewed by me Assessment/Plan Assessment/Plan Impression: -transaminitis, rule out acute hepatitis -history of hepatitis-C -GERD -obesity -diabetes mellitus Plan: -MRI of the liver -start clear liquid diet -PPI -check CA 19 nine, alpha fetoprotein level -regular insulin sliding scale -repeat labs in a.m. Total time spent with patient discussing and formulating plan of care: 35 minutes. This medical document was created using an electronic medical record system with [employer] dictation system. Although this document has been carefully reviewed, there may still be some phonetic and typographical errors. These areas are purely typographical due to imperfections of the software programs, and do not reflect any compromise in the patient's medical care. Plan discussed with: Patient, Other (RN) My Orders Orders - IESHA WEEKS NP Procedure Category Date Status Time Morphine Sulfate PHA 08/04/25 In Process Injection 10:45 Mri Abdomen No MRI 08/04/25 Logged Contrast 15:21 Date of Service: Aug 04, 2025 Billing Provider: IESHA WEEKS NP Common Visit Codes: [id number] INP/OBS CARE(HIGH) IESHA WEEKS NP Aug 04, 2025 15:29
[2025-08-04 16:22] LABS: Hepatitis B Surface Antigen Negative (Negative)
[2025-08-04 16:51] LABS: Hepatitis C Antibody Reactive (Negative)
[2025-08-04] MEDS: ACCU-CHEK COMFORT CURVE STRIP VI SCH (17:33)
[2025-08-04] MEDS: InsuLIN REG 1unit/0.01ml Soln (100units/ml) SC SCH (17:42)
[2025-08-05] VITALS (8 sets, daily range): BP systolic 104–118; BP diastolic 56–70; PULSE 74–82; RESP 16–18; TEMP 97.9–98.6; O2SAT 96–99
--- NOTE | 2025-08-05 09:24 | DVH ---
CLINICAL HISTORY: elevated LFTs. MRI of liver please TECHNIQUE: MRI of the abdomen was performed with and without IV contrast. COMPARISON: CT CT AB PEL WITH IV CON ONLY on DOS: 08/03/25, CT CT AB PEL WO CON-NO ORAL OR IV on DOS: 09/10/24, XY KUB ABDOMEN SINGLE VIEW on DOS: 09/10/24, CT CHEST/AB/PL W CON- IV ONLY on DOS: 07/11/22, CT ABD PELVIS WO CONTRAST on DOS: 04/30/22 FINDINGS: The spleen, pancreas, adrenal glands, and kidneys are unremarkable. The gallbladder is absent. The liver is normal in contour with mild hepatic steatosis. No hypervascular or hypovascular mass is seen. The biliary ductal system is normal in caliber. The abdominal aorta is normal in course and caliber. There is no free intraperitoneal fluid. No enlar ged lymph node is seen. There is a moderate amount of stool in the colon. IMPRESSION: Mild hepatic steatosis. Cholecystectomy. Constipation.
[2025-08-05] MEDS: PANTOPRAZOLE 40 MG/10 ML VIAL INJ IV SCH ×2 (10:22→22:50)
[2025-08-05 11:04] LABS: Albumin 3.9 g/dL (3.2-4.8); Anion Gap 11 (5-15); BUN/Creatinine Ratio 10.0 (10.0-20.0); Bilirubin, Total 0.9 mg/dL (0.2-1.0); Carbon Dioxide 22 mmol/L (20-31); Chloride 105 mmol/L (98-107); Potassium 4.2 mmol/L (3.5-5.1); Sodium 138 mmol/L (136-145); Total Protein 6.2 g/dL (5.7-8.2)
[2025-08-05 11:09] LABS: Alanine Aminotransferase 197 U/L (7-40); Alkaline Phosphatase 202 U/L (46-116); Blood Urea Nitrogen 7 mg/dL (9-23); Calcium 8.6 mg/dL (8.7-10.4); Glucose 278 mg/dL (74-106)
[2025-08-05] MEDS: LACTATED RINGER'S 1,000 ML IV SCH (14:30)
--- NOTE | 2025-08-05 14:32 | DVHPN2 ---
Subjective Patient continues to have epigastric and right upper quadrant pain Reviewed: Care Plan, Labs, Medications Changes from previous H/P or p: No Changes General: Per HPI Gastrointestinal: Nausea, Vomiting, Abdominal Pain Objective Vitals Vital Signs Date Time Temp Pulse Resp B/P (MAP) Pulse Ox O2 Delivery O2 Flow Rate FiO2 08/05/25 13:00 98.6 75 18 112/63 (79) 96 98.6 08/05/25 08:00 Room Air* 0 21 Intake/Output Intake and Output 08/05/25 07:00 Intake Total 694 ml Balance 694 ml Intake Oral 694 ml # Voids 11 # Bowel Movements 1 General Appearance: Alert, Oriented X3, Cooperative, No acute distress HEENT: Atraumatic, PERRLA Cardiovascular: Normal S1, Normal S2 Musculoskeletal: Normal sensory function, Normal motor function Skin: Dry, Intact Psych/Mental Status: Mental status NL, Mood NL Medications Current Medications Medications Dose Ordered Sig/Ragini Route Start Time Stop Time Status Last Admin Dose Admin Acetaminophen/ Hydrocodone Bitart 1 tab Q4HP PRN PO 08/03/25 08:15 Ondansetron HCl 4 mg Q4HP PRN IV 08/03/25 08:15 08/05/25 10:23 4 MG Acetaminophen 650 mg Q6HP PRN PO 08/03/25 08:15 Trazodone HCl 50 mg HS PO 08/03/25 22:00 08/04/25 22:46 50 MG Patient Own Medication 1 mg HS PO 08/03/25 22:00 Hydralazine HCl 10 mg Q6HP PRN IV 08/03/25 09:30 Morphine Sulfate 2 mg Q4HPRN PRN IV 08/04/25 10:45 08/05/25 10:23 2 MG Pantoprazole Sodium 40 mg DAILY IV 08/05/25 10:00 08/05/25 10:22 40 MG Diagnostic Test (Pha) 1 strip ACHS 08/04/25 17:00 08/05/25 11:30 1 STRIP Insulin Human Regular ACHS SC 08/04/25 17:00 08/05/25 12:13 4 UNITS Dextrose 50 ml UD PRN IV 08/04/25 15:30 Lactated Ringer's 1,000 ml @ 50 mls/hr Q20H IV 08/05/25 14:30 UNV Laboratory Results Laboratory Tests 08/04/25 07:01 08/05/25 10:20 Chemistry Test 08/05/25 10:20 Albumin 3.9 g/dL (3.2-4.8) Calcium Level 8.6 mg/dL (8.7-10.4) L Total Protein 6.2 g/dL (5.7-8.2) LFT Test 08/05/25 10:20 Alanine Aminotransferase (ALT) 197 U/L (7-40) H Alkaline Phosphatase 202 U/L (46-116) H Aspartate Amino Transferase (AST) 50 U/L (13-40) H Total Bilirubin 0.9 mg/dL (0.2-1.0) Urinalysis Test 08/03/25 01:23 Urine Color Light-yellow (Yellow) Urine Clarity Clear (Clear) Urine pH 6.5 (5.0-9.0) Urine Specific [place] 1.028 (1.001-1.035) Urine Protein Negative (Negative) Urine Ketones Negative (Negative) Urine Blood Negative /uL (Negative) Urine Nitrite Negative (Negative) Urine Bilirubin Negative (Negative) Urine Urobilinogen 2 mg/dL (Negative) H Urine Leukocyte Esterase Negative /uL (Negative) Urine RBC None seen /hpf (0 - 4) Urine Microscopic WBC < 1 /HPF (0-5) Urine Squamous Epithelial Cells Few /hpf (<5) Urine Bacteria None seen /hpf (None Seen) Urine Glucose Trace mg/dL (Normal) Labs and/or images reviewed: Labs reviewed by me, Image(s) reviewed by me Assessment/Plan Assessment/Plan Impression: -transaminitis, rule out acute hepatitis -history of hepatitis-C -GERD -obesity -diabetes mellitus Plan: Events: pain with clear liq. diet. -GI consult -MRI of the liver: Reviewed -start clear liquid diet -PPI -check CA 19 nine, alpha fetoprotein level: pending -regular insulin sliding scale -repeat labs in a.m. Total time spent with patient discussing and formulating plan of care: 35 minutes. This medical document was created using an electronic medical record system with [employer] system. Although this document has been carefully reviewed, there may still be some phonetic and typographical errors. These areas are purely typographical due to imperfections of the software programs, and do not reflect any compromise in the patient's medical care. Plan discussed with: Patient, Other (RN) My Orders Orders - IESHA WEEKS NP Procedure Category Date Status Time Clear Liq Diet DIET 08/04/25 Transmitted Dinner Carbohydrate Antigen LAB 08/04/25 In Process 19-9 Pantoprazole PHA 08/05/25 In Process (Protonix) 10:00 Glucose Blood PHA 08/04/25 In Process (Accu-Chek Comfort 17:00 Insulin R (Human) PHA 08/04/25 In Process (Insulin R) 17:00 Dextrose 50% Syringe PHA 08/04/25 In Process 15:30 Mri Abdomen W And Wo MRI 08/05/25 Resulted 15:21 Lactated Ringer's PHA 08/05/25 Logged 14:30 * [facility] [employer] CONS 08/05/25 Transmitted 14:24 Pantoprazole PHA 08/05/25 Transmitted (Protonix) 22:00 Date of Service: Aug 05, 2025 Billing Provider: IESHA WEEKS NP Common Visit Codes: [id number] INP/OBS CARE(HIGH) IESHA WEEKS NP Aug 05, 2025 14:32
[2025-08-06] VITALS (8 sets, daily range): BP systolic 102–162; BP diastolic 59–92; PULSE 63–81; RESP 15–21; TEMP 97.5–99; O2SAT 96–97
--- NOTE | 2025-08-06 09:43 | ECG ---
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
--- NOTE | 2025-08-06 11:11 | DVHINCON2 ---
Date of service: Aug 06, 2025 Referring Physician Mechelle Reason for Consultation Abdominal pain History of Present Illness The patient is a 50-year-old female with a past medical history significant for GERD, hyperlipidemia, anxiety, peptic ulcer disease, admitted with epigastric and right upper quadrant abdominal pain associated with nausea nonbloody emesis. Patient has a prior history of GERD as well as history of peptic ulcer disease. She is on a PPI. She denies any ill contacts, she denies any recent travel history or change in medications. The pain is significant was epigastric and now was right upper quadrant. Patient has a prior cholecystectomy. She denies any fevers or chills, chest pain or shortness of breath. Imaging studies show no acute findings. GI consultation was obtained for evaluation. Past Medical History As above Past Surgical History Cholecystectomy, section, tubal ligation, rotator cuff surgery Family History: Patient reports no known family medical history. Allergies: Coded Allergies: Diphenhydramine (Verified Allergy, Unknown, 02/10/20) Penicillins (Verified Allergy, Unknown, 02/10/20) Home Meds Active Scripts Atorvastatin Calcium (ATORVASTATIN CALCIUM) 20 Mg Tab, 1 TAB PO HS for 30 Days, #30 TAB 5 Refills Prov:MARCO BARKER 05/17/25 Sucralfate (CARAFATE SUSP) 1 Gm/10 Ml Ss, 10 ML PO BID for 30 Days, #600 ML 1 Refill Prov:MERYL WALKER MD 09/13/24 Pantoprazole Sodium Sesquihydr (Protonix) 40 Mg Tab, 40 MG PO BID, #60 TAB Prov:MERYL WALKER MD 09/13/24 Ondansetron (Zofran) 4 Mg Tab, 1 TAB PO Q8HR PRN, #15 TAB 0 Refills Prov:MATEUSZ ROCA 04/09/23 Reported Medications Omeprazole (Gnp Omeprazole) 20 Mg Tab, 2 TAB PO DAILY 08/03/25 Atorvastatin Calcium (Lipitor) 10 Mg Tab, 10 MG PO DAILY@DINNER, TAB 09/11/24 Ropinirole Hydrochloride (Ropinirole Hcl) 1 Mg Tab, 1 MG PO HS, TAB 09/11/24 Trazodone Hcl (Trazodone Hcl) 50 Mg Tab, 50 MG PO HS, MG 10/27/24 Discontinued Reported Medications Tramadol Hcl (Tramadol Hcl) 50 Mg Tab, 50 MG PO Q6HP, MG 09/11/24 Current Medications Current Medications Medications (Trade) Dose Ordered Sig/Ragini Route PRN Reason Start Time Stop Time Status Last Admin Lactated Ringer's 1,000 ml @ 50 mls/hr Q20H IV 08/05/25 14:30 08/06/25 00:00 Pantoprazole Sodium (Protonix) 40 mg BID IV 08/05/25 22:00 08/06/25 10:06 Metronidazole 100 ml @ 100 mls/hr Q8HR IV 08/05/25 14:41 08/06/25 05:00 Review of Systems Review of systems as per HPI She has hyperlipidemia but no diabetes or hypothyroidism No stroke or seizure, she has anxiety and depression No history of anemia or malignancy History of arthritic issues and surgeries No dysuria hematuria No rashes bruises or pruritus See HPI for GI issues No chest pain palpitations cough wheeze or shortness of breath Vital Signs Vital Signs Date Time Temp Pulse Resp B/P (MAP) Pulse Ox O2 Delivery O2 Flow Rate FiO2 08/06/25 10:06 79 22 120/74 08/06/25 09:00 99.0 97 99.0 08/05/25 20:00 Room Air* 0 21 Physical Exam General: Well-developed well-nourished HEENT: NC/AT EOMI PERRLA O/P clear, no JVD or cervical lymphadenopathy, no scleral icterus Heart: Regular rate and rhythm, no murmurs rubs or gallops Lungs: Clear to auscultation bilaterally, no wheezes rales or rhonchi Abdomen: Soft, [id number] right upper quadrant tenderness to palpation nondistended, no organomegaly, normoactive bowel sounds Extremity: No clubbing cyanosis or edema, no rashes or bruises Neuro: Cranial nerves 2-12 grossly intact, moves all four extremities, no asterixis Labs/Diagnostic Data Labs Test 08/06/25 05:06 08/05/25 10:20 08/04/25 16:44 08/04/25 07:01 Range/Units POC Glucose 170 H 70-106 mg/dl Sodium Level 138 136-145 mmol/L Potassium Level 4.2 3.5-5.1 mmol/L Chloride Level 105 98-107 mmol/L Carbon Dioxide Level 22 20-31 mmol/L Anion Gap 11 5-15 Blood Urea Nitrogen 7 L 9-23 mg/dL Creatinine 0.70 0.550-1.02 mg/dL Glomerular Filtration Rate Calc 107 >90 mL/min BUN/Creatinine Ratio 10.0 10.0-20.0 Serum Glucose 278 H 74-106 mg/dL Calcium Level 8.6 L 8.7-10.4 mg/dL Total Bilirubin 0.9 0.2-1.0 mg/dL Aspartate Amino Transferase (AST) 50 H 13-40 U/L Alanine Aminotransferase (ALT) 197 H 7-40 U/L Alkaline Phosphatase 202 H 46-116 U/L Total Protein 6.2 5.7-8.2 g/dL Albumin 3.9 3.2-4.8 g/dL Tumor Marker Alpha Fetoprotein 2.9 0.0-6.4 ng/mL White Blood Count 6.0 4.4-10.8 10^3/uL Red Blood Count 5.13 4.0-5.20 10^6/uL Hemoglobin 13.7 12.2-16.2 g/dL Hematocrit 40.8 36.0-46.0 % Mean Corpuscular Volume 79.5 L 80.0-100.0 fL Mean Corpuscular Hemoglobin 26.8 L 28.0-32.0 pg Mean Corpuscular Hemoglobin Concent 33.7 32.0-36.0 g/dL Red Cell Distribution Width 14.1 11.8-14.3 % Platelet Count 199 140-450 10^3/uL Mean Platelet Volume 9.1 6.9-10.8 fL Neutrophils (%) (Auto) 59.3 37.0-80.0 % Lymphocytes (%) (Auto) 30.6 10.0-50.0 % Monocytes (%) (Auto) 5.8 0.0-12.0 % Eosinophils (%) (Auto) 4.1 0.0-7.0 % Basophils (%) (Auto) 0.2 0.0-2.0 % Neutrophils # (Auto) 3.6 1.6-8.6 10 ^3/uL Lymphocytes # (Auto) 1.8 0.4-5.4 10 ^3/uL Monocytes # (Auto) 0.4 0-1.3 10 ^3/uL Eosinophils # (Auto) 0.2 0-0.8 10 ^3/uL Basophils # (Auto) 0 0-0.2 10 ^3/uL Nucleated Red Blood Cells 0.0 % Hepatitis A IgM Antibody Negative Hepatitis B Surface Antigen Negative Negative Hepatitis B Core IgM Antibody Negative Negative Hepatitis C Antibody Reactive *A Negative Test 08/03/25 09:32 08/03/25 01:23 08/03/25 01:10 08/02/25 22:17 Range/Units Hemoglobin A1c 8.1 H <5.7 % A1C Urine Color Light-yellow Yellow Urine Clarity Clear Clear Urine pH 6.5 5.0-9.0 Urine Specific [place] 1.028 1.001-1.035 Urine Protein Negative Negative Urine Ketones Negative Negative Urine Blood Negative Negative /uL Urine Nitrite Negative Negative Urine Bilirubin Negative Negative Urine Urobilinogen 2 H Negative mg/dL Urine Leukocyte Esterase Negative Negative /uL Urine RBC None seen 0 - 4 /hpf Urine Microscopic WBC < 1 0-5 /HPF Urine Squamous Epithelial Cells Few <5 /hpf Urine Bacteria None seen None Seen /hpf Urine Glucose Trace Normal mg/dL Urine Opiates Screen Pos NEGATIVE Urine Fentanyl Screen Neg NEGATIVE Urine Barbiturates Screen Neg NEGATIVE Urine Phencyclidine Screen Neg NEGATIVE Urine Amphetamines Screen Neg NEGATIVE Urine Benzodiazepines Screen Neg NEGATIVE Urine Cocaine Screen Neg NEGATIVE Urine Cannabinoids Screen Neg NEGATIVE Troponin I High Sensitivity 3 L </=34 ng/L Amylase Level 50 30-118 U/L Plasma/Serum Blood Alcohol < 3.0 <10 mg/dL Lipase 39 12-53 U/L Assessment 1. Abdominal pain 2. History of nausea and vomiting 3. History of cholecystectomy 4. Transaminitis 5. History of peptic ulcer disease Differential diagnosis includes retained bile duct stone versus gastroenteritis likely viral in nature versus other Problems(with codes): (1) Intractable abdominal pain (2) Elevated liver function tests (3) Elevated d-dimer (4) Shortness of breath (5) Gastric peptic ulcer Plan/Recommendation 1. We will follow, continue with clear liquid diet 2. Consider further workup with imaging such as HIDA scan to see if there is retained stone versus MRCP 3. Consider further workup for autoimmune liver disease if the LFTs remain elevated 4. Continue PPI 5. Consider EGD if the symptoms persist or worsen Plan discussed with: Patient STEFANO HUTTON MD Aug 06, 2025 11:11
--- NOTE | 2025-08-06 11:16 | DVHPN2 ---
Subjective Patient continues to have epigastric and right upper quadrant pain Reviewed: Care Plan, Labs, Medications Changes from previous H/P or p: No Changes General: Per HPI Gastrointestinal: Nausea, Vomiting, Abdominal Pain Objective Vitals Vital Signs Date Time Temp Pulse Resp B/P (MAP) Pulse Ox O2 Delivery O2 Flow Rate FiO2 08/06/25 10:36 64 18 110/64 08/06/25 09:00 99.0 97 99.0 08/05/25 20:00 Room Air* 0 21 Intake/Output Intake and Output 08/06/25 07:00 Intake Total 1810 ml Balance 1810 ml Intake Oral 1610 ml IV Total 200 ml # Voids 7 # Bowel Movements 1 General Appearance: Alert, Oriented X3, Cooperative, No acute distress HEENT: Atraumatic, PERRLA Cardiovascular: Normal S1, Normal S2 Musculoskeletal: Normal sensory function, Normal motor function Skin: Dry, Intact Psych/Mental Status: Mental status NL, Mood NL Medications Current Medications Medications Dose Ordered Sig/Ragini Route Start Time Stop Time Status Last Admin Dose Admin Acetaminophen/ Hydrocodone Bitart 1 tab Q4HP PRN PO 08/03/25 08:15 Ondansetron HCl 4 mg Q4HP PRN IV 08/03/25 08:15 08/05/25 16:04 4 MG Acetaminophen 650 mg Q6HP PRN PO 08/03/25 08:15 Trazodone HCl 50 mg HS PO 08/03/25 22:00 08/05/25 22:50 50 MG Patient Own Medication 1 mg HS PO 08/03/25 22:00 Hydralazine HCl 10 mg Q6HP PRN IV 08/03/25 09:30 Morphine Sulfate 2 mg Q4HPRN PRN IV 08/04/25 10:45 08/06/25 10:06 2 MG Diagnostic Test (Pha) 1 strip ACHS 08/04/25 17:00 08/06/25 11:09 1 STRIP Insulin Human Regular ACHS SC 08/04/25 17:00 08/06/25 05:58 3 UNITS Dextrose 50 ml UD PRN IV 08/04/25 15:30 Lactated Ringer's 1,000 ml @ 50 mls/hr Q20H IV 08/05/25 14:30 08/06/25 00:00 50 MLS/HR Pantoprazole Sodium 40 mg BID IV 08/05/25 22:00 08/06/25 10:06 40 MG Metronidazole 100 ml @ 100 mls/hr Q8HR IV 08/05/25 14:41 08/06/25 05:00 100 MLS/HR Laboratory Results Laboratory Tests 08/04/25 07:01 08/05/25 10:20 Urinalysis Test 08/03/25 01:23 Urine Color Light-yellow (Yellow) Urine Clarity Clear (Clear) Urine pH 6.5 (5.0-9.0) Urine Specific [place] 1.028 (1.001-1.035) Urine Protein Negative (Negative) Urine Ketones Negative (Negative) Urine Blood Negative /uL (Negative) Urine Nitrite Negative (Negative) Urine Bilirubin Negative (Negative) Urine Urobilinogen 2 mg/dL (Negative) H Urine Leukocyte Esterase Negative /uL (Negative) Urine RBC None seen /hpf (0 - 4) Urine Microscopic WBC < 1 /HPF (0-5) Urine Squamous Epithelial Cells Few /hpf (<5) Urine Bacteria None seen /hpf (None Seen) Urine Glucose Trace mg/dL (Normal) Labs and/or images reviewed: Labs reviewed by me, Image(s) reviewed by me Assessment/Plan Assessment/Plan Impression: -transaminitis, rule out acute hepatitis -history of hepatitis-C -GERD -obesity -diabetes mellitus Plan: Events: Patient continues to have abdominal pain. GI has rounded with the patient, discussed EGD. -GI consult -MRI of the liver: Reviewed -start clear liquid diet -PPI -check CA 19 nine, alpha fetoprotein level: pending -regular insulin sliding scale -repeat labs in a.m. Total time spent with patient discussing and formulating plan of care: 35 minutes. This medical document was created using an electronic medical record system with [employer] dictation system. Although this document has been carefully reviewed, there may still be some phonetic and typographical errors. These areas are purely typographical due to imperfections of the software programs, and do not reflect any compromise in the patient's medical care. Plan discussed with: Patient, Other (RN) My Orders Orders - IESHA WEEKS REFINERY OPERATOR [employer]KING Procedure Category Date Status Time Lactated Ringer's PHA 08/05/25 In Process 14:30 * [facility] Fashion Director CONS 08/05/25 Transmitted 14:24 Pantoprazole PHA 08/05/25 In Process (Protonix) 22:00 Metronidazole PHA 08/05/25 In Process 500mg/100ml (Flagyl 14:41 Comprehensive LAB 08/06/25 Logged Metabolic Panel 11:10 PTPTT LAB 08/06/25 Verified 11:14 Date of Service: Aug 06, 2025 Billing Provider: IESHA WEEKS NP Common Visit Codes: [id number] INP/OBS CARE(HIGH) IESHA WEEKS NP Aug 06, 2025 11:16
[2025-08-06 11:57] LABS: INR 0.99 (0.9-1.15); Partial Thromboplastin Time 29.3 SEC (24.5-34.5); Prothrombin Time 10.5 sec (9.3-11.8)
[2025-08-06 12:31] LABS: Albumin 4.0 g/dL (3.2-4.8); Anion Gap 9 (5-15); BUN/Creatinine Ratio 8.5 (10.0-20.0); Calcium 8.7 mg/dL (8.7-10.4); Carbon Dioxide 24 mmol/L (20-31); Chloride 106 mmol/L (98-107); Potassium 4.4 mmol/L (3.5-5.1); Sodium 139 mmol/L (136-145); Total Protein 6.4 g/dL (5.7-8.2)
[2025-08-06 12:32] LABS: Bilirubin, Total 0.8 mg/dL (0.2-1.0)
[2025-08-06 12:34] LABS: Alanine Aminotransferase 141 U/L (7-40); Alkaline Phosphatase 182 U/L (46-116); Blood Urea Nitrogen 6 mg/dL (9-23); Glucose 222 mg/dL (74-106)
[2025-08-06] MEDS: SUCRALFATE 1 GM/10 ML ORAL SUSP PO SCH (22:15)
[2025-08-07] VITALS (10 sets, daily range): BP systolic 99–127; BP diastolic 59–80; PULSE 62–90; RESP 15–18; TEMP 97.8–98.8; O2SAT 94–99
[2025-08-07] MEDS ORDERED: PROPOFOL 10 MG/ML 20 ML IV ONE (11:16)
[2025-08-07] MEDS ORDERED: SODIUM CHLORIDE LOCK 10 ML ONE (11:16)
[2025-08-07] MEDS ORDERED: MIDAZOLAM HCL 2MG/2ML 2ml VIAL (1mg/ml) ONE (11:16)
[2025-08-07] MEDS ORDERED: fentaNYL CITRATE 100 MCG/2 ML VL ONE (11:16)
[2025-08-07] MEDS ORDERED: ONDANSETRON HCL 4 MG/2 ML VIAL ONE (11:16)
--- NOTE | 2025-08-07 11:17 | DVHPN2 ---
Subjective Patient continues to have epigastric and right upper quadrant pain Reviewed: Care Plan, Labs, Medications Changes from previous H/P or p: No Changes General: Per HPI Gastrointestinal: Nausea, Vomiting, Abdominal Pain Objective Vitals Vital Signs Date Time Temp Pulse Resp B/P (MAP) Pulse Ox O2 Delivery O2 Flow Rate FiO2 08/07/25 08:44 97.9 62 15 99/59 (72) 97 97.9 08/07/25 08:00 Room Air* 0 21 Intake/Output Intake and Output 08/07/25 07:00 Intake Total 2025 ml Balance 2025 ml Intake Oral 975 ml IV Total 1050 ml # Voids 6 # Bowel Movements 1 General Appearance: Alert, Oriented X3, Cooperative, No acute distress HEENT: Atraumatic, PERRLA Cardiovascular: Normal S1, Normal S2 Musculoskeletal: Normal sensory function, Normal motor function Skin: Dry, Intact Psych/Mental Status: Mental status NL, Mood NL Medications Current Medications Medications Dose Ordered Sig/Ragini Route Start Time Stop Time Status Last Admin Dose Admin Acetaminophen/ Hydrocodone Bitart 1 tab Q4HP PRN PO 08/03/25 08:15 Ondansetron HCl 4 mg Q4HP PRN IV 08/03/25 08:15 08/07/25 06:19 4 MG Acetaminophen 650 mg Q6HP PRN PO 08/03/25 08:15 Trazodone HCl 50 mg HS PO 08/03/25 22:00 08/06/25 22:15 50 MG Patient Own Medication 1 mg HS PO 08/03/25 22:00 Hydralazine HCl 10 mg Q6HP PRN IV 08/03/25 09:30 Morphine Sulfate 2 mg Q4HPRN PRN IV 08/04/25 10:45 08/07/25 05:56 2 MG Diagnostic Test (Pha) 1 strip ACHS 08/04/25 17:00 08/07/25 05:55 1 STRIP Insulin Human Regular ACHS SC 08/04/25 17:00 08/06/25 22:36 3 UNITS Dextrose 50 ml UD PRN IV 08/04/25 15:30 Lactated Ringer's 1,000 ml @ 50 mls/hr Q20H IV 08/05/25 14:30 08/07/25 06:04 50 MLS/HR Pantoprazole Sodium 40 mg BID IV 08/05/25 22:00 08/07/25 08:58 40 MG Metronidazole 100 ml @ 100 mls/hr Q8HR IV 08/05/25 14:41 08/07/25 05:54 100 MLS/HR Sucralfate 1 gm QID@0600,1130,1700,2200 PO 08/06/25 22:00 08/07/25 05:54 1 GM Laboratory Results Laboratory Tests 08/04/25 07:01 08/06/25 11:25 Chemistry Test 08/06/25 11:25 Albumin 4.0 g/dL (3.2-4.8) Calcium Level 8.7 mg/dL (8.7-10.4) Total Protein 6.4 g/dL (5.7-8.2) Coagulation Test 08/06/25 11:25 Prothrombin Time 10.5 sec (9.3-11.8) Prothrombin Time INR 0.99 (0.9-1.15) Activated Partial Thromboplast Time 29.3 SEC (24.5-34.5) LFT Test 08/06/25 11:25 Alanine Aminotransferase (ALT) 141 U/L (7-40) H Alkaline Phosphatase 182 U/L (46-116) H Aspartate Amino Transferase (AST) 34 U/L (13-40) Total Bilirubin 0.8 mg/dL (0.2-1.0) Urinalysis Test 08/03/25 01:23 Urine Color Light-yellow (Yellow) Urine Clarity Clear (Clear) Urine pH 6.5 (5.0-9.0) Urine Specific [place] 1.028 (1.001-1.035) Urine Protein Negative (Negative) Urine Ketones Negative (Negative) Urine Blood Negative /uL (Negative) Urine Nitrite Negative (Negative) Urine Bilirubin Negative (Negative) Urine Urobilinogen 2 mg/dL (Negative) H Urine Leukocyte Esterase Negative /uL (Negative) Urine RBC None seen /hpf (0 - 4) Urine Microscopic WBC < 1 /HPF (0-5) Urine Squamous Epithelial Cells Few /hpf (<5) Urine Bacteria None seen /hpf (None Seen) Urine Glucose Trace mg/dL (Normal) Labs and/or images reviewed: Labs reviewed by me, Image(s) reviewed by me Assessment/Plan Assessment/Plan Impression: -transaminitis, rule out acute hepatitis -history of hepatitis-C -GERD -obesity -diabetes mellitus Plan: Events: Plans for EGD today. Currently NPO. -GI consult: Recommendations reviewed -MRI of the liver: Reviewed -start clear liquid diet -PPI -check CA 19 nine, alpha fetoprotein level: pending -regular insulin sliding scale -repeat labs in a.m. Total time spent with patient discussing and formulating plan of care: 35 minutes. This medical document was created using an electronic medical record system with [employer] dictation system. Although this document has been carefully reviewed, there may still be some phonetic and typographical errors. These areas are purely typographical due to imperfections of the software programs, and do not reflect any compromise in the patient's medical care. Plan discussed with: Patient, Other (RN) Date of Service: Aug 07, 2025 Billing Provider: IESHA WEEKS NP Common Visit Codes: [id number] INP/OBS CARE(HIGH) IESHA WEEKS NP Aug 07, 2025 11:17
[2025-08-07] MEDS: ACCU-CHEK COMFORT CURVE STRIP VI ONE (12:15)
[2025-08-07] MEDS: KETOROLAC TROMETH 30 MG/ML 1ML VIAL IV ONE (12:15)
[2025-08-07] MEDS ORDERED: METOCLOPRAMIDE HCL 5MG/ml INJ 2ml VIAL IV PRN (12:15)
[2025-08-07] MEDS ORDERED: MORPHINE SULFATE INJ 2 MG/ml SYRG IV PRN (12:15)
[2025-08-07] MEDS ORDERED: HYDROmorphone HCL 2 MG/ML VL/or syr IV PRN ×2 (12:15)
[2025-08-07] MEDS ORDERED: MORPHINE SULFATE 4 MG/ML SYR/VIAL IV PRN (12:15)
[2025-08-07] MEDS ORDERED: LIDOCAINE VISCOUS 2% 15ML UD ONE (13:13)
--- NOTE | 2025-08-07 13:38 | DVHOP2 ---
Operative Report DATE OF OPERATION: 08/07/25 PROCEDURE: Upper Endoscopy with biopsy. PREOPERATIVE INDICATION: The patient is a 50 -year-old female undergoing endoscopy for epigastric and right upper quadrant pain POSTOPERATIVE DIAGNOSES: 1. Mild duodenitis in the postbulbar area with a healing duodenal erosions and some scarring from previous duodenal ulcer disease 2. Mild gastritis otherwise normal examination of the 2nd and 3rd part of the d uodenum PROCEDURE PERFORMED BY: Sherron Rodriguez GI NURSE: Jacob SCOPE: Olympus videoendoscope. ASA CLASS: PREOPERATIVE MEDICATIONS: Dr. Garett Santoyo PROCEDURE IN DETAIL: After obtaining an informed consent, the patient was placed on left lateral decubitus position. The patient was then sedated with the above medications. A bite block was placed between her teeth. The endoscope was then passed through the oropharynx, into the esophagus, and through the stomach and pylorus up to the second and third part of the duodenum. The endoscope was then withdrawn. Second and 3rd part of the duodenal were normal. The postbulbar area of the duodenal showed some healing duodenitis with superficial erosions There was some scarring probably from previous peptic ulcer disease in this area. Duodenal biopsies were obtained. There was no visible vessel or active ulceration at this time. The pre-pyloric area and antrum showed mild gastritis. On retroflexion the fundus cardia and angularis were normal. The endoscope was then withdrawn into the distal esophagus There was no significant hiatal hernia and no significant esophagitis.The remaining distal and proximal esophagus and oropharynx were unremarkable The patient tolerated the procedure well without difficulty. COMPLICATIONS : None SPECIMENS: Duodenal biopsies Gastric biopsies DISPOSITION: Transfer back to the floor Stable PLAN: 1. Await for biopsy result 2. Will place pt on Protonix 40 mg bid 3. Carafate 1 g p.o. twice a day 4. Advance diet as tolerated 5. Patient has positive hepatitis-C antibody however she states that she has negative viremia based on her last outpatient testing 6. Liver enzymes are trending down and could be suggestive of passage of a small stone or sludge, however her MRI shows no biliary ductal dilatation and 7. Resume GI soft diet advance as tolerated and outpatient follow up with me in 2-4 weeks for ongoing observation and management SHERRON RODRIGUEZ MD Aug 07, 2025 13:38
[2025-08-07 13:59] LABS: Alanine Aminotransferase 99.0 U/L (7-40); Albumin 4.0 g/dL (3.2-4.8); Alkaline Phosphatase 161.0 U/L (46-116); Bilirubin, Direct 0.2 mg/dL (<0.3); Bilirubin, Total 1.0 mg/dL (0.2-1.0); Total Protein 6.7 g/dL (5.7-8.2)
[2025-08-08 01:00] VITALS: BP 114/69; PULSE 85; RESP 17; TEMP 97.9; O2SAT 96
[2025-08-08] MEDS: HYDROcodone-ACET 5/325MG TAB PO PRN (01:28)
[2025-08-08 05:00] VITALS: BP 124/73; PULSE 76; RESP 18; TEMP 97.8; O2SAT 97
[2025-08-08 07:45] VITALS: RESP 16
[2025-08-08 09:00] VITALS: BP 105/69; PULSE 74; RESP 16; TEMP 97.8; O2SAT 97
[2025-08-08 09:55] LABS: Albumin 3.9 g/dL (3.2-4.8); Anion Gap 10 (5-15); Carbon Dioxide 22 mmol/L (20-31); Chloride 107 mmol/L (98-107); Potassium 4.1 mmol/L (3.5-5.1); Sodium 139 mmol/L (136-145); Total Protein 6.4 g/dL (5.7-8.2)
[2025-08-08 09:56] LABS: Bilirubin, Total 0.9 mg/dL (0.2-1.0)
[2025-08-08 09:58] LABS: Alanine Aminotransferase 71 U/L (7-40); Alkaline Phosphatase 149 U/L (46-116); BUN/Creatinine Ratio 7.5 (10.0-20.0); Blood Urea Nitrogen < 5 mg/dL (9-23); Calcium 8.7 mg/dL (8.7-10.4); Glucose 151 mg/dL (74-106)
--- NOTE | 2025-08-08 11:32 | DVHPN2 ---
Subjective Patient continues to report having epigastric pain. States it has improved since yesterday Reviewed: Care Plan, Labs, Medications Changes from previous H/P or p: Changes General: Per HPI Gastrointestinal: Nausea, Vomiting, Abdominal Pain Objective Vitals Vital Signs Date Time Temp Pulse Resp B/P (MAP) Pulse Ox O2 Delivery O2 Flow Rate FiO2 08/08/25 09:00 97.8 74 16 105/69 (81) 97 97.8 08/08/25 07:45 Room Air* 0 21 Intake/Output Intake and Output 08/08/25 07:00 Intake Total 1730 ml Balance 1730 ml Intake Oral 1420 ml IV Total 310 ml # Voids 8 # Bowel Movements 1 General Appearance: Alert, Oriented X3, Cooperative, No acute distress HEENT: Atraumatic, PERRLA Cardiovascular: Normal S1, Normal S2 Musculoskeletal: Normal sensory function, Normal motor function Skin: Dry, Intact Psych/Mental Status: Mental status NL, Mood NL Medications Current Medications Medications Dose Ordered Sig/Ragini Route Start Time Stop Time Status Last Admin Dose Admin Acetaminophen/ Hydrocodone Bitart 1 tab Q4HP PRN PO 08/03/25 08:15 08/08/25 11:01 1 TAB Ondansetron HCl 4 mg Q4HP PRN IV 08/03/25 08:15 08/08/25 06:17 4 MG Acetaminophen 650 mg Q6HP PRN PO 08/03/25 08:15 Trazodone HCl 50 mg HS PO 08/03/25 22:00 08/07/25 21:22 50 MG Patient Own Medication 1 mg HS PO 08/03/25 22:00 Hydralazine HCl 10 mg Q6HP PRN IV 08/03/25 09:30 Morphine Sulfate 2 mg Q4HPRN PRN IV 08/04/25 10:45 08/07/25 20:02 2 MG Diagnostic Test (Pha) 1 strip ACHS 08/04/25 17:00 08/08/25 11:09 1 STRIP Insulin Human Regular ACHS SC 08/04/25 17:00 08/08/25 11:11 3 UNITS Dextrose 50 ml UD PRN IV 08/04/25 15:30 Lactated Ringer's 1,000 ml @ 50 mls/hr Q20H IV 08/05/25 14:30 08/07/25 06:04 50 MLS/HR Pantoprazole Sodium 40 mg BID IV 08/05/25 22:00 08/08/25 08:59 40 MG Metronidazole 100 ml @ 100 mls/hr Q8HR IV 08/05/25 14:41 08/08/25 05:54 100 MLS/HR Sucralfate 1 gm QID@0600,1130,1700,2200 PO 08/06/25 22:00 08/08/25 11:00 1 GM Laboratory Results Laboratory Tests 08/04/25 07:01 08/08/25 09:06 Chemistry Test 08/07/25 12:32 08/08/25 09:06 Albumin 4.0 g/dL (3.2-4.8) 3.9 g/dL (3.2-4.8) Total Protein 6.7 g/dL (5.7-8.2) 6.4 g/dL (5.7-8.2) Calcium Level 8.7 mg/dL (8.7-10.4) LFT Test 08/07/25 12:32 08/08/25 09:06 Alanine Aminotransferase (ALT) 99 U/L (7-40) H 71 U/L (7-40) H Alkaline Phosphatase 161 U/L (46-116) H 149 U/L (46-116) H Aspartate Amino Transferase (AST) 34 U/L (13-40) 22 U/L (13-40) Direct Bilirubin 0.2 mg/dL (<0.3) Total Bilirubin 1.0 mg/dL (0.2-1.0) 0.9 mg/dL (0.2-1.0) Urinalysis Test 08/03/25 01:23 Urine Color Light-yellow (Yellow) Urine Clarity Clear (Clear) Urine pH 6.5 (5.0-9.0) Urine Specific [place] 1.028 (1.001-1.035) Urine Protein Negative (Negative) Urine Ketones Negative (Negative) Urine Blood Negative /uL (Negative) Urine Nitrite Negative (Negative) Urine Bilirubin Negative (Negative) Urine Urobilinogen 2 mg/dL (Negative) H Urine Leukocyte Esterase Negative /uL (Negative) Urine RBC None seen /hpf (0 - 4) Urine Microscopic WBC < 1 /HPF (0-5) Urine Squamous Epithelial Cells Few /hpf (<5) Urine Bacteria None seen /hpf (None Seen) Urine Glucose Trace mg/dL (Normal) Labs and/or images reviewed: Labs reviewed by me, Image(s) reviewed by me Assessment/Plan Assessment/Plan Impression: -transaminitis, rule out acute hepatitis -history of hepatitis-C -GERD -obesity -diabetes mellitus Plan: Events: Status post EGD. Findings peptic ulcer disease. No active bleeding. Patient now reports having bright red blood with BM today. -stool for occult blood -GI consult: Recommendations reviewed -MRI of the liver: Reviewed -Advance diet as tolerated -PPI -regular insulin sliding scale -repeat labs in a.m. Total time spent with patient discussing and formulating plan of care: 35 minutes. This medical document was created using an electronic medical record system with [employer] dictation system. Although this document has been carefully reviewed, there may still be some phonetic and typographical errors. These areas are purely typographical due to imperfections of the software programs, and do not reflect any compromise in the patient's medical care. Plan discussed with: Patient, Other (RN) My Orders Orders - IESHA WEEKS NP Procedure Category Date Status Time Stool Occult Blood LAB 08/08/25 Transmitted 11:29 Complete Blood Count LAB 08/08/25 Transmitted 11:29 Date of Service: Aug 08, 2025 Billing Provider: IESHA WEEKS NP Common Visit Codes: [id number] INP/OBS CARE(HIGH) IESHA WEEKS NP Aug 08, 2025 11:32
[2025-08-08 12:43] VITALS: BP 121/84; PULSE 89; RESP 17; TEMP 97.8; O2SAT 100
[2025-08-08 13:24] LABS: Hematocrit 37.9 % (36.0-46.0); Hemoglobin 12.6 g/dL (12.2-16.2); Mean Corpuscular Hemoglobin 26.6 pg (28.0-32.0); Mean Corpuscular Volume 80.1 fL (80.0-100.0); Nucleated Red Blood Cells % 0.2 %
--- NOTE | 2025-08-08 15:46 | DVHPN2 ---
Progress Note - Dictate Date Seen: Aug 08, 2025 Medical Necessity Reason Pt with a Central, PICC or Fol: No Subjective Patient is tolerating mechanical soft diet Abdominal pain is improving Liver enzymes are trending down Patient had a small amount of bright red blood per rectum today but none since then H&H is stable vital signs Vital Sign Date Time Temp Pulse Resp B/P (MAP) Pulse Ox O2 Delivery O2 Flow Rate FiO2 08/08/25 12:43 97.8 89 17 121/84 (96) 100 97.8 08/08/25 07:45 Room Air* 0 21 Total Intake and Output 08/07/25 08/07/25 08/08/25 15:00 23:00 07:00 Intake Total 10 ml 970 ml 750 ml Balance 10 ml 970 ml 750 ml medications Current Medications Medications Dose Ordered Sig/Ragini Route Start Time Stop Time Status Last Admin Dose Admin Acetaminophen/ Hydrocodone Bitart 1 tab Q4HP PRN PO 08/03/25 08:15 08/08/25 11:01 1 TAB Ondansetron HCl 4 mg Q4HP PRN IV 08/03/25 08:15 08/08/25 06:17 4 MG Acetaminophen 650 mg Q6HP PRN PO 08/03/25 08:15 Trazodone HCl 50 mg HS PO 08/03/25 22:00 08/07/25 21:22 50 MG Patient Own Medication 1 mg HS PO 08/03/25 22:00 Hydralazine HCl 10 mg Q6HP PRN IV 08/03/25 09:30 Morphine Sulfate 2 mg Q4HPRN PRN IV 08/04/25 10:45 08/07/25 20:02 2 MG Diagnostic Test (Pha) 1 strip ACHS 08/04/25 17:00 08/08/25 11:09 1 STRIP Insulin Human Regular ACHS SC 08/04/25 17:00 08/08/25 11:11 3 UNITS Dextrose 50 ml UD PRN IV 08/04/25 15:30 Pantoprazole Sodium 40 mg BID IV 08/05/25 22:00 08/08/25 08:59 40 MG Sucralfate 1 gm QID@0600,1130,1700,2200 PO 08/06/25 22:00 08/08/25 11:00 1 GM objective General Appearance: Alert, Oriented X3, Cooperative, No acute distress HEENT: Atraumatic, PERRLA Cardiovascular: Normal S1, Normal S2 Musculoskeletal: Normal sensory function, Normal motor function Skin: Dry, Intact Psych/Mental Status: Mental status NL, Mood NL laboratory and microbiology Laboratory Tests 08/08/25 09:06 Test 08/08/25 09:06 Range/Units Serum Glucose 151 H 74-106 mg/dL Problems(with codes): (1) Gastric peptic ulcer (2) Intractable abdominal pain (3) Elevated liver function tests (4) Abdominal pain (5) Constipation Prognosis Plan plan Recommend supportive care Patient's stool for occult blood may be positive because of recent EGD with biopsies Colace 100 mg p.o. twice a day Discharge planning as per hospitalist I plan to arrange an outpatient elective screening colonoscopy as an outpatient Once again thank you for allowing me to participate in the care of this patient Dietary Evaluation Review Recommendations by RD: Dietary education by RD Comments: 1) Encourage optimal PO intake 2) Advance to 60g CCHO cardiac diet when medically feasible 3) Refer to outpatient RD/CDCES for weight management 4) Follow-up with cardiology and gastroenterology/hepatology 5) Continue to monitor I&O, labs, and skin integrity Expected Outcomes/Goals: 1) appetite and labs to improve 2) diet to advance 3) gradual wt los 4) f/u in 3-5 days Plan discussed with: Patient, Other (Nurse) SHERRON THAPA MD Aug 08, 2025 15:46
[2025-08-08] MEDS ORDERED: PANT40TA2 PO (16:26)
[2025-08-08] MEDS ORDERED: SUCR1TAB31 OR (16:26)
--- NOTE | 2025-08-08 16:34 | DVHDS2 ---
Discharge Summary Date of Admission Aug 03, 2025 at 08:05 Date of Discharge: Aug 08, 2025 Admitting Diagnosis Intractable nausea and vomiting with abdominal pain Labs/Diagnostic Data: Laboratory Results Test 08/08/25 16:08 08/08/25 09:06 08/07/25 12:32 08/06/25 11:25 POC Glucose 207 mg/dl (70-106) White Blood Count 5.8 10^3/uL (4.4-10.8) Red Blood Count 4.74 10^6/uL (4.0-5.20) Hemoglobin 12.6 g/dL (12.2-16.2) Hematocrit 37.9 % (36.0-46.0) Mean Corpuscular Volume 80.1 fL (80.0-100.0) Mean Corpuscular Hemoglobin 26.6 pg (28.0-32.0) Mean Corpuscular Hemoglobin Concent 33.3 g/dL (32.0-36.0) Red Cell Distribution Width 13.9 % (11.8-14.3) Platelet Count 198 10^3/uL (140-450) Mean Platelet Volume 9.7 fL (6.9-10.8) Neutrophils (%) (Auto) 52.0 % (37.0-80.0) Lymphocytes (%) (Auto) 37.5 % (10.0-50.0) Monocytes (%) (Auto) 6.9 % (0.0-12.0) Eosinophils (%) (Auto) 3.3 % (0.0-7.0) Basophils (%) (Auto) 0.3 % (0.0-2.0) Neutrophils # (Auto) 3.0 10 ^3/uL (1.6-8.6) Lymphocytes # (Auto) 2.2 10 ^3/uL (0.4-5.4) Monocytes # (Auto) 0.4 10 ^3/uL (0-1.3) Eosinophils # (Auto) 0.2 10 ^3/uL (0-0.8) Basophils # (Auto) 0 10 ^3/uL (0-0.2) Nucleated Red Blood Cells 0.2 % Sodium Level 139 mmol/L (136-145) Potassium Level 4.1 mmol/L (3.5-5.1) Chloride Level 107 mmol/L (98-107) Carbon Dioxide Level 22 mmol/L (20-31) Anion Gap 10 (5-15) Blood Urea Nitrogen < 5 mg/dL (9-23) Creatinine 0.67 mg/dL (0.550-1.02) Glomerular Filtration Rate Calc 108 mL/min (>90) BUN/Creatinine Ratio 7.5 (10.0-20.0) Serum Glucose 151 mg/dL (74-106) Calcium Level 8.7 mg/dL (8.7-10.4) Total Bilirubin 0.9 mg/dL (0.2-1.0) Aspartate Amino Transferase (AST) 22 U/L (13-40) Alanine Aminotransferase (ALT) 71 U/L (7-40) Alkaline Phosphatase 149 U/L (46-116) Total Protein 6.4 g/dL (5.7-8.2) Albumin 3.9 g/dL (3.2-4.8) Direct Bilirubin 0.2 mg/dL (<0.3) Beta HCG, Quantitative 0.1 mIU/mL (1.5-4.2) Prothrombin Time 10.5 sec (9.3-11.8) Prothrombin Time INR 0.99 (0.9-1.15) Activated Partial Thromboplast Time 29.3 SEC (24.5-34.5) Test 08/04/25 16:44 08/04/25 07:01 08/03/25 09:32 08/03/25 01:23 Tumor Marker Alpha Fetoprotein 2.9 ng/mL (0.0-6.4) Hepatitis A IgM Antibody Negative Hepatitis B Surface Antigen Negative (Negative) Hepatitis B Core IgM Antibody Negative (Negative) Hepatitis C Antibody Reactive (Negative) Hemoglobin A1c 8.1 % A1C (<5.7) Urine Color Light-yellow (Yellow) Urine Clarity Clear (Clear) Urine pH 6.5 (5.0-9.0) Urine Specific [place] 1.028 (1.001-1.035) Urine Protein Negative (Negative) Urine Ketones Negative (Negative) Urine Blood Negative /uL (Negative) Urine Nitrite Negative (Negative) Urine Bilirubin Negative (Negative) Urine Urobilinogen 2 mg/dL (Negative) Urine Leukocyte Esterase Negative /uL (Negative) Urine RBC None seen /hpf (0 - 4) Urine Microscopic WBC < 1 /HPF (0-5) Urine Squamous Epithelial Cells Few /hpf (<5) Urine Bacteria None seen /hpf (None Seen) Urine Glucose Trace mg/dL (Normal) Urine Opiates Screen Pos (NEGATIVE) Urine Fentanyl Screen Neg (NEGATIVE) Urine Barbiturates Screen Neg (NEGATIVE) Urine Phencyclidine Screen Neg (NEGATIVE) Urine Amphetamines Screen Neg (NEGATIVE) Urine Benzodiazepines Screen Neg (NEGATIVE) Urine Cocaine Screen Neg (NEGATIVE) Urine Cannabinoids Screen Neg (NEGATIVE) Test 08/03/25 01:10 08/02/25 22:17 Troponin I High Sensitivity 3 ng/L (</=34) Amylase Level 50 U/L (30-118) Plasma/Serum Blood Alcohol < 3.0 mg/dL (<10) Lipase 39 U/L (12-53) Other Laboratory Tests 08/08/25 09:06 Brief Hx & Hospital Course: History of Present Illness Davina Aviles is a 50-year-old female with past medical history of anxiety, depression, diabetes, GERD, hyperlipidemia, cholecystectomy, , tubal ligation, bilateral carpal tunnel surgery, right shoulder rotator cuff repair, and left knee surgery who presents to the ED with abdominal pain, nausea, and vomiting that started yesterday. Patient endorses that the epigastric pain is 7/10 aching and constant. She reported that the epigastric pain radiated to her chest. She states that there are no triggering or alleviating factors. She reports that she ate a hamburger yesterday that was Arell[place] cooked. She denies recent travels, recent sick contacts, recent ingestion of spoiled food, recent trauma or injury, fever, chills, shortness of breath, diarrhea, or urinary symptoms. Course of hospitalization: Patient was found to have elevated LFTs as well as bilirubin. Patient had MRI of the liver, as well as hepatitis panel. No choledocholithiasis was noted. Patient is bilirubin did trend down back to within normal limits. Patient continued to have epigastric and left upper quadrant pain, worsening with eating. GI consultation was obtained. Patient underwent upper endoscopy y esterday. Findings of mild gastritis and duodenitis. Patient's diet has been advanced to mechanical soft. She will be discharged home with Protonix 40 mg p.o. twice a day for 30 days as well as Carafate 1 g tablet b.i.d. for 30 days. She is instructed to follow up with Dr. Rodriguez to go over her biopsy results from the EGD within three weeks, and is instructed to continue with her established appointment with her PCP next week. She is agreeable with discharge plan. All questions answered. Physical examination General: Alert and Oriented x3. No acute distress. Well-nourished. Obese Eyes: EOMI. Anicteric. HENT: Moist mucous membranes. Lungs: Clear to auscultation bilaterally. No accessory muscle use. Cardiovascular: Regular rate and rhythm. No murmur. No JVD. Abdomen: Soft, non-tender and non-distended. No palpable masses. Extremities: No edema. Non-tender. Skin: No rashes or lesions. Warm. Neurologic: No focal neurological deficits. CN II-XII grossly intact, but not individually tested. Psychiatric: Cooperative. Appropriate mood and affect. Total time spent with patient discussing and formulating plan of care: 35 minutes. This medical document was created using an electronic medical record system with [employer] dictation system. Although this document has been carefully reviewed, there may still be some phonetic and typographical errors. These areas are purely typographical due to imperfections of the software programs, and do not reflect any compromise in the patient's medical care. Consults/Reason for consult Gastroenterology: Epigastric pain Operations or Procedures 08/07/2025: EGD Condition at Discharge: Fair Final Diagnosis/Problems List Abdominal pain secondary to peptic ulcer disease -history of hepatitis-C -GERD -obesity -diabetes mellitus Discharge Disposition: Home Discharge Instruct/Medications Diet: Regular Activity: No Restrictions, As Tolerated Follow Up/Referral: Follow up with PCP as scheduled appointment next week Follow up with Dr. Ela Rodriguez in 2-3 weeks Medications: Protonix 40 mg p.o. b.i.d. times 30 days Carafate 1 g tablet b.i.d. times 30 days Scheduled Atorvastatin Calcium (Lipitor), 10 MG PO DAILY@DINNER, (Reported) Atorvastatin Calcium (Atorvastatin Calcium), 1 TAB PO HS Omeprazole (Gnp Omeprazole), 2 TAB PO DAILY, (Reported) Pantoprazole Sodium Sesquihydr (Protonix), 40 MG PO BID Pantoprazole Sodium Sesquihydr (Protonix), 40 MG PO BID Ropinirole Hydrochloride (Ropinirole Hcl), 1 MG PO HS, (Reported) Sucralfate (Carafate Susp), 10 ML PO BID Sucralfate (Carafate), 1 GM OR BID Trazodone Hcl (Trazodone Hcl), 50 MG PO HS, (Reported) Scheduled PRN Ondansetron (Zofran), 1 TAB PO Q8HR PRN Discontinued Medications Tramadol Hcl (Tramadol Hcl), 50 MG PO Q6HP, (Reported) 36 Discharge Statement: "Patient was advised to return to the ER or call 911 if any headaches, dizziness, shortness of breath, chest pain, abdominal pain, bleeding, fevers, or worsening of medical condition. Patient was counseled about treatment plan, medications, possible side effects, patientverbalized understanding. All questions were answered to the best of my ability. This discharge took greater then 30 minutes in planning, reviewing documentation, counseling the patient, and discussing with other team members." ASSESSMENT ASSESSMENT Assessment Abdominal pain secondary to peptic ulcer disease Date of Service: Aug 08, 2025 Billing Provider: IESHA WEEKS NP Common Visit Codes: 32219-QDR/OBS DISCH DAY >30min IESHA WEEKS NP Aug 08, 2025 16:34
[2025-08-08 16:42] VITALS: BP 127/77; PULSE 77; RESP 16; TEMP 97.5; O2SAT 99
[2025-08-08] MEDS ORDERED: DOCUSATE SOD 100 MG CAP PO SCH (22:00)
== END 2025-08-08 18:10 | disposition home or self-care (01) | DRG 241 ==
LOC: ER 21:51 → OVERFLOW 08-03 08:05 → EAST 08-03 22:34
PROVIDERS: ADMIT Nurse Practitioner Acute Care; ATTEND Nurse Practitioner Acute Care
PROC: 0DB68ZX Excision of Stomach, Via Natural or Artificial Opening Endoscopic, Diagnostic (ICD-10-PCS; 2025-08-07)
PROC: 0DB98ZX Excision of Duodenum, Via Natural or Artificial Opening Endoscopic, Diagnostic (ICD-10-PCS; principal; 2025-08-07 13:18)
DX: K26.9 Duodenal ulcer, unspecified as acute or chronic, without hemorrhage or perforation (principal); E11.9 Type 2 diabetes mellitus without complications; K29.80 Duodenitis without bleeding; K29.70 Gastritis, unspecified, without bleeding; E66.9 Obesity, unspecified; E87.6 Hypokalemia; K76.0 Fatty (change of) liver, not elsewhere classified; K21.9 Gastro-esophageal reflux disease without esophagitis; F41.9 Anxiety disorder, unspecified; F32.A Depression, unspecified; E78.5 Hyperlipidemia, unspecified; I10 Essential (primary) hypertension; K52.9 Noninfective gastroenteritis and colitis, unspecified; R79.89 Other specified abnormal findings of blood chemistry; R74.01 Elevation of levels of liver transaminase levels; Z87.11 Personal history of peptic ulcer disease; Z88.0 Allergy status to penicillin; Z88.8 Allergy status to other drugs, medicaments and biological substances; Z98.51 Tubal ligation status; Z98.891 History of uterine scar from previous surgery; Z90.49 Acquired absence of other specified parts of digestive tract; Z68.32 Body mass index [BMI] 32.0-32.9, adult
CPT/HCPCS: 36415; 43239; 71045; 74177; 74183; 76705; 80048; 80053; 80074; 80076; 80307; 80320; 81001; 82105; 82150; 82247; 82962; 83036; 83690; 84075; 84450; 84460; 84484; 84702; 85025; 85610; 85730; 86301; 86850; 86880; 86900; 86901; 86905; 86906; 93005; 96374; 96375; G0378; J1815; J2250; J2405; J2470; J2704; J3490

== ENCOUNTER 2025-09-05 13:53 | Emergency (ER) | payer MEDICAID ==
[~2025-09-05] VITALS: Ht 152.4 cm; Wt 98.6 kg
[~2025-09-05 13:53] MED LIST changes: +OMEP20TA PO; +SUCR1TAB31 OR; -TRAM50TA2 PO
[2025-09-05 13:55] VITALS: TEMP 98.8
--- NOTE | 2025-09-05 14:07 | ECG ---
[facility] Test Date: 2025-09-05 Test Time: 14:04:42 Pat Name: LUIS GROSSMAN Department: ED Room: Gender: F [employer]: craig : 1975 Requested By: NEIDA ROMAN Order Number: [id number] Reading MD: Measurements Intervals [place] Rate: 78 P: 45 AL: 138 QRS: 51 QRSD: 83 T: 41 QT: 383 QTc: 437 Interpretive Statements Sinus rhythm ST elev, probable normal early repol pattern Baseline wander in lead(s) I,II,aVR,aVL,aVF,V1,V2,V4,V5 Please click the below link to view image of tracing.
--- NOTE | 2025-09-05 14:25 | ED.PDOC ---
SOB-HPI HPI Comments 50 y/o F, with PMHx of anxiety, DM, HTN, HLD, and GERD presents to the ED for CC of shortness of breath. Patient states, she has been experiencing shortness of breath with associated bilateral rib pain sudden onset, today (09/05/25). Patient relays, pain to worsen with inspiration. Patient denies fever, chills, cough, or chest pain. No other symptoms or modifying factors are present at this time. 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 History Family History Family History: No family hx of Cancer, No family hx of DM, No family hx of Heart herber, No family hx of HTN, No family hx ofKidney herber, No family hx of Liver herber, No family hx of Lung herber, No family hx of Stroke Social History Smoker: Non-Smoker Alcohol: Denies ETOH Use Drugs: Denies Drug Use Lives In: Home Constitutional: denies: chills, diaphoresis, fatigue, fever, malaise, sweats, weakness, others EENTM: denies: blurred vision, double vision, ear bleeding, ear discharge, ear drainage, ear pain, ear ringing, eye pain, eye redness, hearing loss, mouth pain, mouth swelling, nasal discharge, nose bleeding, nose congestion, nose pain, photophobia, tearing, throat pain, throat swelling, voice changes, others Respiratory: reports: shortness of breath; denies: cough, hemoptysis, orthopnea, SOB at rest, SOB with excertion, stridor, wheezing, others Cardiovascular: denies: chest pain, dizzy spells, diaphoresis, Dyspnea on exertion, edema, irregular heart beat, left arm pain, lightheadedness, palpitations, PND, syncope, others Gastrointestinal: reports: nausea, vomiting; denies: abdomen distended, abdominal pain, blood streaked bowels, constipated, diarrhea, dysphagia, difficulty swallowing, hematemesis, melena, poor appetite, poor fluid intake, rectal bleeding, rectal pain, others Genitourinary: denies: abnormal vagina bleeding, burning, dyspareunia, dysuria, flank pain, frequency, hematuria, incontinence, pain, , vagina discharge, urgency, others Neurological: denies: dizziness, fainting, headache, left sided numbness, left sided weakness, numbness, paresthesia, pre-existing deficit, right sided numbness, right sided weakness, seizure, speech problems, tingling, tremors, weakness, others Musculoskeletal: denies: back pain, gout, joint pain, joint swelling, muscle pain, muscle stiffness, neck pain, others Integumetry: denies: bruises, change in color, change in hair/nails, dryness, laceration, lesions, lumps, rash, wounds, others Allergic/Immunocompromised: denies: Difficulty Healing, Frequent Infections, Hives, Itching, others Hematologic/Lymphatic: denies: anemia, blood clots, easy bleeding, easy bru ising, swollen glands, others Endocrine: denies: excessive hunger, excessive sweating, excessive thirst, e xcessive urination, flushing, intolerance to cold, intolerance to heat, unexplained weight gain, unexplained weight loss, others Psychiatric: denies: anxiety, bipolar disorder, depression, hopeless, panic disorder, schizophrenia, sleepless, suicidal, others All Other Systems: Reviewed and Negative Physical Exam General Appearance: No Apparent Distress HEENT: Normal ENT Inspection, Pharynx Normal, TMs Normal Neck: Full Range of Motion, Non-Tender, Normal, Normal Inspection Respiratory: Chest Non-Tender, Lungs Clear, No Accessory Muscle Use, No Respiratory Distress, Normal Breath Sounds Cardiovascular: No Edema, No JVD, No Murmur, No Gallop, Normal Peripheral Pulses, Regular Rate/Rhythm Breast Exam: Deferred Gastrointestinal: No Organomegaly, Non Tender, No Pulsatile Mass, Normal Bowel Sounds, Soft Genitalia: Deferred Pelvic: Deferred Rectal: Deferred Extremities: No calf tenderness, Normal capillary refill, Normal inspection, Normal range of motion, Non-tender, No pedal edema Musculoskeletal : Apperance: Normal Neurologic: Alert, tin stacker II-XII nml as Tested, No Motor Deficits, Normal Affect, Normal Mood, No Sensory Deficits Cerebellar Function: Normal Reflexes: Normal Skin: Dry, Normal Color, Warm Lymphatic: No Adenopathy EKG EKG : Pulse Rate (adult): 78 [place]: Normal Cardiac Rhythm: NSR Block: None Hypertrophy: None ST: Normal Was a procedure done? Was a procedure done?: No Differential Dx Differential Diagnosis: Asthma, Bronchitis, CHF, Pneumonia, Pulmonary Embolism, Sinusitis, Pharyngitis, URI X-Ray, Labs, Meds, VS Vital Signs Date Time Temp Pulse Resp B/P (MAP) Pulse Ox O2 Delivery O2 Flow Rate FiO2 09/05/25 14:29 78 09/05/25 14:04 78 09/05/25 13:55 98.8 93 22 143/74 100 98.8 Lab Test 09/05/25 15:43 09/05/25 14:47 Range/Units Troponin I High Sensitivity 8 5 </=34 ng/L White Blood Count 6.7 4.4-10.8 10^3/uL Red Blood Count 5.11 4.0-5.20 10^6/uL Hemoglobin 13.2 12.2-16.2 g/dL Hematocrit 40.2 36.0-46.0 % Mean Corpuscular Volume 78.5 L 80.0-100.0 fL Mean Corpuscular Hemoglobin 25.8 L 28.0-32.0 pg Mean Corpuscular Hemoglobin Concent 32.8 32.0-36.0 g/dL Red Cell Distribution Width 13.8 11.8-14.3 % Platelet Count 172 140-450 10^3/uL Mean Platelet Volume 9.5 6.9-10.8 fL Neutrophils (%) (Auto) 58.5 37.0-80.0 % Lymphocytes (%) (Auto) 33.9 10.0-50.0 % Monocytes (%) (Auto) 5.5 0.0-12.0 % Eosinophils (%) (Auto) 1.6 0.0-7.0 % Basophils (%) (Auto) 0.5 0.0-2.0 % Neutrophils # (Auto) 3.9 1.6-8.6 10 ^3/uL Lymphocytes # (Auto) 2.3 0.4-5.4 10 ^3/uL Monocytes # (Auto) 0.4 0-1.3 10 ^3/uL Eosinophils # (Auto) 0.1 0-0.8 10 ^3/uL Basophils # (Auto) 0 0-0.2 10 ^3/uL Nucleated Red Blood Cells 0.1 % D-Dimer, Quantitative 0.70 H 0.0-0.49 mg/L FEU Sodium Level 140 136-145 mmol/L Potassium Level 3.6 3.5-5.1 mmol/L Chloride Level 106 98-107 mmol/L Carbon Dioxide Level 22 20-31 mmol/L Anion Gap 12 5-15 Blood Urea Nitrogen 15 9-23 mg/dL Creatinine 0.69 0.550-1.02 mg/dL Glomerular Filtration Rate Calc 107 >90 mL/min BUN/Creatinine Ratio 21.7 H 10.0-20.0 Serum Glucose 207 H 74-106 mg/dL Calcium Level 9.2 8.7-10.4 mg/dL Current Medications Medications (Trade) Dose Ordered Sig/Ragini Route Start Time Stop Time Status Last Admin Aspirin 162 mg ONCE ONCE PO 09/05/25 14:30 09/05/25 14:31 DC 09/05/25 14:59 CHEST XY: IMPRESSION: NO ACUTE CARDIOPULMONARY PROCESS. The patient was given aspirin 162 mg by mouth. The patient's CBC and chemistry panel are within normal limits At this time, the patient is being discharged The patient will follow up with the primary care doctor The patient will return to emergency condition worsens. The patient understands and agrees with the management. Images Reviewed?: Images reviewed and evaluated by me Time of 1ST Reevaluation: 14:30 Reevaluation 1ST: Unchanged Patient Education/Counseling: Diagnosis, Treatment, Prognosis, Need For Follow Up Family Education/Counseling: No Family Present SEPSIS Sepsis Screen Date sepsis recognized/suspect: Sep 05, 2025 Time Sepsis recognized/suspect: 1356 Recent Procedure: No On Antibiotic Therapy: No Respiratory Rate >20: No Heart Rate >90: No Temp<36 C (96.8 F) or >38.3 C: No SBP <90 or MAP <65 mmHG: No New Acute Mental Status Change: No Is the patient on CPAP, BIPAP,: No Physician Orders Chest Two Views Routine (09/05/25 14:20) Troponin-I Hs (09/05/25 17:20) Vital Signs Date Time Temp Pulse Resp B/P (MAP) Pulse Ox O2 Delivery O2 Flow Rate FiO2 10/21/25 14:29 78 09/05/25 14:04 78 09/05/25 13:55 98.8 93 22 143/74 100 98.8 Laboratory Tests Test 09/05/25 14:47 White Blood Count 6.7 10^3/uL (4.4-10.8) Medications Medications Dose Ordered Sig/Ragini Route Start Time Stop Time Status Last Admin Dose Admin Aspirin 162 mg ONCE ONCE PO 09/05/25 14:30 09/05/25 14:31 DC 09/05/25 14:59 Departure 1 Departure Time of Disposition: 16:43 Impression: Primary Impression: Atypical chest pain Disposition: 01 HOME / SELF CARE / HOMELESS Condition: Fair Discharged With: Self Critical Care Note Critical Care Time?: No Stability Stability form required: No Heart Score Heart Score: Heart Score Response (Comments) Value History N/A 0 EKG N/A 0 Age N/A 0 Risk Factors N/A 0 Troponin N/A 0 Total 0 I personally scribed for NEIDA ROMAN MD ([email or web address]) on 09/05/25 at 14:25. Electronically submitted by Lorraine Tran ([employer]). I personally scribed for NEIDA ROMAN MD ([email or web address]) on 09/05/25 at 14:28. Electronically submitted by Lorraine Tran ([employer]). I personally scribed for NEIDA ROMAN MD ([email or web address]) on 09/05/25 at 14:29. Electronically submitted by Lorraine Tran ([employer]). I personally scribed for NEIDA ROMAN MD ([email or web address]) on 09/05/25 at 14:59. Electronically submitted by Lorraine Tran ([employer]). NEIDA ROMAN MD Sep 05, 2025 14:25
--- NOTE | 2025-09-05 14:56 | DVH ---
CLINICAL HISTORY: CP TECHNIQUE: Chest 2 views of the chest were obtained. COMPARISON: XY CHEST XRAY 1 VIEW on DOS: 08/02/25, XY CHEST XRAY 1 VIEW on DOS: 05/17/25, XR CHEST 2 VIE W on DOS: 04/12/25, XY CHEST PORTABLE on DOS: 10/14/24, CR CHEST 2 VIEW on DOS: 01/12/24 FINDINGS: The heart size and pulmonary vasculature are normal. The lungs are clear. No pleural effusion is pres ent. IMPRESSION: NO ACUTE CARDIOPULMONARY PROCESS.
[2025-09-05 14:58] LABS: Hematocrit 40.2 % (36.0-46.0); Hemoglobin 13.2 g/dL (12.2-16.2); Mean Corpuscular Hemoglobin 25.8 pg (28.0-32.0); Mean Corpuscular Volume 78.5 fL (80.0-100.0); Nucleated Red Blood Cells % 0.1 %
[2025-09-05 15:06] LABS: Chloride 106 mmol/L (98-107); Potassium 3.6 mmol/L (3.5-5.1); Sodium 140 mmol/L (136-145)
[2025-09-05 15:07] LABS: Anion Gap 12 (5-15); Carbon Dioxide 22 mmol/L (20-31)
[2025-09-05 15:08] LABS: Calcium 9.2 mg/dL (8.7-10.4)
[2025-09-05 15:12] LABS: BUN/Creatinine Ratio 21.7 (10.0-20.0); Blood Urea Nitrogen 15 mg/dL (9-23)
[2025-09-05 15:13] LABS: Glucose 207 mg/dL (74-106)
[2025-09-05 16:48] VITALS: BP 128/59; PULSE 78; RESP 16; O2SAT 98
== END 2025-09-05 16:51 | disposition home or self-care (01) ==
LOC: ER 14:00
DX: R07.89 Other chest pain (principal); R07.81 Pleurodynia; R06.02 Shortness of breath; K21.9 Gastro-esophageal reflux disease without esophagitis; E11.9 Type 2 diabetes mellitus without complications; E78.5 Hyperlipidemia, unspecified; I10 Essential (primary) hypertension; Z90.49 Acquired absence of other specified parts of digestive tract; Z98.51 Tubal ligation status
CPT/HCPCS: 36415; 71046; 80048; 84484; 85025; 85379; 93005

== ENCOUNTER 2025-10-21 23:42 | Emergency (ER) | payer MEDICAID ==
[~2025-10-21] VITALS: Ht 157.5 cm; Wt 73.2 kg
[2025-10-22] MEDS: PANTOPRAZOLE 40 MG/10 ML VIAL INJ IV ONE (00:15)
[2025-10-22] MEDS: SODIUM CHLORIDE 0.9% 1,000 ML IV ONE (00:15)
--- NOTE | 2025-10-22 00:18 | ED.PDOC ---
Psychiatric HPI Comments 50-year-old female who came to ER for overdose. About 1 1/2 hours prior to arrival, she had intentionally took 30 tablets of ibuprofen 200 mg, and 3 tablets of trazodone 50 mg. Patient states she was having headaches and she just wanted to sleep. She denies being suicidal. Patient appears very anxious at this time. Currently complaining of abdominal pain, denies any nausea or vomiting. Patient does have history of diabetes, peptic ulcer disease and GERD. 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 History Family History Family History: No family hx of Cancer, No family hx of DM, No family hx of Heart herber, No family hx of HTN, No family hx ofKidney herber, No family hx of Liver herber, No family hx of Lung herber, No family hx of Stroke Social History Smoker: Non-Smoker Alcohol: Denies ETOH Use Drugs: Denies Drug Use Lives In: Home Constitutional: denies: chills, diaphoresis, fatigue, fever, malaise, sweats, weakness, others EENTM: denies: blurred vision, double vision, ear bleeding, ear discharge, ear drainage, ear pain, ear ringing, eye pain, eye redness, hearing loss, mouth pain, mouth swelling, nasal discharge, nose bleeding, nose congestion, nose pain , photophobia, tearing, throat pain, throat swelling, voice changes, others Respiratory: denies: cough, hemoptysis, orthopnea, SOB at rest, shortness of breath, SOB with excertion, stridor, wheezing, others Cardiovascular: denies: chest pain, dizzy spells, diaphoresis, Dyspnea on exertion, edema, irregular heart beat, left arm pain, lightheadedness, palpitations, PND, syncope, others Gastrointestinal: reports: abdominal pain; denies: abdomen distended, blood streaked bowels, constipated, diarrhea, dysphagia, difficulty swallowing, hematemesis, melena, nausea, poor appetite, poor fluid intake, rectal bleeding, rectal pain, vomiting, others Genitourinary: denies: abnormal vagina bleeding, burning, dyspareunia, dysuria, flank pain, frequency, hematuria, incontinence, pain, , vagina discharge, urgency, others Neurological: denies: dizziness, fainting, headache, left sided numbness, left sided weakness, numbness, paresthesia, pre-existing deficit, right sided numbness, right sided weakness, seizure, speech problems, tingling, tremors, weakness, others Musculoskeletal: denies: back pain, gout, joint pain, joint swelling, muscle pain, muscle stiffness, neck pain, others Integumetry: denies: bruises, change in color, change in hair/nails, dryness, laceration, lesions, lumps, rash, wounds, others Allergic/Immunocompromised: denies: Difficulty Healing, Frequent Infections, Hives, Itching, others Hematologic/Lymphatic: denies: anemia, blood clots, easy bleeding, easy bruising, swollen glands, others Endocrine: denies: excessive hunger, excessive sweating, excessive thirst, excessive urination, flushing, intolerance to cold, intolerance to heat, unexplained weight gain, unexplained weight loss, others Psychiatric: reports: anxiety; denies: bipolar disorder, depression, hopeless, panic disorder, schizophrenia, sleepless, suicidal, others Physical Exam General Appearance: No Apparent Distress, Normal HEENT: Normal ENT Inspection, Pharynx Normal, TMs Normal Neck: Full Range of Motion, Non-Tender, Normal, Normal Inspection Respiratory: Chest Non-Tender, Lungs Clear, No Accessory Muscle Use, No Respiratory Distress, Normal Breath Sounds Cardiovascular: No Edema, No JVD, No Murmur, No Gallop, Normal Peripheral Pulses, Regular Rate/Rhythm Breast Exam: Deferred Gastrointestinal: No Organomegaly, Non Tender, No Pulsatile Mass, Normal Bowel Sounds, Soft Genitalia: Deferred Pelvic: Deferred Rectal: Deferred Extremities: No calf tenderness, Normal capillary refill, Normal inspection, Normal range of motion, Non-tender, No pedal edema Musculoskeletal : Apperance: Normal Neurologic: Alert, 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 Was a procedure done?: No Psych Differential Dx OD Differential Dx: Anxiety, Depression, Drug Overdose, Intentional, Suicidal Attempt, Suicidal Gesture Suicidal Differential Dx: Alcohol Abuse, Anxiety, Depression, Personality Disorder, Substance Abuse Intoxication Differential Dx: Drug-Induced Psychosis, Electrolyte Imbalance, Intoxication, Medical Noncompliance, Personality Disorder, Schizophrenia, Substance Abuse Disorder X-Ray, Labs, Meds, VS Vital Signs Date Time Temp Pulse Resp B/P (MAP) Pulse Ox O2 Delivery O2 Flow Rate FiO2 10/22/25 00:37 85 18 98 Room Air* 0 21 10/22/25 00:37 98.1 85 18 127/74 (91) 98 98.1 10/22/25 00:23 78 18 97 Room Air* 0 21 10/22/25 00:23 98.1 78 18 118/78 (91) 97 98.1 10/21/25 23:44 97.9 109 16 163/91 98 97.9 Lab Test 10/22/25 00:35 Range/Units White Blood Count 7.9 4.4-10.8 10^3/uL Red Blood Count 5.07 4.0-5.20 10^6/uL Hemoglobin 12.4 12.2-16.2 g/dL Hematocrit 38.1 36.0-46.0 % Mean Corpuscular Volume 75.2 L 80.0-100.0 fL Mean Corpuscular Hemoglobin 24.4 L 28.0-32.0 pg Mean Corpuscular Hemoglobin Concent 32.4 32.0-36.0 g/dL Red Cell Distribution Width 14.0 11.8-14.3 % Platelet Count 233 140-450 10^3/uL Mean Platelet Volume 8.7 6.9-10.8 fL Neutrophils (%) (Auto) 63.6 37.0-80.0 % Lymphocytes (%) (Auto) 27.3 10.0-50.0 % Monocytes (%) (Auto) 6.5 0.0-12.0 % Eosinophils (%) (Auto) 2.3 0.0-7.0 % Basophils (%) (Auto) 0.3 0.0-2.0 % Neutrophils # (Auto) 5.1 1.6-8.6 10 ^3/uL Lymphocytes # (Auto) 2.2 0.4-5.4 10 ^3/uL Monocytes # (Auto) 0.5 0-1.3 10 ^3/uL Eosinophils # (Auto) 0.2 0-0.8 10 ^3/uL Basophils # (Auto) 0 0-0.2 10 ^3/uL Nucleated Red Blood Cells 0.0 % Sodium Level 137 136-145 mmol/L Potassium Level 3.5 3.5-5.1 mmol/L Chloride Level 102 98-107 mmol/L Carbon Dioxide Level 22 20-31 mmol/L Anion Gap 13 5-15 Blood Urea Nitrogen 19 9-23 mg/dL Creatinine 0.58 0.550-1.02 mg/dL Glomerular Filtration Rate Calc 112 >90 mL/min BUN/Creatinine Ratio 32.8 H 10.0-20.0 Serum Glucose 248 H 74-106 mg/dL Calcium Level 8.9 8.7-10.4 mg/dL Total Bilirubin 0.6 0.2-1.0 mg/dL Aspartate Amino Transferase (AST) 15 13-40 U/L Alanine Aminotransferase (ALT) 16 7-40 U/L Alkaline Phosphatase 157 H 46-116 U/L Total Protein 7.3 5.7-8.2 g/dL Albumin 4.5 3.2-4.8 g/dL Beta HCG, Quantitative 1.0 L 1.5-4.2 mIU/mL Salicylates Level < 3.0 -30 mg/dL Acetaminophen Level < 2.0 L 10.0-20.0 UG/ML Plasma/Serum Blood Alcohol < 3.0 <10 mg/dL Current Medications Medications (Trade) Dose Ordered Sig/Ragini Route Start Time Stop Time Status Last Admin Sodium Chloride 1,000 ml @ 150 mls/hr Q6H40M ONCE IV 10/22/25 00:15 10/22/25 06:54 10/22/25 00:15 Pantoprazole Sodium (Protonix) 40 mg ONCE ONCE IV 10/22/25 00:15 10/22/25 00:17 DC 10/22/25 00:15 Time of 1ST Reevaluation: 00:15 Reevaluation 1ST: Unchanged Time of 2ND Reevaluation: 01:58 Reevaluation 2ND: Improved Patient Education/Counseling: Diagnosis, Treatment, Prognosis, Need For Follow Up Family Education/Counseling: No Family Present Comments This is a patient with a history of suicide ideation many years ago, presents reporting that she was not trying to hurt herself was trying to get some sleep because she has chronic pain syndrome. Patient took a number of Motrin 200 mg each and three trazodone total 150 mg. She has not vomited here but she does have some epigastric discomfort. She has a history of GERD and gastritis. Poison control was contacted and concurs with the treatment plan. So far patient's workup is unremarkable. He has she has no evidence of kidney failure electronic imbalance, or EKGs disturbances. We are waiting tele psych evaluation inpatient we will receive another chemistry and EKG has sudden this morning. If these are normal patient will be medically cleared and most likely will require inpatient psych care pending psychiatry evaluation. I was signed out the care of this patient is a Dr. Alvarez at shift change Departure 1 Departure Time of Disposition: 05:10 Impression: Primary Impression: Overdose Disposition: 30 STILL A PATIENT Condition: Serious Discharged With: Self Critical Care Note Critical Care Time?: Yes (55 min-critical care time only) Critical care comment: Due to concerns for patients condition deteriorating, the care required my highest level of attention and readiness to intervene. I assessed the patient, reviewed the medical records, ordered the appropriate tests and treatments, then reassessed for results and responsiveness. I communicated with medical personnel and consultants and formulated a plan of care. Total critical care time excludes any procedures Stability Stability form required: No Heart Score Heart Score: Heart Score Response (Comments) Value History N/A 0 EKG N/A 0 Age N/A 0 Risk Factors N/A 0 Troponin N/A 0 Total 0 I personally scribed for RADHA AVILA MD ([email or web address]) on 10/22/25 at 00:18. Electronically submitted by Vernon Siddiqui ([email or web address]). RADHA AVILA MD Oct 22, 2025 00:18
[2025-10-22 00:23] VITALS: PULSE 78; RESP 18; O2SAT 97
[2025-10-22 00:37] VITALS: PULSE 85; RESP 18; O2SAT 98
[2025-10-22 00:44] LABS: Hemoglobin 12.4 g/dL (12.2-16.2); Nucleated Red Blood Cells % 0.0 %
[2025-10-22 00:46] LABS: Hematocrit 38.1 % (36.0-46.0); Mean Corpuscular Hemoglobin 24.4 pg (28.0-32.0); Mean Corpuscular Volume 75.2 fL (80.0-100.0)
[2025-10-22 01:02] LABS: Acetaminophen < 2.0 UG/ML (10.0-20.0); Alanine Aminotransferase 16 U/L (7-40); Albumin 4.5 g/dL (3.2-4.8); Alkaline Phosphatase 157 U/L (46-116); Anion Gap 13 (5-15); BUN/Creatinine Ratio 32.8 (10.0-20.0); Bilirubin, Total 0.6 mg/dL (0.2-1.0); Blood Urea Nitrogen 19 mg/dL (9-23); Calcium 8.9 mg/dL (8.7-10.4); Carbon Dioxide 22 mmol/L (20-31); Chloride 102 mmol/L (98-107); Glucose 248 mg/dL (74-106); Potassium 3.5 mmol/L (3.5-5.1); Salicylate < 3.0 mg/dL (-30); Sodium 137 mmol/L (136-145); Total Protein 7.3 g/dL (5.7-8.2)
--- NOTE | 2025-10-22 05:49 | DVHINCON2 ---
Date of Service if different f: Oct 22, 2025 Time of Service: 05:22 Consult Consult Note PSYCHIATRY ED NEW CONSULT HPI: 50 yo pt with PPH of depression and anxiety presents to ED BIBA for safety, psychiatric stabilization, and possible med initiation in setting of SA via intentional drug OD of ~30 tabs of Ibuprofen 200 mg tabs and ~3 tabs Trazodone 50 mg. Psychiatry consulted for safety evaluation and recommendations in context of current presentation Pt reports over past several weeks experiencing worsening depressed mood, hopelessness/helplessness, negative thoughts, loss of interest, decreased energy, poor sleep, low self-worth, and anxiety symptoms to include excessive worry, emotional dysregulation, racing/intrusive thoughts, feeling tensed and "overwhelmed with everything" and irritability. Also SI onset earlier today resulting in SA via intentional drug OD of ~30 tabs of Ibuprofen 200 mg tabs and ~3 tabs Trazodone 50 mg. Identifies primary stress as unemployment, inadequate housing conditions, worrying about her younger children, and financial strains. Denies HI/AVH/paranoia/catatonic/manic/dissociative symptoms Does not have active outpt MH services established at this time although has sought outpt MH services in past Currently rx'd trazodone 50 mg qhs prn insomnia only, several prior psych med trials although cannot recall names SPARKLE hx: Denies ETOH, THC or IDU FINANCE LEAD although hx of ETOH and meth dependency, sober for many years SH: with 3 adult children whom she resides with, unemployed, some support system noted (immediate family). Unknown trauma hx FH: Denies FH of psych hospitalizations, suicide attempts, or completed suicides PMH: Chronic joint pain issues, IDDM, gastric ulcers. No hx of seizures/TBI, HIV/hep C, cardiac dz, or recent head injuries, NKDA Remote hx of SIB via cutting, SA x 1 via OD at age 19 resulting in prior psych hospitalization/5150 hold. Denies history of violence, aggression, or assaultive behaviors. Denies any legal problems. Does not have access to firearms MSE: General Appearance/Behavior: Alert/awake; appears stated age, overweight, fair grooming/hygiene; calm/polite and cooperative, tearful at times, fair eye contact, no PMA/PMR Speech: coherent, rrr Thought Process: L/L/GD Thought Content: Abnormal Thoughts/Perceptions: denies dissociative symptoms Homicidality / Violent Thoughts: adamantly denies HI Suicidality: + SI Hallucinations: denies AVTH Delusions: denies paranoia, persecutory, or grandiose delusions Obsessions /compulsions: None Judgment/Insight: fair/fair Mood & Affect: "depressed" with mood-congruent, somewhat restricted/appropriate/tearful at times Orientation: oriented x 3 Attention/Concentration: appears intact Cognition: grossly intact Assessment: 50 yo pt with PPH of depression and anxiety presents to ED BIBA for safety, psychiatric stabilization, and possible med initiation in setting of SA via intentional drug OD of ~30 tabs of Ibuprofen 200 mg tabs and ~3 tabs Trazodone 50 mg Pt s/p significant SA in setting of several recent acute life stressors (see hpi). Not on any psychotropics which may be contributing to current symptoms. No outpt MH services at present. Medically cleared in ED Acute safety risk remains slightly elevated and is appropriate for inpatient psychiatric admission for further safety, psychiatric stabilization, and poss ible medication initiation. Pt willing to transfer to inpt psych facility voluntarily but recommend 5150 DTS hold due to severity of SA Primary Diagnosis: Adjustment disorder with depressed mood. Major Depressive disorder, recurrent, moderate/severe Recommend 5150 DTS AND transfer to inpt psych facility for higher level of care 1:1 sitter is recommended Maintain suicide/elopement precautions Defer any psychotropic med initiation to accepting inpt psych facility in setting of OD may benefit from SSRI tx initiation Reconsult telepsych services if pt requests to be discharged from ED prior to transfer/upon hold expiration Pt verbalized understanding and is receptive to above tx plan This case was discussed with ED nurse/provider and all parties in agreement with above tx plan Ovidio Machado MD Plan discussed with: Patient OVIDIO MACHADO MD Oct 22, 2025 05:49
[2025-10-22 07:30] VITALS: PULSE 88; RESP 12; O2SAT 98
[2025-10-22 07:31] LABS: Potassium 3.8 mmol/L (3.5-5.1); Sodium 138 mmol/L (136-145)
[2025-10-22 07:32] LABS: Anion Gap 10 (5-15); Carbon Dioxide 20 mmol/L (20-31)
[2025-10-22 07:37] LABS: BUN/Creatinine Ratio 25.4 (10.0-20.0); Blood Urea Nitrogen 16 mg/dL (9-23)
[2025-10-22 07:38] LABS: Calcium 8.2 mg/dL (8.7-10.4); Chloride 108 mmol/L (98-107); Glucose 269 mg/dL (74-106)
[2025-10-22 11:10] VITALS: PULSE 100; RESP 20; O2SAT 100
[2025-10-22 11:21] LABS: Urine Protein, UAD Negative (Negative)
[2025-10-22 11:44] LABS: Amphetamine Screen, Urine Neg (NEGATIVE); Barbiturate Scree,Urine Neg (NEGATIVE); Benzodiazephine Screen, Urine Neg (NEGATIVE); Cocaine Screen, Urine Neg (NEGATIVE); Opiate Scree,Urine Neg (NEGATIVE); Phencyclidine Screen, Urine Neg (NEGATIVE)
[2025-10-22 11:45] LABS: Cannabinoid Screen, Urine Neg (NEGATIVE)
[2025-10-22] MEDS: ACETAMINOPHEN 325 MG TAB PO ONE (13:47)
[2025-10-22] MEDS: ACETAMINOPHEN 500 MG TAB or CAP PO ONE (13:47)
[2025-10-22] MEDS ORDERED: DEXTROSE (50%) 50ML SYRG IV PRN (14:00)
[2025-10-22] MEDS: ACCU-CHEK COMFORT CURVE STRIP VI SCH (16:56)
[2025-10-22] MEDS: InsuLIN REG 1unit/0.01ml Soln (100units/ml) SC SCH ×2 (16:56→22:22)
[2025-10-23 00:10] VITALS: PULSE 87; RESP 21; O2SAT 98
[2025-10-23 08:47] VITALS: BP 118/64; TEMP 98.2
[2025-10-23 08:48] VITALS: PULSE 91; RESP 20; O2SAT 98
== END 2025-10-23 05:37 | disposition short-term general hospital (02) ==
LOC: ER 23:42
DX: T43.212A Poisoning by selective serotonin and norepinephrine reuptake inhibitors, intentional self-harm, initial encounter (principal); E11.9 Type 2 diabetes mellitus without complications; I10 Essential (primary) hypertension; Z90.49 Acquired absence of other specified parts of digestive tract; Z98.51 Tubal ligation status; X58.XXXA Exposure to other specified factors, initial encounter; Y93.89 Activity, other specified; Y92.89 Other specified places as the place of occurrence of the external cause; Y99.8 Other external cause status
CPT/HCPCS: 36415; 80048; 80053; 80307; 80320; 80329; 81001; 82947; 84702; 85025; 96361; 96372; 96374; 99285; J1815; J2470; J7030; 82962; 99291